=== PATIENT | male | born 1955 | race Caucasian/White ===

== ENCOUNTER 2018-01-19 13:14 | Emergency (ER) | payer SELFPAY ==
[~2018-01-19] VITALS: Ht 177.8 cm; Wt 92.0 kg
[2018-01-19 13:19] VITALS: BP 196/110; PULSE 96; RESP 16; TEMP 97.5; O2SAT 98
[2018-01-19] MEDS ORDERED: MORPHINE SULFATE 4 MG/ML INJ IV PUSH ONE (13:30)
[2018-01-19] MEDS ORDERED: ONDANSETRON HCL 4 MG/2 ML VIAL IV PUSH ONE (13:30)
[2018-01-19] MEDS ORDERED: SODIUM CHLORIDE 0.9% FLUSH 10 ML FLUSH IV FLUSH PRN (13:30)
--- NOTE | 2018-01-19 13:41 | PD ---
HPI Chief Complaint: Flank/Kidney Pain Time Seen by Provider: 13:21 Travel History International Travel<30 days: No Contact w/Intl Traveler<30days: No Traveled to known affect area: No History of Present Illness HPI Patient was seen and examined in the presence of a nurse at all times This is a 62-year-old male who presents for left flank pain. He states that around 10:30 AM, he had gradual onset of left flank pain radiating to the left lower abdomen. No associated fever, chills, nausea, vomiting, diarrhea. No urinary urgency, frequency, dysuria, hematuria. He states that it felt like he needed to have a bowel movement so he sat on the toilet and bear down and there is only a small amount of bright red blood on the toilet paper. No stool. He does have a history of hemorrhoids. He states that he has never had a colonoscopy. No history of kidney stones. The pain is not aggravated by bending or twisting. No focal weakness, numbness, tingling, saddle paresthesias , bowel or bladder dysfunction, IV drug abuse. He states that he has been otherwise well recently other than a mild cough for about a week and a half. He does continue to smoke cigarettes heavily. He took an Aleve this morning before the pain started but has not otherwise taken anything for the pain. Symptoms are mild in severity. Sore in nature. Onset gradual. PFSH Past Medical History Narrative Medical Hepatitis C status post treatment Diminished Hearing: No Hepatitis: Yes (C) Tetanus Vaccination: Unknown Influenza Vaccination: No Past Surgical History Surgical History: No Previous Surgery Social History Alcohol Use: No (FORMER) Tobacco Use: Yes Substance Use: No Allergies-Medications (Allergen,Severity, Reaction): Coded Allergies: No Known Allergies (Unverified , 01/19/18) Review of Systems Except as stated in HPI: all other systems reviewed are Neg Physical Exam Narrative GENERAL: Alert, well nourished, well appearing patient resting on the bed in no acute distress. Vital Signs reviewed SKIN: Focused skin assessment warm/dry. HEAD: Atraumatic. Normocephalic. EYES: Pupils equal and round. No scleral icterus. No injection or drainage. ENT: No nasal bleeding or discharge. Mucous membranes pink and moist. NECK: Trachea midline. No JVD. Spontaneous, painless full range of motion with no meningismus CARDIOVASCULAR: Regular rate and rhythm. No murmur appreciated. Extremities warm and well perfused with bounding peripheral pulses RESPIRATORY: No accessory muscle use. Clear to auscultation. Breath sounds equal bilaterally. Breathing easily and speaking in full sentences GASTROINTESTINAL: Abdomen soft, tender in left lower quadrant, left mid abdomen and left flank, nondistended. Normal bowel sounds. No rigid, rebound Rectal exam performed in presence of nurse Rylee: Normal tone. No obvious masses. Small amount of light pink blood in vault. No melena. No saddle paresthesias MUSCULOSKELETAL: No obvious deformities. No clubbing. No cyanosis. No edema. Compartments are soft NEUROLOGICAL: Awake and alert. No obvious cranial nerve deficits. Motor grossly within normal limits. Normal speech. Sensation intact. Normal gait Data Data Last Documented VS Vital Signs Date Time Temp Pulse Resp B/P (MAP) Pulse Ox O2 Delivery O2 Flow Rate FiO2 01/19/18 14:49 79 16 181/91 (121) 94 Room Air 01/19/18 13:19 97.5 Orders Orders Complete Blood Count With Diff (01/19/18 13:29) Comprehensive Metabolic Panel (01/19/18 13:29) Lipase (01/19/18 13:29) Prothrombin Time / Inr (Pt) (01/19/18 13:29) Act Partial Throm Time (Ptt) (01/19/18 13:29) Urinalysis - C+S If Indicated (01/19/18 13:29) Ct Abd/Pel W/O Iv Contrast (01/19/18 13:29) Iv Access Insert/Monitor (01/19/18 13:29) Ecg Monitoring (01/19/18 13:29) Oximetry (01/19/18 13:29) Sodium Chloride 0.9% Flush (Ns Flush) (01/19/18 13:30) Electrocardiogram (01/19/18 13:29) Chest, Single Ap (01/19/18 13:29) Morphine Inj (Morphine Inj) (01/19/18 13:30) Ondansetron Inj (Zofran Inj) (01/19/18 13:30) Ketorolac Inj (Toradol Inj) (01/19/18 14:45) Chest, Pa & Lat (01/19/18 ) Urine Culture (01/19/18 14:48) Labs Laboratory Tests Test 01/19/18 13:43 01/19/18 14:48 White Blood Count 8.7 TH/MM3 Red Blood Count 5.01 MIL/MM3 Hemoglobin 14.7 GM/DL Hematocrit 45.8 % Mean Corpuscular Volume 91.3 FL Mean Corpuscular Hemoglobin 29.4 PG Mean Corpuscular Hemoglobin Concent 32.2 % Red Cell Distribution Width 15.6 % Platelet Count 117 TH/MM3 Mean Platelet Volume 10.1 FL Neutrophils (%) (Auto) 87.0 % Lymphocytes (%) (Auto) 8.8 % Monocytes (%) (Auto) 3.0 % Eosinophils (%) (Auto) 0.2 % Basophils (%) (Auto) 1.0 % Neutrophils # (Auto) 7.5 TH/MM3 Lymphocytes # (Auto) 0.8 TH/MM3 Monocytes # (Auto) 0.3 TH/MM3 Eosinophils # (Auto) 0.0 TH/MM3 Basophils # (Auto) 0.1 TH/MM3 CBC Comment DIFF FINAL Differential Comment Prothrombin Time 12.1 SEC Prothromb Time International Ratio 1.2 RATIO Activated Partial Thromboplast Time 27.0 SEC Blood Urea Nitrogen 26 MG/DL Creatinine 1.60 MG/DL Random Glucose 132 MG/DL Total Protein 7.9 GM/DL Albumin 3.8 GM/DL Calcium Level 8.7 MG/DL Alkaline Phosphatase 76 U/L Aspartate Amino Transf (AST/SGOT) 30 U/L Alanine Aminotransferase (ALT/SGPT) 33 U/L Total Bilirubin 0.7 MG/DL Sodium Level 138 MEQ/L Potassium Level 4.5 MEQ/L Chloride Level 106 MEQ/L Carbon Dioxide Level 21.1 MEQ/L Anion Gap 11 MEQ/L Estimat Glomerular Filtration Rate 44 ML/MIN Lipase 148 U/L Urine Collection Type CLEAN CATCH Urine Color YELLOW Urine Turbidity CLEAR Urine pH 5.0 Urine Specific [place] GREATER THAN 1.030 Urine Protein 300 OR GREATER mg/dL Urine Glucose (UA) NEG mg/dL Urine Ketones 15 mg/dL Urine Occult Blood LARGE Urine Nitrite NEG Urine Bilirubin SMALL Urine Urobilinogen 1.0 MG/DL Urine Leukocyte Esterase NEG Urine RBC 20-24 /hpf Urine WBC 9-14 /hpf Urine Squamous Epithelial Cells 0-5 /hpf Microscopic Urinalysis Comment CULTURE INDICATED Urine Collection Time 14:483 MDM Medical Decision Making Medical Screen Exam Complete: Yes Emergency Medical Condition: Yes Medical Record Reviewed: Yes Interpretation(s) Laboratory Tests Test 01/19/18 13:43 01/19/18 14:48 White Blood Count 8.7 TH/MM3 Red Blood Count 5.01 MIL/MM3 Hemoglobin 14.7 GM/DL Hematocrit 45.8 % Mean Corpuscular Volume 91.3 FL Mean Corpuscular Hemoglobin 29.4 PG Mean Corpuscular Hemoglobin Concent 32.2 % Red Cell Distribution Width 15.6 % Platelet Count 117 TH/MM3 Mean Platelet Volume 10.1 FL Neutrophils (%) (Auto) 87.0 % Lymphocytes (%) (Auto) 8.8 % Monocytes (%) (Auto) 3.0 % Eosinophils (%) (Auto) 0.2 % Basophils (%) (Auto) 1.0 % Neutrophils # (Auto) 7.5 TH/MM3 Lymphocytes # (Auto) 0.8 TH/MM3 Monocytes # (Auto) 0.3 TH/MM3 Eosinophils # (Auto) 0.0 TH/MM3 Basophils # (Auto) 0.1 TH/MM3 CBC Comment DIFF FINAL Differential Comment Prothrombin Time 12.1 SEC Prothromb Time International Ratio 1.2 RATIO Activated Partial Thromboplast Time 27.0 SEC Blood Urea Nitrogen 26 MG/DL Creatinine 1.60 MG/DL Random Glucose 132 MG/DL Total Protein 7.9 GM/DL Albumin 3.8 GM/DL Calcium Level 8.7 MG/DL Alkaline Phosphatase 76 U/L Aspartate Amino Transf (AST/SGOT) 30 U/L Alanine Aminotransferase (ALT/SGPT) 33 U/L Total Bilirubin 0.7 MG/DL Sodium Level 138 MEQ/L Potassium Level 4.5 MEQ/L Chloride Level 106 MEQ/L Carbon Dioxide Level 21.1 MEQ/L Anion Gap 11 MEQ/L Estimat Glomerular Filtration Rate 44 ML/MIN Lipase 148 U/L Urine Collection Type CLEAN CATCH Urine Color YELLOW Urine Turbidity CLEAR Urine pH 5.0 Urine Specific [place] GREATER THAN 1.030 Urine Protein 300 OR GREATER mg/dL Urine Glucose (UA) NEG mg/dL Urine Ketones 15 mg/dL Urine Occult Blood LARGE Urine Nitrite NEG Urine Bilirubin SMALL Urine Urobilinogen 1.0 MG/DL Urine Leukocyte Esterase NEG Urine RBC 20-24 /hpf Urine WBC 9-14 /hpf Urine Squamous Epithelial Cells 0-5 /hpf Microscopic Urinalysis Comment CULTURE INDICATED Urine Collection Time 14:483 Last 24 hours Impressions Chest X-Ray 01/19/18 1329 Signed Impressions: Service Date/Time: Friday, January 19, 2018 13:44 - CONCLUSION: Hazy bibasilar parenchymal opacities. Yung Olivarez MD Abdomen/Pelvis CT 01/19/18 1329 Signed Impressions: Service Date/Time: Friday, January 19, 2018 14:00 - CONCLUSION: 2 mm left UVJ stone with mild obstruction Residual 1mm calculi in both kidneys. Wild Lopez MD FACR Chest X-Ray 01/19/18 0000 Signed Impressions: Service Date/Time: Friday, January 19, 2018 14:39 - CONCLUSION: 1. No acute cardiopulmonary disease. Elio Hunter MD Differential Diagnosis UTI, pyelonephritis, nephrolithiasis, diverticulitis, bronchitis, pneumonia Narrative Course IV access was established. Labs, imaging were performed. Two-view chest x-ray was performed after single view x-ray showed possible basilar opacities versus respiratory effort. Patient has a 2 mm left ureteral calculus at the UVJ. Patient's pain was controlled with a dose of morphine and Toradol. He was given IV fluids. Upon reassessment at 3:30 PM: He is resting comfortably on the bed in no acute distress. His pain is well controlled. No vomiting. He was counseled regarding results of his workup. Plan for discharge with supportive care, pain control, Keflex and close outpatient follow-up. Patient was also counseled regarding smoking cessation. Patient understands the importance of close outpatient follow-up. He understands he may require further testing and treatment as an outpatient. He understands strict return indications. He is comfortable with this plan and eager to go home. [facility] Point of Care Internal Pos. & Neg. Controls: Passed Fecal Specimen Occult Blood: Positive (Light pink blood, minimal stool sample present) Diagnosis Primary Impression: Left ureteral calculus Referrals: Walker Estrella DO Patient Instructions: General Instructions, Kidney Stones (DC) Additional Instructions: Use [place] as needed for severe pain. No alcohol or driving after this medication. Take Flomax as directed. Take albuterol as needed for wheezing. Take Levaquin as directed. Follow-up with urologist. Return with worsening symptoms. Follow-up with primary physician in 3 days for recheck including of blood pressure. Med/Other Pt SpecificInfo: Prescription(s) given Scripts Albuterol 8.5 GM Inh (Proair Hfa 8.5 GM Inh) 90 Mcg/Act Aer 2 PUFF INH Q4-6H Y for SHORTNESS OF BREATH, #1 INHALER 0 Refills 108 mcg/actuation Prov: Elke Solorzano MD 01/19/18 Levofloxacin (Levaquin) 750 Mg Tablet 750 MG PO DAILY for Infection for 5 Days, #5 TAB 0 Refills Prov: Elke Solorzano MD 01/19/18 Tamsulosin (Flomax) 0.4 Mg Cap 0.4 MG PO HS for 5 Days, #30 CAP 0 Refills Prov: Elke Solorzano MD 01/19/18 Hydrocodone-Acetaminophen ([place]) 5 Mg-325 Mg Tab 1 TAB PO Q6H Y for PAIN, #15 TAB 0 Refills Prov: Elke Solorzano MD 01/19/18 Disposition: 01 DISCHARGE HOME Condition: Stable Elke Solorzano MD Jan 19, 2018 13:41
[2018-01-19 13:53] LABS: AUTOMATED NEUTROPHIL # 7.5 TH/MM3 (1.8-7.7); BASOPHIL # 0.1 TH/MM3 (0-0.2); EOSINOPHIL % 0.2 % (0.0-4.0); HEMATOCRIT 45.8 % (39.0-51.0); HEMOGLOBIN 14.7 GM/DL (13.0-17.0); LYMPH % 8.8 % (9.0-44.0); LYMPHOCYTE # 0.8 TH/MM3 (1.0-4.8); MEAN CELL VOLUME 91.3 FL (80.0-100.0); MEAN CORPUSCULAR HEMOGLOBIN 29.4 PG (27.0-34.0); MEAN CORPUSCULAR HGB CONC 32.2 % (32.0-36.0); MEAN PLATELET VOLUME 10.1 FL (7.0-11.0); MONOCYTE # 0.3 TH/MM3 (0-0.9); PLATELET COUNT 117 TH/MM3 (150-450); RED BLOOD COUNT 5.01 MIL/MM3 (4.50-5.90); RED CELL DISTRIBUTION WIDTH 15.6 % (11.6-17.2); WHITE BLOOD COUNT 8.7 TH/MM3 (4.0-11.0)
[2018-01-19 13:54] VITALS: RESP 18; O2SAT 95
[2018-01-19 14:08] LABS: CHLORIDE 106 MEQ/L (98-107); SODIUM (NA) 138 MEQ/L (136-145)
[2018-01-19 14:12] VITALS: BP 177/102; PULSE 92; RESP 16; O2SAT 92
[2018-01-19 14:12] LABS: CALCIUM 8.7 MG/DL (8.5-10.1)
[2018-01-19 14:13] LABS: ALBUMIN 3.8 GM/DL (3.4-5.0); BICARBONATE 21.1 MEQ/L (21.0-32.0); BLOOD UREA NITROGEN 26 MG/DL (7-18); GLUCOSE,RANDOM 132 MG/DL (74-106)
[2018-01-19 14:16] LABS: ALT (GPT) 33 U/L (12-78); AST (GOT) 30 U/L (15-37); GLOMERULAR FILTRATION RATE 44 ML/MIN (>89); INTERNATIONAL NORMALIZED RATIO 1.2 RATIO; PROTHROMBIN TIME - PATIENT 12.1 SEC (9.8-11.6)
[2018-01-19 14:17] LABS: TOTAL BILIRUBIN ADULT 0.7 MG/DL (0.2-1.0); TOTAL PROTEIN 7.9 GM/DL (6.4-8.2)
[2018-01-19 14:18] LABS: ALKALINE PHOSPHATASE 76 U/L (45-117)
--- NOTE | 2018-01-19 14:18 | RADRPT ---
EXAM DATE/TIME: 01/19/2018 14:00 [facility] COMPARISON: No previous studies available for comparison. INDICATIONS : Left flank pain today. ORAL CONTRAST: No oral contrast ingested. RADIATION DOSE: 24.12 CTDIvol (mGy) MEDICAL HISTORY : Hepatitis C. SURGICAL HISTORY : None. ENCOUNTER: Initial ACUITY: 1 day PAIN SCALE: 10/10 LOCATION: Left flank TECHNIQUE: Volumetric scanning of the abdomen and pelvis was performed. Using automated exposure control and ad justment of the mA and/or kV according to patient size, radiation dose was kept as low as reasonably achievable to obtain optimal diagnostic quality images. DICOM format image data is available electro nically for review and comparison. FINDINGS: The lung base is clear. The liver is small shrunken and free of focal defects. Gallbladder unremarkable Pancreas and adrenal glands appear normal The spleen is unremarkable Right kidney: 2, 1 mm nonobstructing calculi Left kidney: Moderate perinephric stranding with 1 mm calculus in the lower pole. The ureter is prominent extendi ng into the pelvis with areas 2 mm left UVJ stone. Bladder prostate and seminal vesicles unremarkable Bone windows reveal only degenerative changes. CONCLUSION: 2 mm left UVJ stone with mild obstruction Residual 1mm calculi in both kidneys. Wild Lopez MD FACR on January 19, 2018 at 14:14 Board Certified Radiologist. This report was verified electronically.
--- NOTE | 2018-01-19 14:20 | RADRPT ---
EXAM DATE/TIME: 01/19/2018 13:44 [facility] COMPARISON: No previous studies available for comparison. INDICATIONS : Cough. MEDICAL HISTORY : Hepatitis C. SURGICAL HISTORY : None. ENCOUNTER: Initial ACUITY: 1 day PAIN SCORE: 11/29 LOCATION: chest FINDINGS: There is mild hazy parenchymal opacity over the lung bases. This may be mild edema or developing infi ltrate. Heart is borderline in size. No significant effusion is suspected. CONCLUSION: Hazy bibasilar parenchymal opacities. Yung Olivarez MD on January 19, 2018 at 14:15 Board Certified Radiologist. This report was verified electronically.
[2018-01-19] MEDS ORDERED: KETOROLAC TROMETHAMINE 30 MG/ML (IVP) VIAL IV PUSH ONE (14:45)
[2018-01-19 14:49] VITALS: BP 181/91; PULSE 79; RESP 16; O2SAT 94
[2018-01-19 14:55] LABS: BILIRUBIN, URINE SMALL (NEG); BLOOD, URINE LARGE (NEG); GLUCOSE,URINE NEG (NEG); KETONE, URINE 15 mg/dL (NEG); NITRITE,URINE NEG (NEG); URINE COLOR YELLOW (YELLW/STRAW); URINE LEUKOCYTE ESTERASE NEG (NEG)
[2018-01-19 15:01] LABS: SQUAMOUS EPITHELIAL CELL URINE 0-5 /hpf (0-5)
--- NOTE | 2018-01-19 15:29 | RADRPT ---
EXAM DATE/TIME: 01/19/2018 14:39 [facility] COMPARISON: No previous studies available for comparison. INDICATIONS : Cough MEDICAL HISTORY : Hepatitis C. SURGICAL HISTORY : None. ENCOUNTER: Subsequent ACUITY: 1 day PAIN SCORE: 10 LOCATION: Bilateral chest FINDINGS: PA and lateral views of the chest demonstrate the lungs to be symmetrically aerated without evidence of mass, infiltrate or effusion. The cardiomediastinal contours are unremarkable. Osseous structure s are intact. CONCLUSION: 1. No acute cardiopulmonary disease. Elio Hunter MD on January 19, 2018 at 15:28 Board Certified Radiologist. This report was verified electronically.
[2018-01-19] MEDS ORDERED: TAMS5CAP PO (16:03)
[2018-01-19] MEDS ORDERED: NORC5TAB PO (16:03)
[2018-01-19] MEDS ORDERED: LEVA750T9 PO (16:03)
[2018-01-19] MEDS ORDERED: ALBUAER3 INH (16:03)
[2018-01-19 16:10] VITALS: BP 160/86
--- NOTE | 2018-01-20 09:53 | EKG ---
Date Performed: 01/19/2018 Time Performed: 13:38:52 PTAGE: 62 years EKG: Sinus rhythm POSSIBLE LEFT ATRIAL ENLARGEMENT POSSIBLE LEFT VENTRICULAR HYPERTROPHY POSSIBLE INFERIOR MYOCARDIAL INFARCTION ABNORMAL ECG NO PREVIOUS TRACING DOCTOR: Wiliam Ch Interpretating Date/Time 01/20/2018 09:51:39
== END 2018-01-19 16:32 | disposition home or self-care (01) ==
LOC: PHED 13:14
DX: N20.1 Calculus of ureter (principal); R94.31 Abnormal electrocardiogram [ECG] [EKG]; R05 Cough; F17.210 Nicotine dependence, cigarettes, uncomplicated
CPT/HCPCS: 71045; 71046; 74176; 80053; 81001; 83690; 85025; 85610; 85730; 87086; 93005; 96374; 96375; 99285; J1885; J2270; J2405

== ENCOUNTER 2018-03-10 20:27 | Observation (INO) | payer SELFPAY ==
[~2018-03-10] VITALS: Ht 177.8 cm; Wt 96.2 kg
[~2018-03-10 20:27] MED LIST: ALBUAER3 INH; LEVA750T9 PO; NORC5TAB PO; TAMS5CAP PO
[2018-03-10 20:50] VITALS: BP 169/103; PULSE 102; RESP 32; TEMP 98.2; O2SAT 98
--- NOTE | 2018-03-10 21:12 | PD ---
HPI Chief Complaint: Respiratory Symptoms Time Seen by Provider: 21:10 Travel History International Travel<30 days: No Contact w/Intl Traveler<30days: No Traveled to known affect area: No History of Present Illness HPI 62-year-old male patient with history of previous kidney stones, presents to the ER today for several weeks history of worsening leg swelling, dyspnea on exertion, shortness of breath, coughing. He denies any fevers, chest pains, or any other symptoms. He states it gets worse when he lays down and he has to try to switch side sometimes because of the breathing issues. He denies previous issue with this. Modifying Factors: None Associated Signs & Symptoms: Worsening dyspnea on exertion, leg swelling Risk Factors: None PFSH Past Medical History Diminished Hearing: No Hepatitis: Yes (C) Social History Alcohol Use: No (FORMER) Tobacco Use: Yes Substance Use: No Allergies-Medications (Allergen,Severity, Reaction): Coded Allergies: No Known Allergies (Unverified , 03/10/18) Reported Meds & Prescriptions Reported Meds & Active Scripts Active Proair Hfa 8.5 GM Inh (Albuterol Sulfate) 90 Mcg/Act Aer 2 Puff INH Q4-6H PRN 108 mcg/actuation Review of Systems Except as stated in HPI: all other systems reviewed are Neg Physical Exam Narrative GENERAL: Well-developed elderly white male patient currently and mild respiratory distress. Awake and oriented 3. SKIN: Focused skin assessment warm/dry. HEAD: Atraumatic. Normocephalic. EYES: Pupils equal and round. No scleral icterus. No injection or drainage. ENT: No nasal bleeding or discharge. Mucous membranes pink and moist. NECK: Trachea midline. No JVD. Supple. CARDIOVASCULAR: Regular rate and rhythm. No murmur appreciated. RESPIRATORY: No accessory muscle use. Bibasilar wheezing. Breath sounds equal bilaterally. GASTROINTESTINAL: Abdomen soft, non-tender, nondistended. Hepatic and splenic margins not palpable. MUSCULOSKELETAL: No obvious deformities. No clubbing. No cyanosis. Pitting edema both legs. NEUROLOGICAL: Awake and alert. No obvious cranial nerve deficits. Motor grossly within normal limits. Normal speech. PSYCHIATRIC: Appropriate mood and affect; insight and judgment normal. Data Data Last Documented VS Vital Signs Date Time Temp Pulse Resp B/P (MAP) Pulse Ox O2 Delivery O2 Flow Rate FiO2 03/10/18 22:21 91 20 157/85 (109) 95 Room Air 03/10/18 20:50 98.2 Orders Orders Complete Blood Count With Diff (03/10/18 21:10) Comprehensive Metabolic Panel (03/10/18 21:10) B-Type Natriuretic Peptide (03/10/18 21:10) Iv Access Insert/Monitor (03/10/18 21:10) Ecg Monitoring (03/10/18 21:10) Oximetry (03/10/18 21:10) Oxygen Administration (03/10/18 21:10) Chest, Single Ap (03/10/18 21:10) Sodium Chloride 0.9% Flush (Ns Flush) (03/10/18 21:15) Albuterol-Ipratropium Neb (Duoneb Neb) (03/10/18 21:45) Furosemide Inj (Lasix Inj) (03/10/18 22:45) Us Leg Venous Doppler Bilat (03/10/18 22:42) Electrocardiogram (03/10/18 22:50) Admit Order (Ed Use Only) (03/10/18 22:58) Labs Laboratory Tests Test 03/10/18 21:20 White Blood Count 8.1 TH/MM3 Red Blood Count 5.34 MIL/MM3 Hemoglobin 15.7 GM/DL Hematocrit 47.7 % Mean Corpuscular Volume 89.3 FL Mean Corpuscular Hemoglobin 29.4 PG Mean Corpuscular Hemoglobin Concent 32.9 % Red Cell Distribution Width 16.4 % Platelet Count 97 TH/MM3 Mean Platelet Volume 10.3 FL Neutrophils (%) (Auto) 67.1 % Lymphocytes (%) (Auto) 23.7 % Monocytes (%) (Auto) 7.4 % Eosinophils (%) (Auto) 1.0 % Basophils (%) (Auto) 0.8 % Neutrophils # (Auto) 5.4 TH/MM3 Lymphocytes # (Auto) 1.9 TH/MM3 Monocytes # (Auto) 0.6 TH/MM3 Eosinophils # (Auto) 0.1 TH/MM3 Basophils # (Auto) 0.1 TH/MM3 CBC Comment AUTO DIFF Differential Comment AUTO DIFF CONFIRMED Platelet Estimate LOW Platelet Morphology Comment NORMAL Blood Urea Nitrogen 28 MG/DL Creatinine 1.40 MG/DL Random Glucose 89 MG/DL Total Protein 7.3 GM/DL Albumin 3.4 GM/DL Calcium Level 8.7 MG/DL Alkaline Phosphatase 90 U/L Aspartate Amino Transf (AST/SGOT) 36 U/L Alanine Aminotransferase (ALT/SGPT) 29 U/L Total Bilirubin 0.7 MG/DL Sodium Level 143 MEQ/L Potassium Level 4.2 MEQ/L Chloride Level 112 MEQ/L Carbon Dioxide Level 23.4 MEQ/L Anion Gap 8 MEQ/L Estimat Glomerular Filtration Rate 51 ML/MIN B-Type Natriuretic Peptide 3273 PG/ML MDM Medical Decision Making Medical Screen Exam Complete: Yes Emergency Medical Condition: Yes Medical Record Reviewed: Yes Interpretation(s) Laboratory Tests Test 03/10/18 21:20 Platelet Count 97 TH/MM3 (150-450) Platelet Estimate LOW (NORMAL) Blood Urea Nitrogen 28 MG/DL (7-18) Creatinine 1.40 MG/DL (0.60-1.30) Chloride Level 112 MEQ/L (98-107) Estimat Glomerular Filtration Rate 51 ML/MIN (>89) B-Type Natriuretic Peptide 3273 PG/ML (0-100) Last 24 hours Impressions Chest X-Ray 03/10/182109 Signed Impressions: Service Date/Time: Monday, March 10, 2018 21:10 - CONCLUSION: 1. No active disease. Mild basilar atelectasis. Ozzy Patel MD Differential Diagnosis Dependent edema versus COPD exacerbation versus pneumonia versus CHF Narrative Course BNP is fairly elevated. Symptoms and exam is concerning for underlying CHF. Patient has COPD history and was given albuterol nebulizers without significant improvement. Lasix was given IV in the ER. At this point, my plan would be to admit him for further evaluation and treatment for new onset CHF. Case has been discussed with Dr. Starks for admission. Diagnosis Primary Impression: CHF, acute Admitting Information Admitting Physician Requests: Admit Jered Hodges MD Mar 10, 2018 21:12
[2018-03-10] MEDS ORDERED: SODIUM CHLORIDE 0.9% FLUSH 10 ML FLUSH IVF PRN (21:15)
[2018-03-10 21:31] LABS: AUTOMATED NEUTROPHIL # 5.4 TH/MM3 (1.8-7.7); BASOPHIL # 0.1 TH/MM3 (0-0.2); BASOPHIL % 0.8 % (0.0-2.0); EOSINOPHIL # 0.1 TH/MM3 (0-0.4); HEMATOCRIT 47.7 % (39.0-51.0); HEMOGLOBIN 15.7 GM/DL (13.0-17.0); LYMPH % 23.7 % (9.0-44.0); LYMPHOCYTE # 1.9 TH/MM3 (1.0-4.8); MEAN CELL VOLUME 89.3 FL (80.0-100.0); MEAN CORPUSCULAR HEMOGLOBIN 29.4 PG (27.0-34.0); MEAN CORPUSCULAR HGB CONC 32.9 % (32.0-36.0); MEAN PLATELET VOLUME 10.3 FL (7.0-11.0); MONO % 7.4 % (0.0-8.0); MONOCYTE # 0.6 TH/MM3 (0-0.9); NEUT % 67.1 % (16.0-70.0); PLATELET COUNT 97 TH/MM3 (150-450); RED BLOOD COUNT 5.34 MIL/MM3 (4.50-5.90); RED CELL DISTRIBUTION WIDTH 16.4 % (11.6-17.2); WHITE BLOOD COUNT 8.1 TH/MM3 (4.0-11.0)
--- NOTE | 2018-03-10 21:31 | RADRPT ---
EXAM DATE/TIME: 03/10/2018 21:10 [facility] COMPARISON: CHEST PA & LAT, January 19, 2018, 14:39. INDICATIONS : Short of breath. MEDICAL HISTORY : Hepatitis C. SURGICAL HISTORY : None. ENCOUNTER: Initial ACUITY: 2 weeks PAIN SCORE: 2/10 LOCATION: Bilateral chest FINDINGS: A single view of the chest demonstrates the lungs to be symmetrically aerated without evidence of mas s, infiltrate or effusion. Mild basilar atelectasis. The cardiomediastinal contours are unremarkable . Osseous structures are intact. CONCLUSION: 1. No active disease. Mild basilar atelectasis. Ozzy Patel MD on March 10, 2018 at 21:28 Board Certified Radiologist. This report was verified electronically.
[2018-03-10] MEDS: RESP: ALBUTEROL 2.5 MG/IPRATROPIUM 0.5 MG NEB (SCH) INH ×2 (21:41→21:52)
[2018-03-10 21:58] LABS: CHLORIDE 112 MEQ/L (98-107); SODIUM (NA) 143 MEQ/L (136-145)
[2018-03-10 22:01] LABS: ALBUMIN 3.4 GM/DL (3.4-5.0); BICARBONATE 23.4 MEQ/L (21.0-32.0); CALCIUM 8.7 MG/DL (8.5-10.1); GLUCOSE,RANDOM 89 MG/DL (74-106)
[2018-03-10 22:02] LABS: BLOOD UREA NITROGEN 28 MG/DL (7-18)
[2018-03-10 22:04] LABS: ALT (GPT) 29 U/L (12-78); AST (GOT) 36 U/L (15-37)
[2018-03-10 22:05] LABS: GLOMERULAR FILTRATION RATE 51 ML/MIN (>89)
[2018-03-10 22:06] LABS: TOTAL BILIRUBIN ADULT 0.7 MG/DL (0.2-1.0); TOTAL PROTEIN 7.3 GM/DL (6.4-8.2)
[2018-03-10 22:07] LABS: ALKALINE PHOSPHATASE 90 U/L (45-117)
[2018-03-10 22:21] VITALS: BP 157/85; PULSE 91; RESP 20; O2SAT 95
[2018-03-10] MEDS ORDERED: FUROSEMIDE 20 MG/2 ML VIAL IV PUSH ONE (22:45)
[2018-03-10] MEDS ORDERED: ONDANSETRON HCL 4 MG/2 ML VIAL IVP PRN (23:00)
[2018-03-10] MEDS ORDERED: SODIUM CHLORIDE 0.9% FLUSH 10 ML FLUSH IV FLUSH PRN (23:00)
[2018-03-10] MEDS ORDERED: ACETAMINOPHEN/HYDROcodone 325 MG/5 MG TAB PO PRN (23:00)
[2018-03-10] MEDS ORDERED: LACTULOSE SYRUP 20 GM/30 ML CUP PO PRN (23:00)
[2018-03-10] MEDS ORDERED: ACETAMINOPHEN/HYDROcodone 325 MG/10 MG TAB PO PRN (23:00)
[2018-03-10] MEDS ORDERED: BISACODYL 10 MG SUPP RECTAL PRN (23:00)
[2018-03-10] MEDS ORDERED: SENNOSIDES 8.6 MG TAB PO PRN (23:00)
[2018-03-10] MEDS ORDERED: RESP: ALBUTEROL 2.5 MG/IPRATROPIUM 0.5 MG NEB (PRN) NEB (23:00)
[2018-03-10] MEDS ORDERED: ACETAMINOPHEN 325 MG TAB PO PRN (23:00)
[2018-03-10] MEDS ORDERED: MAGNESIUM HYDROXIDE SUSP 30 ML CUP PO PRN (23:00)
[2018-03-11] VITALS (8 sets, daily range): BP systolic 145–185; BP diastolic 77–117; PULSE 69–95; RESP 18–20; TEMP 96–97.9; O2SAT 91–97
--- NOTE | 2018-03-11 00:21 | RADRPT ---
EXAM DATE/TIME: 03/10/2018 23:42 [facility] COMPARISON: No previous studies available for comparison. INDICATIONS : Worsening leg swelling and shortness of breath. MEDICAL HISTORY : Hepatitis C. SURGICAL HISTORY : None. ENCOUNTER: Initial ACUITY: 1 month PAIN SCORE: 2/10 LOCATION: Bilateral legs. TECHNIQUE: Venous ultrasound of the left and right leg was performed from the inguinal ligament to the proximal calf. Real-time, color Doppler and spectral tracing, compression and augmentation techniques were us ed. FINDINGS: RIGHT LEG: There is normal compressibility of the deep venous system from the inguinal region to the proximal ca lf. No echogenic clot is seen in the lumen of the common femoral, femoral, popliteal, and posterior tibial veins. There is a normal response of the venous system to proximal and distal augmentation an d respiration. LEFT LEG: There is normal compressibility of the deep venous system from the inguinal region to the proximal ca lf. No echogenic clot is seen in the lumen of the common femoral, femoral, popliteal, and posterior tibial veins. There is a normal response of the venous system to proximal and distal augmentation an d respiration. CONCLUSION: Normal examination. Sameer Guerrero Jr., MD on March 11, 2018 at 0:18 Board Certified Radiologist. This report was verified electronically.
[2018-03-11] MEDS ORDERED: cloNIDine HCL 0.1 MG TAB PO ONE (00:45)
[2018-03-11] MEDS: PRAVASTATIN SOD 40 MG TAB PO SCH (08:41)
[2018-03-11] MEDS: ASPIRIN EC 81 MG TABEC PO SCH (08:41)
[2018-03-11] MEDS: FUROSEMIDE 40 MG/4 ML VIAL IV PUSH SCH ×2 (08:42→16:12)
[2018-03-11] MEDS: SODIUM CHLORIDE 0.9% FLUSH 10 ML FLUSH IV FLUSH SCH ×2 (08:43→21:02)
[2018-03-11] MEDS ORDERED: HEPARIN SODIUM - SQ 10,000 UNITS/ML VIAL SQ SCH (09:00)
[2018-03-11] MEDS ORDERED: DOCUSATE SODIUM 50 MG/SENNA 8.6 MG TAB PO SCH (09:00)
[2018-03-11 09:05] LABS: AUTOMATED NEUTROPHIL # 4.3 TH/MM3 (1.8-7.7); BASOPHIL # 0.1 TH/MM3 (0-0.2); BASOPHIL % 1.1 % (0.0-2.0); EOSINOPHIL # 0.1 TH/MM3 (0-0.4); EOSINOPHIL % 1.2 % (0.0-4.0); HEMATOCRIT 45.5 % (39.0-51.0); HEMOGLOBIN 14.4 GM/DL (13.0-17.0); LYMPH % 22.1 % (9.0-44.0); LYMPHOCYTE # 1.4 TH/MM3 (1.0-4.8); MEAN CELL VOLUME 90.3 FL (80.0-100.0); MEAN CORPUSCULAR HEMOGLOBIN 28.5 PG (27.0-34.0); MEAN CORPUSCULAR HGB CONC 31.6 % (32.0-36.0); MONO % 9.2 % (0.0-8.0); MONOCYTE # 0.6 TH/MM3 (0-0.9); NEUT % 66.4 % (16.0-70.0); PLATELET COUNT 95 TH/MM3 (150-450); RED BLOOD COUNT 5.04 MIL/MM3 (4.50-5.90); RED CELL DISTRIBUTION WIDTH 15.9 % (11.6-17.2); WHITE BLOOD COUNT 6.5 TH/MM3 (4.0-11.0)
[2018-03-11 09:10] LABS: CHLORIDE 110 MEQ/L (98-107); SODIUM (NA) 144 MEQ/L (136-145)
[2018-03-11 09:14] LABS: CALCIUM 8.7 MG/DL (8.5-10.1)
[2018-03-11 09:15] LABS: ALBUMIN 3.1 GM/DL (3.4-5.0); BICARBONATE 28.6 MEQ/L (21.0-32.0); BLOOD UREA NITROGEN 23 MG/DL (7-18); GLUCOSE,RANDOM 150 MG/DL (74-106)
[2018-03-11 09:18] LABS: ALT (GPT) 29 U/L (12-78); AST (GOT) 33 U/L (15-37); GLOMERULAR FILTRATION RATE 47 ML/MIN (>89)
[2018-03-11 09:19] LABS: TOTAL BILIRUBIN ADULT 0.9 MG/DL (0.2-1.0); TOTAL PROTEIN 6.7 GM/DL (6.4-8.2)
[2018-03-11 09:21] LABS: ALKALINE PHOSPHATASE 81 U/L (45-117)
[2018-03-11 09:23] LABS: TROPONIN I 0.06 NG/ML (0.02-0.05)
[2018-03-11] MEDS ORDERED: RESP: ALBUTEROL 2.5 MG/IPRATROPIUM 0.5 MG NEB (PRN) NEB ×2 (10:00)
--- NOTE | 2018-03-11 10:08 | HHI.HP ---
[facility] Primary [facility] Physician No Primary Care Physician Admission Diagnosis New onset CHF Diagnoses: Chief Complaint: Shortness of breath and edema Travel History International Travel<30 Days: No Contact w/Intl Traveler <30 Da: No Traveled to Known Affected Are: No History of Present Illness This patient is a 62-year-old gentleman with minimal past medical history came to the hospital with increasing shortness of breath over the last 2 months with increase in edema and increased work of breathing with shortness of breath over the last 2 weeks and even. He Came to the Emergency Room for Further Evaluation Treatment Was Found to Have Elevated BNP with Abnormal Chest X-Ray on My Review Is Vascular Congestion. Patient Been Admitted for Congestive Heart Failure Exacerbation. CHF is presumed due to the objective and clinical findings with the patient has no personal history of COPD or CHF. At this time the patient has great improvement after diuresis of 1475 mL due to IV Lasix. Patient's been admitted to the hospital with a heart rate of 30 and tachycardia. These are improved. Review of Systems Constitutional: DENIES: Diaphoretic episodes, Fatigue, Fever, Weight gain, Weight loss, Chills, Dizziness, Change in appetite, Night Sweats Endocrine: DENIES: Heat/cold intolerance, Polydipsia, Polyuria, Polyphagia Eyes: DENIES: Blurred vision, Diplopia, Eye inflammation, Eye pain, Vision loss , Photosensitivity, Double Vision Ears, nose, mouth, throat: DENIES: Tinnitus, Hearing loss, Vertigo, Nasal discharge, Oral lesions, Throat pain, Hoarseness, Ear Pain, Running Nose, Epistaxis, Sinus Pain, Toothache, Odynophagia Respiratory: COMPLAINS OF: Wheezing, Shortness of breath, DENIES: Apneas, Cough , Snoring, Hemoptysis, Sputum production Cardiovascular: COMPLAINS OF: Dyspnea on Exertion, Lower Extremity Edema, Orthopnea, DENIES: Chest pain, Palpitations, Syncope, PND, Claudication Gastrointestinal: DENIES: Abdominal pain, Black stools, Bloody stools, Constipation, Diarrhea, Nausea, Vomiting, Difficulty Swallowing, Anorexia Genitourinary: DENIES: Sexual dysfunction, Urinary frequency, Urinary incontinence, Urgency, Hematuria, Dysuria, Nocturia, Penile Discharge, Testicular Pain, Testicular Swelling Musculoskeletal: DENIES: Joint pain, Muscle aches, Stiffness, Joint Swelling, Back pain, Neck pain Integumentary: DENIES: Abnormal pigmentation, Nail changes, Pruritus, Rash Hematologic/lymphatic: DENIES: Bruising, Lymphadenopathy Immunologic/allergic: DENIES: Eczema, Urticaria Neurologic: DENIES: Abnormal gait, Headache, Localized weakness, Paresthesias, Seizures, Speech Problems, Tremor, Poor Balance Psychiatric: DENIES: Anxiety, Confusion, Mood changes, Depression, Hallucinations, Agitation, Suicidal Ideation, Homicidal Ideation, Delusions Except as stated in HPI: all other systems reviewed are Neg Past Family Social History Past Medical History Hepatitis C, treated Past Surgical History Denies Reported Medications Reviewed in the EMR, patient only takes albuterol for the last several months Allergies: Coded Allergies: No Known Allergies (Unverified , 03/10/18) Active Ordered Medications Reviewed in the EMR Family History Patient does not know his family history Social History Patient has an 80 year pack history Currently smokes half a pack a day No alcohol, lives with his family Physical Exam Vital Signs Vital Signs Date Time Temp Pulse Resp B/P (MAP) Pulse Ox O2 Delivery O2 Flow Rate FiO2 03/11/18 08:00 97.6 88 20 159/92 (114) 95 03/11/18 04:00 97.9 85 20 159/77 (104) 95 03/11/18 03:34 69 03/11/18 00:00 97.8 95 18 185/117 (139) 93 03/10/18 23:25 03/10/18 22:21 91 20 157/85 (109) 95 Room Air 03/10/18 21:15 102 30 98 Room Air 03/10/18 20:50 98.2 102 32 169/103 (125) 98 Physical Exam GENERAL: This is a well-nourished, well-developed patient, in no apparent distress. SKIN: No rashes, ecchymoses or lesions. Cool and dry. HEAD: Atraumatic. Normocephalic. No temporal or scalp tenderness. EYES: Pupils equal round and reactive. Extraocular motions intact. No scleral icterus. No injection or drainage. ENT: Nose without bleeding, purulent drainage or septal hematoma. Throat without erythema, tonsillar hypertrophy or exudate. Uvula midline. Airway patent. NECK: Trachea midline. No JVD or lymphadenopathy. Supple, nontender, no meningeal signs. CARDIOVASCULAR: Regular rate and rhythm without murmurs, gallops, or rubs. RESPIRATORY: Bilateral wheezes and rhonchi, good effort GASTROINTESTINAL: Abdomen soft, non-tender, nondistended. No hepato-splenomegaly , or palpable masses. No guarding. MUSCULOSKELETAL: Extremities without clubbing, cyanosis, there is +2 edema. No joint tenderness, effusion, or edema noted. No calf tenderness. Negative Homans sign bilaterally. NEUROLOGICAL: Awake and alert. Cranial nerves II through XII intact. Motor and sensory grossly within normal limits. Five out of 5 muscle strength in all muscle groups. Normal speech. Laboratory Laboratory Tests Test 03/10/18 21:20 03/11/18 01:20 03/11/18 08:44 White Blood Count 8.1 6.5 Red Blood Count 5.34 5.04 Hemoglobin 15.7 14.4 Hematocrit 47.7 45.5 Mean Corpuscular Volume 89.3 90.3 Mean Corpuscular Hemoglobin 29.4 28.5 Mean Corpuscular Hemoglobin Concent 32.9 31.6 Red Cell Distribution Width 16.4 15.9 Platelet Count 97 95 Mean Platelet Volume 10.3 11.0 Neutrophils (%) (Auto) 67.1 66.4 Lymphocytes (%) (Auto) 23.7 22.1 Monocytes (%) (Auto) 7.4 9.2 Eosinophils (%) (Auto) 1.0 1.2 Basophils (%) (Auto) 0.8 1.1 Neutrophils # (Auto) 5.4 4.3 Lymphocytes # (Auto) 1.9 1.4 Monocytes # (Auto) 0.6 0.6 Eosinophils # (Auto) 0.1 0.1 Basophils # (Auto) 0.1 0.1 CBC Comment AUTO DIFF AUTO DIFF Differential Comment AUTO DIFF CONFIRMED Platelet Estimate LOW Platelet Morphology Comment NORMAL Blood Urea Nitrogen 28 23 Creatinine 1.40 1.50 Random Glucose 89 150 Total Protein 7.3 6.7 Albumin 3.4 3.1 Calcium Level 8.7 8.7 Alkaline Phosphatase 90 81 Aspartate Amino Transf (AST/SGOT) 36 33 Alanine Aminotransferase (ALT/SGPT) 29 29 Total Bilirubin 0.7 0.9 Sodium Level 143 144 Potassium Level 4.2 4.4 Chloride Level 112 110 Carbon Dioxide Level 23.4 28.6 Anion Gap 8 5 Estimat Glomerular Filtration Rate 51 47 B-Type Natriuretic Peptide 3273 Troponin I 0.05 0.06 Result Diagram: 03/11/1884303/11/18843 [facility] Risk Assessment [facility] VTE Risk Assessment: Mod/High Risk (score >= 2) [facility] Risk Assessment Model Point Value = 1 Point Value = 2 Point Value = 3 Point Value = 5 Age 41-60 Minor surgery BMI > 25 kg/m2 Swollen legs Varicose veins or History of unexplained or recurrent spontaneous Oral contraceptives or hormone replacement Sepsis (< 1 month) Serious lung disease, including pneumonia (< 1 month) Abnormal pulmonary function Acute myocardial infarction Congestive heart failure (< 1 month) History of inflammatory bowel disease Medical patient at bed rest Age 61-74 Arthroscopic surgery Major open surgery (> 45 min) Laparoscopic surgery (> 45 min) Malignancy Confined to bed (> 72 hours) Immobilizing plaster cast Central venous access Age >= 75 History of VTE Family history of VTE Factor V Leiden Prothrombin [id number] Lupus anticoagulant Anticardiolipin antibodies Elevated serum homocysteine Heparin-induced thrombocytopenia Other congenital or acquired thrombophilia Stroke (< 1 month) Elective arthroplasty Hip, pelvis, or leg fracture Acute spinal cord injury (< 1 month) Prophylaxis Regimen Total Risk Factor Score Risk Level Prophylaxis Regimen 0-1 Low Early ambulation 2 Moderate Order ONE of the following: *Sequential Compression Device (SCD) *Heparin 5000 units SQ BID 3-4 Higher Order ONE of the following medications: *Heparin 5000 units SQ TID *Enoxaparin/Lovenox 40 mg SQ daily (WT < 150 kg, CrCl > 30 mL/min) *Enoxaparin/Lovenox 30 mg SQ daily (WT < 150 kg, CrCl > 10-29 mL/min) *Enoxaparin/Lovenox 30 mg SQ BID (WT < 150 kg, CrCl > 30 mL/min) AND/OR *Sequential Compression Device (SCD) 5 or more Highest Order ONE of the following medications: *Heparin 5000 units SQ TID (Preferred with Epidurals) *Enoxaparin/Lovenox 40 mg SQ daily (WT < 150 kg, CrCl > 30 mL/min) *Enoxaparin/Lovenox 30 mg SQ daily (WT < 150 kg, CrCl > 10-29 mL/min) *Enoxaparin/Lovenox 30 mg SQ BID (WT < 150 kg, CrCl > 30 mL/min) AND *Sequential Compression Device (SCD) Assessment and Plan Problem List: (1) SOB (shortness of breath) ICD Code: R06.02 - Shortness of breath Plan: Likely multifactorial due to CHF exacerbation Patient likely has underlying COPD with a [id number]-[id number] history Continue with bronchodilators and nebulizers and a short course of steroids (2) HTN (hypertension) ICD Code: I10 - Essential (primary) hypertension (3) CHF, acute ICD Code: I50.9 - Heart failure, unspecified Status: Acute Plan: New onset Workup in progress Possibly due to elevated blood pressures versus cor pulmonale We will continue with medical management for now (4) ARNOLDO (acute kidney injury) ICD Code: N17.9 - Acute kidney failure, unspecified Plan: We will add a low-dose MARGARITA inhibitor Follow-up renal ultrasound Likely chronic from uncontrolled blood pressure Physician Certification 2 Midnight Certification Type: Admission for Inpatient Services Order for Inpatient Services The services are ordered in accordance with Medicare regulations or non- Medicare payer requirements, as applicable. In the case of services not specified as inpatient-only, they are appropriately provided as inpatient services in accordance with the 2-midnight benchmark. Estimated LOS (days): 3 3 days is the estimated time the patient will need to remain in the hospital, assuming treatment plan goals are met and no additional complications. Post-Hospital Plan: Nimco Hernandez MD Mar 11, 2018 10:08
[2018-03-11] MEDS ORDERED: NICOTINE 21 MG/24 HR PATCH T-DERMAL PRN (11:00)
[2018-03-11] MEDS: predniSONE 20 MG TAB PO SCH ×2 (11:00→21:02)
[2018-03-11] MEDS: LISINOPRIL 10 MG TAB PO SCH (11:00)
[2018-03-11 11:35] LABS: BILIRUBIN, URINE NEG (NEG); BLOOD, URINE TRACE (NEG); GLUCOSE,URINE NEG (NEG); KETONE, URINE NEG (NEG); NITRITE,URINE NEG (NEG); PH, URINE 6.5 (5.0-8.5); URINE COLOR OTHER (YELLW/STRAW); URINE LEUKOCYTE ESTERASE NEG (NEG)
[2018-03-11 11:45] LABS: AMORPHOUS SEDIMENT, URINE FEW; RBC, URINE 0-3 /hpf (0-3); SQUAMOUS EPITHELIAL CELL URINE 0-5 /hpf (0-5)
--- NOTE | 2018-03-11 12:47 | RADRPT ---
EXAM DATE/TIME: 03/11/2018 12:02 [place] COMPARISON: No previous studies available for comparison. INDICATIONS : Increased BUN/Creatnine. MEDICAL HISTORY : Hypertension. Chronic obstructive pulmonary disease. Hepatitis C. Dyspnea. Wheezing. Kidney stones. A rthritis. SURGICAL HISTORY : None. ENCOUNTER: Initial ACUITY: 1 day PAIN SCORE: 0/10 LOCATION: Bilateral flank MEASUREMENTS: RIGHT KIDNEY: 13.3 x 5.8 x 5.5 cm LEFT KIDNEY: 11.8 x 5.8 x 6.3 cm COMPLETE APPROPRIATE ITEMS PRE PROCEDURE: ID x 2: Complete NameDate of BirthPatient Name Band Education: Nurse/Technologist explained proce dure to patient/family. Patient/family demonstrates understanding of procedure. FINDINGS: RIGHT KIDNEY: Renal cortex is normal in thickness and echotexture. No hydronephrosis, stone, or mass. LEFT KIDNEY: Renal cortex is normal in thickness and echotexture. No hydronephrosis, stone, or mass. BLADDER: Within normal limits given the degree of distension. MISCELLANEOUS: Also noted is a small amount of ascites in the right upper abdominal quadrant. Small right pleural ef fusion. CONCLUSION: 1. Kidneys and bladder are sonographically normal. 2. Minimal amount of ascites along the hepatic convexity. Small right pleural effusion. Humphrey Bettencourt MD on March 11, 2018 at 12:44 Board Certified Radiologist. This report was verified electronically.
[2018-03-11 14:01] LABS: TROPONIN I 0.05 NG/ML (0.02-0.05)
[2018-03-11] MEDS: HEPARIN SODIUM - SQ 10,000 UNITS/ML VIAL SQ SCH (16:13)
--- NOTE | 2018-03-11 17:50 | ECHRPT ---
Indication: HEART FAILURE CONCLUSIONS Severely dilated left ventricle. Wall thickness is normal. The left ventricular systolic function is severely reduced with an estimated ejection fraction in th e range of 15-20%. Mitral annular calcification is present. Trace mitral valve regurgitation. There is trace tricuspid valve regurgitation. There is estimated mild pulmonary hypertension present (40 mmHg). Trivial pulmonary valve regurgitation. BP: / HR: Rhythm: MEASUREMENTS (Male / Female) Normal Values Technical Quality: 2D ECHO LV Diastolic Diameter PLAX 6.6 cm 4.2 - 5.9 / 3.9 - 5.3 cm LV Systolic Diameter PLAX 6.2 cm IVS Diastolic Thickness 1.0 cm 0.6 - 1.0 / 0.6 - 0.9 cm LVPW Diastolic Thickness 0.9 cm 0.6 - 1.0 / 0.6 - 0.9 cm LV Relative Wall Thickness 0.3 LA Systolic Diameter LX 4.1 cm 3.0 - 4.0 / 2.7 - 3.8 cm M-MODE Aortic Root Diameter MM 3.3 cm AV Cusp Separation MM 1.8 cm DOPPLER Mitral E Point Velocity 103.0 cm/s Mitral A Point Velocity 32.6 cm/s Mitral E to A Ratio 3.2 TR Peak Velocity 270.0 cm/s TR Peak Gradient 29.2 mmHg Right Atrial Pressure 10.0 mmHg Pulmonary Artery Systolic Pressu 39.2 mmHg Right Ventricular Systolic Press 39.2 mmHg FINDINGS LEFT VENTRICLE Severely dilated left ventricle. Wall thickness is normal. The left ventricular systolic function is severely reduced with an estimated ejection fraction in th e range of 15-20%. RIGHT VENTRICLE Normal right ventricular size and systolic function. LEFT ATRIUM The left atrial size is normal. RIGHT ATRIUM The right atrial size is normal. ATRIAL SEPTUM Normal atrial septal thickness without atrial level shunting by limited color doppler interrogation. AORTA The aortic root and proximal ascending aorta are normal in size on limited imaging. MITRAL VALVE Mitral annular calcification is present. Trace mitral valve regurgitation. AORTIC VALVE Trileaflet aortic valve. No aortic valve stenosis or regurgitation. TRICUSPID VALVE There is trace tricuspid valve regurgitation. There is estimated mild pulmonary hypertension present (40 mmHg). PULMONARY VALVE Trivial pulmonary valve regurgitation. VESSELS The inferior vena cava is normal in size. PERICARDIUM No pericardial effusion. Ankita Alvares MD (Electronically Signed) Final Date:11 March 2018 17:49
[2018-03-12] VITALS: BP 174/84; PULSE 93; RESP 21; TEMP 96.9; O2SAT 90
--- NOTE | 2018-03-12 00:21 | EKG ---
Date Performed: 03/10/2018 Time Performed: 23:05:41 PTAGE: 62 years EKG: Sinus rhythm WITH OCCASIONAL VENTRICULAR PREMATURE COMPLEXES ANTERIOR MYOCARDIAL INFARCTION PROBABLE INFERIOR JAN CARDIAL INFARCTION ABNORMAL ECG PREVIOUS TRACING : 01/19/2018 13.38 Since the previous tracing, no significant change noted DOCTOR: Jeferson Butler Interpretating Date/Time 03/12/2018 00:20:15
[2018-03-12] MEDS: HEPARIN SODIUM - SQ 10,000 UNITS/ML VIAL SQ SCH ×2 (02:21→08:50)
[2018-03-12 04:00] VITALS: BP 158/80; PULSE 90; RESP 20; TEMP 98.3; O2SAT 94
[2018-03-12 07:30] VITALS: BP 165/92; PULSE 91; RESP 20; TEMP 96.3; O2SAT 91
[2018-03-12 08:00] VITALS: PULSE 90
[2018-03-12] MEDS: FUROSEMIDE 40 MG/4 ML VIAL IV PUSH SCH (08:48)
[2018-03-12] MEDS: SODIUM CHLORIDE 0.9% FLUSH 10 ML FLUSH IV FLUSH SCH (08:49)
[2018-03-12] MEDS: LISINOPRIL 10 MG TAB PO SCH (08:50)
[2018-03-12] MEDS: ASPIRIN EC 81 MG TABEC PO SCH (08:51)
[2018-03-12] MEDS: predniSONE 20 MG TAB PO SCH (08:51)
[2018-03-12] MEDS: PRAVASTATIN SOD 40 MG TAB PO SCH (08:51)
[2018-03-12 11:30] VITALS: BP 169/99; PULSE 98; RESP 18; TEMP 96.7; O2SAT 96
[2018-03-12] MEDS ORDERED: ATOR40TA16 PO (11:55)
[2018-03-12] MEDS ORDERED: FURO1TAB62 PO (11:55)
[2018-03-12] MEDS ORDERED: ECASA81 PO (11:55)
[2018-03-12] MEDS ORDERED: LISI40TA PO (11:57)
--- NOTE | 2018-03-12 11:59 | HHI.PR ---
Subjective Remarks Patient seen and evaluated today in follow-up for congestive heart failure new onset with acute exacerbation of systolic and diastolic heart failure Status post diuresis of 3-1/2 L. Doing better clinically but very frustrated on new diagnosis and possibility of further medical treatment and expressing a desire to likely leave AGAINST MEDICAL ADVICE I did advise this patient that this is a serious problem and one that can be life-threatening. He expressed understanding and will consider his options Objective Vitals Vital Signs Date Time Temp Pulse Resp B/P (MAP) Pulse Ox O2 Delivery O2 Flow Rate FiO2 03/12/18 08:00 90 03/12/18 07:30 96.3 91 20 165/92 (116) 91 03/12/18 04:00 98.3 90 20 158/80 (106) 94 03/12/18 00:00 96.9 93 21 174/84 (114) 90 03/11/18 21:00 73 03/11/18 20:00 96.0 92 20 159/81 (107) 91 03/11/18 16:00 97.3 91 20 166/89 (114) 97 03/11/18 12:00 96.8 75 20 145/87 (106) 96 I/O 03/11/18 03/11/18 03/11/18 03/12/18 03/12/18 03/12/18 07:00 15:00 23:00 07:00 15:00 23:00 Intake Total 240 ml 720 ml 240 ml Output Total 1475 ml 2050 ml Balance -1235 ml -1330 ml 240 ml Intake Oral 240 ml 720 ml 240 ml Output Urine Total 1475 ml 2050 ml # Voids 3 # Bowel Movements 2 1 Result Diagram: 03/11/18 0844 03/11/18 0844 Objective Remarks GENERAL: This is a well-nourished, well-developed patient, in no apparent distress. CARDIOVASCULAR: Regular rate and rhythm without murmurs, gallops, or rubs. RESPIRATORY: Clear to auscultation. Breath sounds equal bilaterally. No wheezes , rales, or rhonchi. GASTROINTESTINAL: Abdomen soft, non-tender, nondistended. Normal active bowel sounds MUSCULOSKELETAL: Extremities without clubbing, cyanosis, or edema. NEURO: Alert & Oriented x4 to person, place, time, situation. Moves all ext x4 A/P Problem List: (1) SOB (shortness of breath) ICD Code: R06.02 - Shortness of breath Plan: Likely multifactorial due to CHF exacerbation Patient likely has underlying COPD with a 41-rayd-[id number] history Continue with bronchodilators and nebulizers and a short course of steroids (2) HTN (hypertension) ICD Code: I10 - Essential (primary) hypertension Plan: Continue lisinopril (3) CHF, acute ICD Code: I50.9 - Heart failure, unspecified Status: Acute Plan: Echocardiogram does show severely reduced ejection fraction of 15-20%. Patient will need further follow-up with cardiology. No evidence of cor pulmonale Patient has expressed a possibility of leaving AGAINST MEDICAL ADVICE The meantime continue lisinopril, Lasix, aspirin (4) ARNOLDO (acute kidney injury) ICD Code: N17.9 - Acute kidney failure, unspecified Plan: Improved Continue MARGARITA inhibitor Renal ultrasound on remarkable Nimco Villalba MD Mar 12, 2018 11:59
--- NOTE | 2018-03-12 12:34 | MB ---
cc: Lynette Black MD DATE: 03/12/2018 REASON FOR CONSULTATION: Chronic heart failure and cardiomyopathy. HISTORY OF PRESENT ILLNESS: Mr. Hernandez is a 62-year-old man who presented with progressive shortness of breath. He indicates that he was seen recently for renal calculi and was on medications until they ran out 30 days later. It was after this, that he began to have progressive symptoms of shortness of breath that precipitated his emergency room visit. He specifically denies any chest pain or palpitations. He denies any prior cardiac history. PAST MEDICAL HISTORY: Significant for hepatitis, renal calculi and hypertension. OUTPATIENT MEDICATIONS: None. CURRENT MEDICATIONS: Per the record. SOCIAL HISTORY: The patient does have an [id number]-xnwl smoking history. FAMILY HISTORY: Unknown. ALLERGIES: NO KNOWN DRUG ALLERGIES. REVIEW OF SYSTEMS: Except as mentioned in the HPI, all 12 systems are negative. PHYSICAL EXAMINATION: VITAL SIGNS: 96.3, 91, 20, 165/92. GENERAL: He is a well-appearing man who is in no apparent distress. NECK: Free from JVD. LUNGS: Decreased, but clear to auscultation. CARDIOVASCULAR: He has a normal S1 and S2. No murmurs or rubs were appreciated. ABDOMEN: Soft. EXTREMITIES: The extremities do have a trace amount of edema. ECHOCARDIOGRAM: An echocardiogram from 03/11/2018 does show an EF of 15-20%. LAB VALUES: Lab values significant for a creatinine of 1.5 and serial troponins of 0.05/0.06/0.05 and a BNP of 3273, and TSH is 2.9. IMPRESSIONS: 1. Cardiomyopathy - At this point, it seems most likely secondary to a hypertensive cardiomyopathy. Obviously, we would like to pursue further evaluation with cardiac catheterization or at least stress testing. The patient declined any further workup. The patient will be medically optimized. We did discuss fluid and sodium restrictions, in addition to his medical management. The patient is aware that he is at a high risk for sudden because of this. 2. Elevated troponin - This is likely secondary to his heart failure. 3. Hypertension - I would add Coreg and titrate the lisinopril as appropriate. MD YOANDY Barrios/KEYA , 12:17 PM , 12:33 PM
[2018-03-12] MEDS ORDERED: CARV12.5 PO (12:42)
[2018-03-12] MEDS ORDERED: CARVEDILOL 6.25 MG TAB PO SCH (13:00)
== END 2018-03-12 15:00 | disposition home or self-care (01) ==
LOC: PHED 20:27 → PHEDA 22:59 → PH3A 23:33
PROVIDERS: ADMIT Hospitalist; ATTEND Hospitalist
DX: R06.02 Shortness of breath (principal); I11.0 Hypertensive heart disease with heart failure; I50.43 Acute on chronic combined systolic (congestive) and diastolic (congestive) heart failure; I42.9 Cardiomyopathy, unspecified; I49.3 Ventricular premature depolarization; R94.31 Abnormal electrocardiogram [ECG] [EKG]; J90 Pleural effusion, not elsewhere classified; N17.9 Acute kidney failure, unspecified; F17.200 Nicotine dependence, unspecified, uncomplicated
CPT/HCPCS: 71045; 76775; 80053; 81001; 82607; 83880; 84443; 84484; 85025; 93005; 93306; 93970; 94640; 94664; 96372; 96374; 96376; 99285; G0378; J1644; J1940; J7512

== ENCOUNTER 2018-10-16 05:48 | Inpatient (IN) ==
[2018-10-16] MEDS ORDERED: Heparin 10,000 UNITS/10 ML Vial (for IV use) IV.PUSH STA (06:06)
[2018-10-16] MEDS ORDERED: Morphine Inj 4 MG/ML Vial IV.PUSH ONE (06:08)
[2018-10-16] MEDS ORDERED: Sod Chloride 0.9% Inj 1,000 ML IV.SIG SCH (06:15)
[2018-10-16 06:22] LABS: Baso # (Auto) 0.1 th/mm3 (0.0-0.2); Baso % (Auto) 0.7 % (0.0-2.0); Eos # (Auto) 0.1 th/mm3 (0.0-0.4); Eos % (Auto) 1.2 % (0.0-4.0); Hematocrit 49.1 % (39.0-51.0); Hemoglobin 16.3 gm/dL (13.0-17.0); Lymph # (Auto) 3.4 th/mm3 (1.0-4.8); Lymph % (Auto) 32.8 % (9.0-44.0); Mean Corpuscular HGB Conc 33.3 % (32.0-36.0); Mean Corpuscular Hemoglobin 31.3 pg (27.0-34.0); Mean Corpuscular Volume 93.9 fL (80.0-100.0); Mean Platelet Volume 9.7 fL (7.0-11.0); Mono # (Auto) 1.1 th/mm3 (0.0-0.9); Mono % (Auto) 10.8 % (0.0-8.0); Neut # (Auto) 5.7 th/mm3 (1.8-7.7); Neut % (Auto) 54.5 % (16.0-70.0); Platelet Count 147 th/mm3 (150-450); Red Blood Count 5.22 mil/mm3 (4.50-5.90); Red Cell Distribution Width 12.6 % (11.6-17.2); White Blood Count 10.4 th/mm3 (4.0-11.0)
--- NOTE | 2018-10-16 06:22 | ED ---
HPI General Stated Complaint: pain runs up both arms to chest Time Seen by Provider: 10/16/18 05:59 Source: patient Mode of arrival: ambulatory Limitations: no limitations History of Present Illness HPI narrative: 63 yo M c/o chest pain, severe, retrosternal since approx 530AM today. Intermittent CP over past few days reported, severe at times, 2-5 minute intervals of pain, a few 40 minute episodes reported. + Radiation to hands bilaterally. + Exertional component. + HLD/HTN and tobaccoism. Pt denies family hx. Dr Black recommended cath in February 2018 however patient refused. Plan for optimization of medical management ensued. Echo showed EF of 20% then. Pt reports nasal congestion lately. Related Data Home Medications Medication Instructions Recorded Confirmed atorvastatin 40 mg PO DAILY 10/16/18 10/16/18 carvedilol 12.5 mg PO BID 10/16/18 10/16/18 furosemide 20 mg PO DAILY 10/16/18 10/16/18 lisinopril 40 mg PO DAILY 10/16/18 10/16/18 Allergies Allergy/AdvReac Type Severity Reaction Status Date / Time No Known Allergies Allergy Unverified 03/10/18 20:52 Review of Systems ROS Unobtainable ROS Unobtainable: unobtainable due to mental status ROS: all other systems reviewed are negative Constitutional Denies fever(s) and Denies increased appetite PMFSH Social History Social History Recent Travel [facility] within the Last 8 Weeks: No Recent Out of Country Travel within the Last 8 Weeks: No Exam Narrative Exam Narrative: GENERAL: 63 yo m, WNWD, moderate distress 2/2 pain SKIN: Minimal diaphoresis. Warm. HEAD: Atraumatic. Normocephalic. EYES: Pupils equal and round. No scleral icterus. No injection or drainage. ENT: No nasal bleeding or discharge. Mucous membranes pink and moist. NECK: Trachea midline. No JVD. CARDIOVASCULAR: Regular rate and rhythm. No murmur appreciated. RESPIRATORY: No accessory muscle use. Clear to auscultation. Breath sounds equal bilaterally. GASTROINTESTINAL: Abdomen soft, non-tender, nondistended. Hepatic and splenic margins not palpable. MUSCULOSKELETAL: No obvious deformities. No clubbing. No cyanosis. No edema. NEUROLOGICAL: Awake and alert. No obvious cranial nerve deficits. Motor grossly within normal limits. Normal speech. PSYCHIATRIC: Appropriate mood and affect; insight and judgment normal. Course Initial Documented Vital Signs Pulse Oximetry 100 10/16/18 06:08 Last Documented Vital Signs Pulse Oximetry 100 10/16/18 06:08 Critical Care Time Critical Care Time: Yes Total Critical Care Time: 31 Attestation: Aggregate critical care time was 31 minutes. Time to perform other separately billable procedures was not included in the critical care time. My time did not include minutes spent treating any other patients simultaneously or on activities that did not directly contribute to the patient's treatment. The services I provided to this patient were to treat and/or prevent clinically significant deterioration that could result in: cardiac arrest, heart failure, permanent disability I provided critical care services requiring my management, as noted below: Chart data review, documentation time, medication orders and management, vital sign assessments/reviewing monitor data, ordering and reviewing lab tests, ordering and interpreting/reviewing x-rays and diagnostic studies, care of the patient and discussion of the patient with the admitting physicians. Quality Measure Queries AMI Clinical Trial Participant: No Medical Decision Making MDM Narrative Medical decision making narrative: Pt arrives with chest pain and EKG showing ST elevations in V1-V3. d/w Dr Waylon Butler for cardiology. Heparin started. Pt verbalized agreement to undergo coronary catheterization today. Previously patient refused to undergo catheterization however states today he will consent. Heparin started PO aspirin given 4mg IV morphine given with reported improvement d/w Dr Butler for cardiology - stat transfer to [facility] clinical laboratory technologist pt update with plan and verbalized agreement to move forward at 622AM. Medical Screen Exam Complete: Yes Emergency Medical Condition: Yes Differential Diagnosis Differential Diagnosis: NSTEMI, unstable angina, coronary vasospasm, PE, PTX, aortic dissection, pericarditis, myocarditis, endocarditis, PNA, esophageal disease, aneurysm, musculoskeletal etiologies, anxiety, cocaine/sympathomimetic abuse ECG Data EKG Prior to Arrival: No Attestation: I personally reviewed and interpreted this ECG as follows: (Sinus, ST elevations in V2-V3) Discharge Plan Discharge Disposition Patient Disposition: 30 Still Patient Physicians Team ED Provider: Wero Butler Primary Care Provider: Primary Care Lenora Hansen Attending Provider: Jeferson Butler Status ED Status: Admitted Patient
[2018-10-16] MEDS ORDERED: Heparin/NS PF Inj 1,500 ML ONE (06:24)
[2018-10-16] MEDS ORDERED: Heparin 10,000 UNITS/10 ML Vial (for IV use) ONE (06:25)
[2018-10-16 06:27] LABS: RBC Morphology Normal (Normal)
--- NOTE | 2018-10-16 06:27 | XR ---
EXAM DATE: 10/16/2018 6:17 AM EST AGE/SEX: 63 years / Male INDICATIONS: Stemi alert. CLINICAL DATA: This is the patient's initial encounter. Patient reports that signs and symptoms have been present for 1 day and indicates a pain score of 8/10. MEDICAL/SURGICAL HISTORY: Hepatitis C. None. COMPARISON: No prior exams available for comparison. FINDINGS: A single AP view of the chest demonstrates the lungs to be symmetrically aerated without evidence of mass, infiltrate or effusion. The cardiomediastinal contours are unremarkable. Osseous structures a re intact. CONCLUSION: No active disease. Electronically signed by: Ozzy Patel MD 10/16/2018 6:26 AM EST
[2018-10-16 06:28] LABS: Platelet Estimate Normal (Normal); Platelet Morphology Normal (Normal)
[2018-10-16 06:31] LABS: Calcium 9.2 mg/dL (8.5-10.1)
[2018-10-16 06:32] LABS: Magnesium 2.3 mg/dL (1.5-2.5)
[2018-10-16 06:33] LABS: Activated Partial Thrombo Time 30.7 sec (23.4-31.7)
[2018-10-16 06:39] LABS: Creatine Kinase 164 U/L (39-308)
[2018-10-16 06:40] LABS: Troponin I 0.03 ng/mL (0.02-0.05)
[2018-10-16] MEDS ORDERED: Lidocaine PF 1% Inj 30 ML Vial ONE (06:44)
[2018-10-16 06:51] LABS: Creatine Kinase MB 2.3 ng/mL (0.5-3.6)
[2018-10-16] MEDS ORDERED: fentaNYL Citrate Inj 100 MCG/2 ML Ampul ONE (07:03)
[2018-10-16 07:37] LABS: Calcium 8.8 mg/dL (8.5-10.1); Carbon Dioxide 21.8 meq/L (21.0-32.0); Potassium 4.4 meq/L (3.5-5.1)
--- NOTE | 2018-10-16 08:00 | CATHPROC ---
[employer] HIS Report Study Information Study Number Admission Scheduled Start Study Start [id number] Oct 16 2018 6:10AM 10/16/2018 Oct 16 2018 6:43AM [facility] Cardiac Catheterization Admit Source Facility Department Emergency department [facility] - Intern Product Marketing Manager Physician and Clinical Staff Initial Jeferson Cheng Teaseler Alisia Moffett RN Recorder Marcela Santana,RT(R) Scrub Josee Montes ,RT(R) Procedures Performed Procedure Location (Site) Vessel Name Coronary Angiograms LCA Left Coronary Coronary Angiograms RCA Right Coronary L Heart Cath Wire insertion Fem Art (right) Femoral Art Equipment Time Feather Sawyer Description Size Mfg Part Number Used/Scraped TRANSDUCER, TRUWAVE [id number] 06:45 DE LA ROSA CLARK * Used [id number] *[id number] INTRODUCER SET, 07:16 [employer] FR 5 [id number] *[id number] Used MICROPUNCTURE STIFF [id number] *[id number] 06:45 Precog BLANKET,WARM AIR CCL * Used *[id number] 06:45 Precog PACK, CCL CUSTOM * Used *[id number] 07:06 [employer] JL 4.0 DXTERITY CATHETER FR 6 [id number] Used 07:06 [employer] JL 4.0 DXTERITY CATHETER FR 6 [id number] Used [id number] 06:45 [employer] MEDICAL SHEATH, FR6.5 PRELUDE 11CM FR 6.5 [id number] Used *[id number] 06:45 [employer] MEDICAL WIRE, 3MMJ .035 180CM 180CM Used *[id number] 06:45 NAMIC MANIFOLD, 4 PORT * Used *[id number] 06:45 NYCOMED OMNIPAQUE, 350 MG, 150ML 150ML [id number] Used Equipment Model, Serial, Lot Number and Expiration Data Description Model Number Serial Number Lot Number Expiration Da te JL 4.0 DXTERITY CATHETER [id number] 05-24-2021 JL 4.0 DXTERITY CATHETER [id number] 05-24-2021 History: Current Medications Medication Dosage/Unit Route Frequency Last Date/Time Taken LISINOPRIL CARVEDILOL Statins (any) History: Allergies Allergy Reaction No Known Allergies History: Risk Factors Family History of Hypertension Dyslipidemia Previous ND Previous Heart Failure Premature CAD No No No No Yes Prior Valve Prior PCI Prior CABG Surgery No No No Cerebrovascular Peripheral Artery Chronic Lung On Dialysis Diabetes Disease Disease Disease No No No No No History: Symptoms/Diagnosis Selection Items Chest pain History: Stress Tests Stress or Imaging Studies Performed No History: Other Current Smoker Method Packs a Day Years Used Pack Years Yes Cigarettes 1 50 50 Labs Hgb (g/dl) Hct (%) RBC (MIL/MM3) WBC (l/cumm) Platelets (thousands) 11.60-17.00 35.00-51.00 4.00-5.90 4.00-11.00 150.00-450.00 16.3 49.1 5.2 10.4 147 Glucose (mg/dl) BUN (mg/dl) Creatinine (mg/dl) BUN:Creatinine (1:x) 74.00-106.00 7.00-18.00 0.50-1.30 10.00-20.00 136 18 1.3 13.8 Na (meq/l) K (meq/l) Cl (meq/l) CO2 (mmol/L) 136.00-145.00 3.50-5.10 98.00-107.00 21.00-32.00 140 4.4 111 21.8 INR (PTT:PT) 0.90-1.10 1 Troponin I (ng/ml) CPK-MB (ng/ML) 0.02-0.05 0.50-3.60 0.03 Not Drawn Medication Medication Total Dose (Bolus/Oral) Medication Total Dosage/Unit 1% XYLOCAINE 20 mL FENTANYL 37.5 mcg OXYGEN 2 l/min VERSED 1 mg Medications (Bolus/Oral) Medication Time Given Dosage/Unit Administered By Reason VERSED 10/16/2018 7:04:46 AM 0.5 mg Alisia Moffett 0.5 mg VERSED given in lab by Alisia Moffett, RN via Peripheral IV. 1% XYLOCAINE 10/16/2018 7:05:04 AM 20 mL Jeferson Butler 20 mL 1% XYLOCAINE given in lab by Jeferson Butler in Right Groin via Subcutaneous. FENTANYL 10/16/2018 7:05:51 AM 12.5 mcg Alisia Moffett 12.5 mcg FENTANYL given in lab by Alisia Moffett, RN via Peripheral IV. VERSED 10/16/2018 7:18:26 AM 0.5 mg Alisia Moffett 0.5 mg VERSED given in lab by Alisia Moffett RN via Peripheral IV. Ordered by Jeferson Butler FENTANYL 10/16/2018 7:19:45 AM 25 mcg Alisia Moffett 25 mcg FENTANYL given in lab by Alisia Moffett RN via Peripheral IV. Ordered by Jeferson Butler OXYGEN 10/16/2018 7:26:17 AM 2 l/min Alisia Moffett 2 l/min OXYGEN given in lab by Alisia Moffett RN via Nasal. Ordered by Jeferson Butler Medication (Drip) Medication Time Given Dosage/Unit Concentration/Unit Diluent (ml) Solution IV Solutions 10/16/2018 6:55:23 AM 0 mL (IV) 500 NaCl .9 IV Solutions given in lab by Alisia Moffett RN in Left Antecubital via Peripheral IV. Pump/Drip Fl ow = 20 ml/hr using NaCl .9. Initial Case Assessment Cardiovascular HR Rhythm NIBP Chest Pain 92 reg 155/78 0 Edema Present Skin color Skin None Normal Warm Circulatory - Right Pulses Dorsalis Pedis Femoral 1 2 Scale (0,1,2,3,4,d) Circulatory - Left Pulses Dorsalis Pedis Femoral 1 2 Scale (0,1,2,3,4,d) Circulatory - Lower Extremities Color Lower Right Color Lower Left Normal Normal Neurological State Oriented to time-place- Alert Moves all extremities person Respiration - General Respiration Rate SpO2 (%) O2 (lpm) (B/min) 21 97 2 Final Case Assessment Cardiovascular HR Rhythm NIBP Chest Pain 75 reg 128/66 0 Edema Present Skin color Skin None Normal Warm Circulatory - Right Pulses Dorsalis Pedis Femoral 1 2 Scale (0,1,2,3,4,d) Circulatory - Left Pulses Dorsalis Pedis Femoral 1 2 Scale (0,1,2,3,4,d) Circulatory - Lower Extremities Color Lower Right Color Lower Left Normal Normal Neurological State Oriented to time-place- Alert Moves all extremities person Respiration - General Respiration Rate SpO2 (%) O2 (lpm) (B/min) 7 97 2 Chronological Log Time Study Chronological Log 6:17:55 Emergency Room notified that Intern Product Marketing Manager is ready. 6:47:52 Patient arrived via Bed. 6:47:55 Patient Name, D.O.B, / Armband Verified By R.N. 6:47:56 Consent signed by the physician and the patient and verified by the Intern Product Marketing Manager staff. 6:47:56 Pre-op and post- op instructions given; patient acknowledges understanding of instructions. 6:47:57 Verbal Stimulation=2 Physical Stimulation=2 Airway=2 Respiration=2 TOTAL=8. (0=absent, 1=li mited, 2=present) 6:48:02 Patient has been NPO for More than 6Hrs. 6:48:03 Skin Breakdown- 6:48:09 A # 20 IV was noted in the Antecubital (left). Grade = 0 6:50:37 A # 20 IV was noted in the Forearm (left). Grade = 0 Vitals capture started with the following parameters, Patient=Adult, Interval=5 min, Initial Pr icrpjn=729 mmHg, 6:53:40 Deflation Rate=5 mmHg, Cuff placed on Left Arm 6:53:44 Reference ECG taken 6:54:25 HR=89 bpm, NJGV=587/78 mmhg, SpO2=97.0 %, Pain=5, Yoko=10, Jaquez=2 IV Solutions given in lab by Alisia Moffett RN in Left Antecubital via Peripheral IV. Pump/Dr ip Flow = 20 ml/hr 6:55:23 using NaCl .9. 6:55:42 History and physical on the chart or being dictated. Assessment: Initial Case, HR=92 BPM, Rhythm=reg, WPKB=783/78 mmhg, Chest Pain=0, Edema=None, Col or=Normal, Skin = Warm Right Pulses: Chaitanya Ped=1, Femoral=2 Left Pulses: Chaitanya Ped=1, Femoral=2 6:55:43 Lower Right Extremities: Color=Normal Lower Left Extremities: Color=Normal Neurological: State=Alert, Ox3, URIOSTEGUI Respiration: Resp=21 B/min, SpO2=97 %, O2=2 lpm 6:56:46 Bilateral groins prepped with 2% chlorhexidine, and draped after a 3 minute waiting time. 6:58:10 Pressure channel 1 zeroed. 6:59:17 MD arrived. 6:59:22 HR=82 bpm, CMNW=167/78 mmhg, SpO2=97.0 %, Resp=24 B/min, Pain=0, Yoko=8, Jaquez=2 7:04:19 HR=84 bpm, WKJA=618/80 mmhg, SpO2=96.0 %, Resp=10 B/min, Pain=0, Yoko=8, Jaquez=2 Time Out. Correct patient, correct procedure, correct physician, labs, allergies, and equipment verified with laborer shaft sinking 7:04:26 team present. Fire risk assesment completed (see hard stop sheet for coding). Time Out Concu rred by MD and individual staff in procedure. 7:04:46 0.5 mg VERSED given in lab by Alisia Moffett, RN via Peripheral IV. 7:04:55 Case Start 7:04:57 Verbal Stimulation=2 Physical Stimulation=2 Airway=2 Respiration=2 TOTAL=8. (0=absent, 1=andrade ited, 2=present) 7:05:04 20 mL 1% XYLOCAINE given in lab by Jeferson Butler in Right Groin via Subcutaneous. 7:05:51 12.5 mcg FENTANYL given in lab by Alisia Moffett, RN via Peripheral IV. 7:10:01 HR=88 bpm, NIPR=951/77 mmhg, SpO2=96.0 %, Resp=20 B/min, Pain=0, Yoko=10, Jaquez=2 7:14:16 Access site was Right Femoral Artery. with MP kit 7:14:19 HR=81 bpm, TRGN=131/68 mmhg, SpO2=96.0 %, Resp=17 B/min, Pain=0, Yoko=8, Jaquez=2 7:14:28 A wire was inserted via Fem Art (right). 7:14:31 A SHEATH, FR6.5 PRELUDE 11CM FR 6.5 was advanced into the Fem Art (right) using the Percutan eous technique. 7:15:07 labs drawn for BMP 7:16:30 An injection in the Fem Art (right) was made through the SHEATH, FR6.5 PRELUDE 11CM FR 6.5. A JR 4.0 INFINITI CATHETER FR 5 was advanced over a wire. OMNIPAQUE, 350 MG, 150ML 150ML was use d for 7:16:49 injections. Recorded Pressure: LV, HR=79, Condition=Condition 1 7:17:57 (Left Ventricle) LV 136/3/10 Recorded Pressure: LV, Ao, HR=75, Condition=Condition 1 7:18:11 (Left Ventricle) LV 134/1/10, (Aorta) Ao 130/61/87 7:18:26 0.5 mg VERSED given in lab by Alisia Moffett RN via Peripheral IV. Ordered by Waylon Butler Recorded Pressure: Ao, HR=78, Condition=Condition 1 7:18:27 (Aorta) Ao 124/60/84 7:18:46 The RCA was injected and visualized at various angles. OMNIPAQUE, 350 MG, 150ML 150ML used. After removing the current catheter a JL 4.0 DXTERITY CATHETER FR 6 was advanced over a WIRE, 3M MJ .035 180CM 7:19:10 180CM. 7:19:45 25 mcg FENTANYL given in lab by Alisia Moffett RN via Peripheral IV. Ordered by Jeferson Butler 7:19:51 HR=84 bpm, VWHP=959/71 mmhg, SpO2=96.0 %, Resp=15 B/min, Pain=0, Yoko=10, Jaquez=2 7:22:22 The LCA was injected and visualized at various angles. OMNIPAQUE, 350 MG, 150ML 150ML used. 7:24:23 HR=76 bpm, VXFL=131/69 mmhg, SpO2=90.0 %, Resp=12 B/min, Pain=0, Yoko=10, Jaquez=2 7:26:17 2 l/min OXYGEN given in lab by Alisia Moffett RN via Nasal. Ordered by Jeferson Butler 7:29:22 HR=75 bpm, NYGQ=726/66 mmhg, SpO2=94.0 %, Resp=14 B/min, Pain=0, Yoko=10, Jaquez=2 7:33:17 Case End (Physician broke scrub) Assessment: Final Case, HR=75 BPM, Rhythm=reg, YKQW=051/66 mmhg, Chest Pain=0, Edema=None, Col or=Normal, Skin = Warm Right Pulses: Chaitanya Ped=1, Femoral=2 Left Pulses: Chaitanya Ped=1, Femoral=2 7:33:23 Lower Right Extremities: Color=Normal Lower Left Extremities: Color=Normal Neurological: State=Alert, Ox3, URIOSTEGUI Respiration: Resp=7 B/min, SpO2=97 %, O2=2 lpm 7:33:56 Catheter(s) removed without difficulty 7:34:17 Activated Clotting Time Drawn 7:34:21 HR=77 bpm, MSPO=502/70 mmhg, SpO2=96.0 %, Resp=8 B/min, Pain=0, Yoko=10, Jaquez=2 7:35:14 ACT (Normal Range 90-180) = 174 7:35:26 Sheath removed; pressure applied to access site. german 7:35:45 Sterile dressing applied to site 7:35:46 No case complications noted. 7:35:47 Cine recording checked. 7:35:48 Bedside Report will be given. 7:35:52 A Left Heart Cath was performed. 7:35:55 Clinical correlaton risk stratification. 7:39:20 HR=77 bpm, KHLO=100/67 mmhg, SpO2=97.0 %, Resp=22 B/min, Pain=0, Yoko=10, Jaquez=2 7:44:22 HR=72 bpm, HIVY=350/65 mmhg, SpO2=97.0 %, Resp=14 B/min, Pain=0, Yoko=10, Jaquez=2 7:49:25 HR=73 bpm, YODI=468/68 mmhg, SpO2=97.0 %, Resp=13 B/min, Pain=0, Yoko=10, Jaquez=2 7:54:24 HR=72 bpm, JKTM=303/68 mmhg, SpO2=95.0 %, Resp=15 B/min, Pain=0, Yoko=10, Jaquez=2 7:55:00 hemastasis acheived End Study - Contrast Media Used In Study Contrast Total Opened (mL) Total Used (mL) Total Wasted (mL) Omnipaque 350 80 80 0 End Study - Maximum Contrast Load Max Contrast Load (mL) 356.1 End Study - Radiation Exposure Fluoro Time (minutes) 2.6 End Study - Sheaths Sheaths Pulled By Sheath Hold Time (min) Josee Montes End Study - Patient Disposition Complications Transferred To Interventional Outcome No Regular Bed No attempt made
--- NOTE | 2018-10-16 08:39 | MA ---
cc: Jeferson Butler DO DATE: 10/16/2018 PROCEDURES: Left heart catheterization, coronary angiogram, ultrasound-guided access, moderate sedation 30 minutes. PREPROCEDURE DIAGNOSES: EKG changes concerning for possible ST elevation myocardial infarction, chest pain concerning for coronary insufficiency. POSTPROCEDURE DIAGNOSES: Infarction of the anterior and inferior wall with a chronic total occlusions, ischemic cardiomyopathy. CONTRAST USED: 80 mL. FLUOROSCOPY: 2.6 minutes. MODERATE SEDATION: 30 minutes. FRAILTY SCORE: 4. ESTIMATED BLOOD LOSS: 10 mL. PROCEDURAL SUMMARY: Capo Hernandez is a 63-year-old male who presented to [facility] Emergency Room this morning due to chest pain. He states that he has had chest pain on and off for the past week or so. He was found to have previously had an ejection fraction of 20% and recommended an ischemic evaluation in February, but refused at that time. On arrival, an EKG was done and there was concern for some minimal ST elevation, although not much different from his previous EKG in February. He was sent to the electroplating laborer due to concern for ST elevations. Upon leaving the Emergency Room in [place], his chest pain was now gone. On arrival here, he continued to not have chest pain. I discussed with him the need for cardiac catheterization due to his previous cardiomyopathy including risks, benefits, and alternatives; and he agreed to proceed with the case. He was brought to the lab and prepped in the usual sterile fashion. The right femoral artery was accessed using a modified Seldinger technique with ultrasound guidance and placement of a 6-Italian sheath. This was easily aspirated and flushed. A JR4 was advanced over a J-wire to the ascending aorta and across the aortic valve for measurement of left ventricular pressure. This was pulled back across the aortic valve showing no significant gradient of aortic stenosis. JR4 was used for selective angiography of the right coronary artery system. This was exchanged out for a JL4, which was used for selective angiography of the left coronary artery system. JL4 was removed over a J wire. ACT was checked and was 174 and so sheath was pulled and pressure held for hemostasis. The patient left the electroplating laborer cardiovascularly stable. FINDINGS: LEFT MAIN: Moderate-sized vessel, which distally tapers to 70%-80%. It trifurcates into an LAD, ramus, and circumflex. LAD: There is 80% disease at the ostial portion with 100% in the mid portion. There are fjlx-fz-gkoe collaterals which supply the mid and distal LAD as well as the diagonal. RAMUS: Moderate-sized vessel, which has a 60% lesion of the proximal portion and diffusely 30% disease throughout. LEFT CIRCUMFLEX: Moderate-sized vessel with 30% disease throughout. It supplies 2 obtuse marginals with no significant disease. RCA: It was 100% occluded in the mid portion with sfvlz-xv-remfg and ktvr-iv-vjhks collaterals. LVEDP: 10. IMPRESSION: 1. Possible ST elevation myocardial infarction, more likely EKG changes consistent with previous anterior septal myocardial infarction. 2. Multivessel coronary artery disease with 100% occlusion of the right coronary artery as well as the left anterior descending and significant left main disease. 3. Ischemic cardiomyopathy with a previous ejection fraction of 20%. RECOMMENDATIONS: 1. Capo Hernandez presented as a STEMI alert, but ultimately his EKG looks similar to previous, more likely that this is an old anterior septal myocardial infarction 2. During his cardiac catheterization, he was found to have multivessel disease with occlusions of the RCA and LAD, which appeared to be chronic in nature. Upon arrival to the electroplating laborer, he was no longer having chest pain, which would not be consistent with an acute STEMI presentation. 3. This is probably what led to his ischemic cardiomyopathy. 4. He will be admitted and seen by CT surgery for further consideration of coronary artery bypass grafting. 5. We will plan on placing him on a heparin drip 6 hours after sheath was pulled. 6. We will recheck an echo to further evaluate his overall ejection fraction. Thank you for allowing me to see Capo Hernandez. If there are any questions, please do not hesitate to call. DO YAQUELIN Carroll/marcio , 08:05 AM , 08:15 AM
[2018-10-16] MEDS ORDERED: Iohexol 350 MG/ML 100 ML Vial (for Cath Lab) IVCONTRAST ONE (09:20)
[2018-10-16] MEDS: Furosemide 20 MG Tablet PO SCH (09:25)
[2018-10-16] MEDS: Carvedilol 12.5 MG Tablet PO SCH ×2 (09:25→21:18)
--- NOTE | 2018-10-16 10:14 | MB ---
cc: LukeJeferson Boo KELSEY DATE: 10/16/2018 REASON FOR CONSULTATION: Possible STEMI alert. HISTORY OF PRESENT ILLNESS: The patient is a 63-year-old male who presented to [facility] in [place] due to chest pain. He states that around 5:30 this morning, he started having retrosternal chest pain and decided that he should come in as it was not going away. He has had intermittent chest pain over the past few days to a week that lasted 2-5 minutes. He did have a few episodes which were longer than this in the minute range. When he gets the pain it radiates to both his hands bilaterally. He seems to get it also with exertion. He previously was here in February 2018 and was found to have a lowered ejection fraction and because of this, he was recommended an ischemic evaluation, but at that time he said he was worried about what they would find and so he refused and he was treated medically. On arrival, an EKG was done and there was concern for ST elevations and so I was called emergently. Because of his symptoms and questionable EKG changes, he was transferred to the laboratory asst emergently. He states that upon leaving the emergency room, his chest pain was 0. On arrival, he continued to have no chest pain. PAST MEDICAL HISTORY: 1. Cardiomyopathy, presumed to be ischemic with an ejection fraction of 20%. 2. Hypertension. 3. Hyperlipidemia. 4. History of hepatitis. 5. Tobacco abuse. PAST SURGICAL HISTORY: Denies. ALLERGIES: NO KNOWN DRUG ALLERGIES. MEDICATIONS: 1. Coreg 12.5 mg b.i.d. 2. Lisinopril 40 mg daily. 3. Lasix 20 mg daily. 4. Lipitor 40 mg daily. SOCIAL HISTORY: The patient has an 80 year pack history. He currently smokes half a pack of cigarettes a day. He denies alcohol or drug abuse. FAMILY HISTORY: Denies sudden cardiac within the family. REVIEW OF SYSTEMS: Fourteen systems were reviewed including osteopathic. Pertinent positives and negatives above, otherwise negative. PHYSICAL EXAMINATION: VITAL SIGNS: Temperature 98.0, heart rate 65, blood pressure 169/78, respirations 18, pulse oximetry 100% on 4 liters nasal cannula. GENERAL: The patient appears older than stated age. Alert, awake and oriented x3, in no acute distress. HEENT: Extraocular muscles intact. Mucous membranes moist. NECK: Supple. No JVD at 45 degrees. No carotid bruits heard bilaterally. Carotid upstroke is brisk in nature. HEART: Regular rate and rhythm. Positive first and second heart sounds with no noted murmurs, gallops or rubs. LUNGS: Have decreased breath sounds bilaterally, but no overt wheezes, rales or rhonchi. ABDOMEN: Soft, nontender, nondistended. No organomegaly noted. EXTREMITIES: Show no clubbing, cyanosis or edema. femoral pulses are 1/4. NEUROLOGIC: No focal deficits. SKIN: Warm, dry and intact. OSTEOPATHIC: No kyphoscoliosis, lordosis or paraspinal tender points. LABORATORY DATA: Hemoglobin 16.3, hematocrit 49.1, platelets 147. Potassium 4.4, BUN 18, creatinine 1.31. Troponin 0.03. Electrocardiogram (10/16/2018 at 0600) sinus rhythm, anterior septal myocardial infarction with minimal ST elevation, ST-T wave changes laterally, possible ischemia, probable old inferior infarct. IMPRESSION: 1. ST-T wave changes concerning for ischemia. Possible STEMI alert. 2. Cardiomyopathy with an ejection fraction of 20%, presumed to be ischemic. 3. Hypertension. 4. Hyperlipidemia. 5. Tobacco abuse. RECOMMENDATIONS: 1. The patient presented with chest pain on and off over the past week or so. 2. His EKG was considered a STEMI alert, although review of old EKG shows that he has had Q-waves anteriorly with not much change from his previous in February. He also has Q-waves inferiorly, concerning for old myocardial infarctions of the anteroseptal and inferior wall. 3. Upon arrival here, he is no longer having chest pain. 4. I discussed with him and ultimately I believe that he needs to undergo a cardiac catheterization to rule out significant disease due to his previous cardiomyopathy, but also his episode this morning. Risks, benefits and alternatives were discussed with him and he agrees to proceed with the cardiac catheterization. 5. Further recommendations. 6. I spoke to him for greater than 3 minutes about tobacco cessation. 7. Further recommendations will be made based on coronary visualization. Thank you for allowing me to see the patient. If there are any questions, please do not hesitate to call. Jeferson Butler, DO OSULLIVANP/ar/ll , 07:58 AM , 08:10 AM
[2018-10-16] MEDS ORDERED: Insulin Regular (For Infusion) 100 UNIT in Sodium Chlor 0.9% Inj 99 ML IV.CONT PRN (10:31)
[2018-10-16] MEDS ORDERED: Dextrose 50% in Water 50 ML Vial IV.PUSH PRN (10:31)
[2018-10-16] MEDS ORDERED: Sodium Chloride 0.9% Irr Bot 500 ML, ceFAZolin Inj 500 MG IRRIGATION SCH ×2 (10:45)
[2018-10-16] MEDS ORDERED: Chlorhexidine 4% Topical 120 APPLIC/120 ML Bottle TOPICAL SCH (10:45)
[2018-10-16] MEDS ORDERED: Sodium Chlor 0.9% Inj 77.5 ML, Papaverine Inj 60 MG, Nitroglycerin Inj 100 MCG, dilTIAZ... IRRIGATION SCH ×3 (10:45)
[2018-10-16] MEDS ORDERED: ceFAZolin Inj 2,000 MG in Sodium Chlor 0.9% Inj 80 ML IV.SIG SCH (11:00)
[2018-10-16 12:34] LABS: Albumin 3.6 g/dL (3.4-5.0)
[2018-10-16 12:36] LABS: Total Protein 7.5 g/dL (6.4-8.2)
--- NOTE | 2018-10-16 13:52 | P.PNCV ---
- Note Subjective/Hospital Course: pt seen and evaluated, full consult to follow sts data discussed with pt RISK SCORES Procedure: Isolated CAB CALCULATE Risk of Mortality: 3.552% Renal Failure: 2.572% Permanent Stroke: 1.295% Prolonged Ventilation: 14.742% DSW Infection: 0.274% Reoperation: 2.856% Morbidity or Mortality: 19.336% Short Length of Stay: 29.669% Long Length of Stay: 11.579% Objective: Vital Signs - 24 hr 10/16/18 06:08 10/16/18 06:11 10/16/18 06:23 Temperature 98.0 F Pulse Rate Respiratory Rate Blood Pressure 192/92 H Pulse Oximetry 100 100 10/16/18 06:27 10/16/18 08:30 10/16/18 09:00 Temperature Pulse Rate 65 67 66 Respiratory Rate 18 Blood Pressure 169/78 H Pulse Oximetry 10/16/18 10:00 10/16/18 11:00 Temperature Pulse Rate 64 65 Respiratory Rate Blood Pressure Pulse Oximetry Labs: Laboratory Results - last 12 hr 10/16/18 10/16/18 10/16/18 06:09 06:09 06:09 CBC w Diff Auto diff final WBC 10.4 RBC 5.22 Hgb 16.3 Hct 49.1 MCV 93.9 MCH 31.3 MCHC 33.3 RDW 12.6 Plt Count 147 L MPV 9.7 Neut % (Auto) 54.5 Lymph % (Auto) 32.8 Glascock % (Auto) 10.8 H Eos % (Auto) 1.2 Baso % (Auto) 0.7 Neut # (Auto) 5.7 Lymph # (Auto) 3.4 Glascock # (Auto) 1.1 H Eos # (Auto) 0.1 Baso # (Auto) 0.1 WBC Differential . Diff Scan Auto diff confirmed Differential Comment . Platelet Estimate Normal Platelet Morphology Normal RBC Morphology Normal PT 10.0 INR 1.0 APTT 30.7 Sodium Potassium Chloride Carbon Dioxide Anion Gap BUN Creatinine Estimated GFR Random Glucose Calcium 9.2 Magnesium 2.3 Total Bilirubin Direct Bilirubin Indirect Bilirubin AST ALT Alkaline Phosphatase Total Creatine Kinase 164 CK-MB (CK-2) 2.3 Troponin I 0.03 B-Natriuretic Peptide Total Protein Albumin 10/16/18 10/16/18 10/16/18 06:09 07:20 07:20 CBC w Diff WBC RBC Hgb Hct MCV MCH MCHC RDW Plt Count MPV Neut % (Auto) Lymph % (Auto) Glascock % (Auto) Eos % (Auto) Baso % (Auto) Neut # (Auto) Lymph # (Auto) Glascock # (Auto) Eos # (Auto) Baso # (Auto) WBC Differential Diff Scan Differential Comment Platelet Estimate Platelet Morphology RBC Morphology PT INR APTT Sodium 140 Potassium 4.4 Chloride 111 H Carbon Dioxide 21.8 Anion Gap 7 BUN 18 Creatinine 1.31 H Estimated GFR 55 L Random Glucose 136 H Calcium 8.8 Magnesium Total Bilirubin 0.6 Direct Bilirubin 0.2 Indirect Bilirubin 0.4 AST 30 ALT 41 Alkaline Phosphatase 73 Total Creatine Kinase CK-MB (CK-2) Troponin I B-Natriuretic Peptide 181 H Total Protein 7.5 Albumin 3.6 Result Diagrams: 10/16/18 06:09 10/16/18 07:20
[2018-10-16] MEDS: Heparin Drip 25,000 UNIT/250 ML BAG IV.CONT PRN (15:07)
--- NOTE | 2018-10-16 15:23 | MB ---
cc: Brenda Williamson MD DATE: 10/16/2018 HISTORY OF PRESENT ILLNESS: A 63-year-old male transferred from [facility] secondary to chest pain. Chest pain apparently starts in his hands, moves of his arms and then comes to retrosternal chest pain. He has had this chest pain off and on for the past few days to a week, which last 2-5 minutes. More noticeable with exertion, relieved with rest. He was previously seen in 02/2018 and was found to have a very low ejection fraction of 20%. He was recommended an ischemic workup, but then he was concerned about insurance, which he is now under Medicaid plan. There was initially concern for ST elevation; however, STEMI was ruled out. He had negative troponins. He underwent cardiac catheterization by Dr. Butler today, which showed ejection fraction of 20% by his prior echo 03/2018, left main disease of 80%, the proximal LAD 70%, the mid distal LAD 100%, the diagonal 100%, the RCA 100%, the ramus 60%. We were consulted to evaluate for coronary artery bypass graft. Repeat echo is also pending. PAST MEDICAL HISTORY: Includes ischemic cardiomyopathy, hypertension, hyperlipidemia, history of hepatitis, which was apparently treated with medication, tobacco abuse. The patient has been smoking since the age of 16. Now, he is down to half a pack. He was up to a pack per day. The patient has chronic kidney disease with GFR 55. SOCIAL HISTORY: No alcohol. No illicit drugs. He is with 3 children, unemployed. FAMILY HISTORY: Denies any sudden cardiac within the family. ALLERGIES: NO KNOWN ALLERGIES. HOME MEDICATIONS: 1. Coreg 12.5 b.i.d. 2. Lisinopril 40 p.o. daily. 3. Lasix 20 mg daily. 4. Lipitor 40 daily. REVIEW OF SYSTEMS: GENERAL: No night sweats, fever, heat and cold intolerance. SKIN: No psoriasis, itching or hives. HEENT: No blurred vision, hearing loss. RESPIRATORY: Positive for shortness of breath, shortness of breath for the past few weeks. CARDIOVASCULAR: As above in the HPI. GASTROINTESTINAL: No diarrhea or vomiting. GENITOURINARY: No burning, frequency, urgency. CENTRAL NERVOUS SYSTEM: No history of TIA, CVA or seizure disorder. ENDOCRINOLOGY: No history of diabetes or hypothyroidism. PHYSICAL EXAMINATION: VITAL SIGNS: Blood pressure 160/78, heart rate of 65. GENERAL: Awake, alert, in no acute distress. HEENT: Head is normocephalic, atraumatic. Pupils equal and reactive. Oral mucosa pink, moist. He has no teeth. His dentures fit him improperly. HEART: Heart sounds S1, S2. Regular rate and rhythm. No audible rubs, murmurs, or gallops. LUNGS: Clear to auscultation. No wheezes, rales or rhonchi. ABDOMEN: Soft, nontender. No masses or organomegaly. EXTREMITIES: No cyanosis, clubbing, or edema. LABORATORY DATA: Shows hemoglobin 16, hematocrit 49, white cell count of 10.4, platelet count of 147. Sodium 140, potassium 4.4, BUN of 18 with a creatinine of 1.31. HbA1c is pending. BNP on admission was 181. AST 30, ALT 41, total bilirubin 0.6. INR 1.0. Radiological exams and PFTs are still pending. His initial chest x-ray showed no active disease. His EKG showed sinus rhythm with some moderate T-wave abnormalities, some lateral ischemia, ST depression. IMPRESSION: This is a gentleman with an unstable angina with a history of some prior ischemic cardiomyopathy with ejection fraction of 20%. Underwent cardiac catheterization and has multivessel disease including 80% left main disease. He has a repeat 2-D echo, but he did have an STS risk score calculated at 3.5. He has further testing that is planned including carotid ultrasound, vein mapping, pulmonary function tests. The procedures, alternatives, and risks have been discussed with the patient. The patient is agreeable to proceed. The films have been reviewed by Dr. Brenda Williamson. Planning will be for surgery on Monday, coronary artery bypass graft x 4-5. Dictated by Marii Sanchez APRN I personally interviewed and examined this patient with the FINANCIAL SECRETARY on 10/16/18. I spent ~30 minutes discussing CABG and risks /benefits. He agrees to proceed. MD MARIAELENA Bailey/aby , 02:00 PM , 02:12 PM DEBI
--- NOTE | 2018-10-16 15:47 | US ---
EXAM DATE: 10/16/2018 3:44 PM EST AGE/SEX: 63 years / Male INDICATIONS: Pre-op cardiac surgery. CLINICAL DATA: This is the patient's initial encounter. Patient reports that signs and symptoms have been present for 1 day and indicates a pain score of 0/10. MEDICAL/SURGICAL HISTORY: . HTN. HDL. CHF None. COMPARISON: [facility], US LEG BILATERAL VENOUS DOPPLER, 03/10/2018. . TECHNIQUE: Venous ultrasound of both lower extremities was performed from the inguinal ligament to t he proximal calf. Real-time, color Doppler and spectral tracing, compression and augmentation techni ques were used. FINDINGS: Right Leg: Normal compression of the deep venous system from the inguinal region to the proximal jes f. No echogenic clot is seen. Normal response of the venous system to augmentation and respiration. Left Leg: Normal compression of the deep venous system from the inguinal region to the proximal calf . No echogenic clot is seen. Normal response of the venous system to augmentation and respiration. Other: None. CONCLUSION: 1. No DVT identified. Electronically signed by: Wero Lopez MD 10/16/2018 3:46 PM EST
--- NOTE | 2018-10-16 15:51 | US ---
EXAM DATE: 10/16/2018 3:48 PM EST AGE/SEX: 63 years / Male INDICATIONS: Pre op cardiac surgery. CLINICAL DATA: This is the patient's initial encounter. Patient reports that signs and symptoms have been present for 1 day and indicates a pain score of 0/10. MEDICAL/SURGICAL HISTORY: . HTN. HDL. CHF None. COMPARISON: [facility] [place], US VENOUS DOPPLER LEG BI, 10/16/2018. . MEASUREMENTS: RIGHT THIGH: Proximal:__5 mm Mid:__ 2 mm Distal:__2 mm LEFT THIGH: Proximal:__4 mm Mid:__3 mm Distal:__2 mm RIGHT CALF: Proximal:__2 mm Mid:__1 mm Distal:__1 mm LEFT CALF: Proximal:__2 mm Mid:__1 mm Distal:__1 mm FINDINGS: The venous system of the lower extremities are patent by color Doppler imaging. Measurements of the leg veins (in mm) are listed above. CONCLUSION: 1. Venous mapping as above. Electronically signed by: Wero Lopez MD 10/16/2018 3:50 PM EST
--- NOTE | 2018-10-16 15:57 | US ---
EXAM DATE: 10/16/2018 3:52 PM EST AGE/SEX: 63 years / Male INDICATIONS: Preop cardiac surgery. CLINICAL DATA: This is the patient's initial encounter. Patient reports that signs and symptoms have been present for 1 day and indicates a pain score of 0/10. MEDICAL/SURGICAL HISTORY: Congestive heart failure. . Cardiac cath. COMPARISON: No prior exams available for comparison. VELOCITY PARAMETERS: ICA/CCA Ratio: Right 1.3 , Left 1.3 ICA: Right 99 cm/sec, Left 116 cm/sec CCA: Right 74 cm/sec, Left 87 cm/sec ECA: Right 299 cm/sec, Left 504 cm/sec Vertebral: Right 49 cm/sec antegrade, Left 94 cm/sec antegrade FINDINGS: Right Carotid: There is moderate atherosclerotic plaquing at the bifurcation.The waveforms are withi n normal limits. Left Carotid: There is moderate atherosclerotic plaquing at the bifurcation. The waveforms are within normal limits. Other: None. CONCLUSION: 1. Right Internal Carotid Artery: Moderate atherosclerotic plaquing at the bifurcation. No hemodynam ically significant stenosis identified in the internal carotid circulation. 2. Left Internal Carotid Artery: Moderate atherosclerotic plaquing at the bifurcation. No hemodynami andrea significant stenosis identified in the internal carotid circulation. 3. The exam does demonstrate elevated velocities within the origin of the external carotid circulati on bilaterally. 4. There is antegrade flow within both vertebral arteries. Electronically signed by: Wero Lopez MD 10/16/2018 3:55 PM EST
--- NOTE | 2018-10-16 16:09 | ECG ---
Date Performed: 10/16/2018 Time Performed: 06:00:47 PTAGE: 63 years EKG: Sinus rhythm ST DEVIATION AND MODERATE T-WAVE ABNORMALITY, CONSIDER LATERAL ISCHEMIA ABNORMAL ECG PREVIOUS TRACING :10/16/2018 @06.00 Compared to previous tracing,there is now evidence of anter oseptal infarction with ST elevation in V2 and V3 and Q-waves in V2 and V3 which are mpre prominent. Clinical correlation is recommended DOCTOR: Oscar Inman Interpretating Date/Time 10/16/2018 16:05:39
[2018-10-16 16:36] LABS: Bilirubin,Urine Negative (Negative); Clarity,Urine Clear (Clear); Color,Urine Yellow (Yellw/Straw); Glucose,Urine (UA) Negative (Negative); Leukocyte Esterase,Urine Negative (Negative); Mucus,Urine Few /lpf (Occasional); Nitrite,Urine Negative (Negative); Squamous Epithelial Cell,Urine <1 /hpf (0-5)
[2018-10-16 19:22] LABS: Hemoglobin A1c 5.9 % (4.3-6.0)
--- NOTE | 2018-10-16 19:54 | P.HPIM ---
History of Present Illness Primary Care Physician: No Primary Care Physician Chief Complaint: Chest pain History of Present Illness: This patient is a 63 y/o Male with htn, dyslipidemia, history of tobacco abuse and Systolic chf with an ef of 20%. Patient presented to our ED with complaints of left sided chest pain that occured early this morning. The chest pain was constant and was not improving so he came into the ED for evaluation. He denies any fevers or chills. No abd pain. He did have some sob with exertion and worsening of the chest pain on exertion. He has had similar episodes to this over the past few weeks. pmh HTN, dyslipidemia, systolic chf ef 20% surg hx none family history HTN social hx extensive tobacco smoking hx Inpatient Certification: I certify that the inpatient services were ordered in accordance with Medicare regulations governing the order. This includes certification that hospital inpatient services are reasonable and necessary and in the case of services not specified as inpatient-only under 42 CFR 419.22(n), that they are appropriately provided as inpatient services in accordance to with the 2-midnight benchmark under 43 CFR 412.3(e) Estimated Total Length of Stay (Days): 7 Plans for Post Hospital Care: Not yet determined Review of Systems All other systems reviewed negative except as stated in HPI [facility] - History History Provided By: Patient - Medical History Medical History: Medical History (Last Updated 10/16/18 @ 06:20 by Elizabeth Ross RN) CHF (congestive heart failure) - Surgical History Surgical History: Surgical History (Last Updated 10/16/18 @ 06:24 by Elizabeth Ross RN) No history of previous surgery - Tobacco History Second Hand Smoke Exposure: Yes Tobacco Use In Past 30 Days: Yes Smoking Status: Current every day smoker Tobacco Type: Cigarettes - Alcohol History How Often Do You Have a Drink Containing Alcohol: Never - Travel History Recent Travel in the [place] Within the Last 8 Weeks: No Recent Travel Out of the Country Within the Last 8 Weeks: No - Immunization History Tetanus Immunization: Unsure Medications and Allergies Active Medications: Active Medications Aspirin (Aspirin Chew) 81 mg PO DAILY [facility] Last Admin: 10/16/18 09:25 Dose: 81 mg Atorvastatin Calcium (Lipitor) 40 mg PO DAILY [facility] Last Admin: 10/16/18 09:24 Dose: 40 mg Carvedilol (Coreg) 12.5 mg PO BID [facility] Last Admin: 10/16/18 09:25 Dose: Not Given Chlorhexidine Gluconate (Hibiclens 4% Topical) 1 applicatio TOPICAL RETAIL STOCK CLERK [facility] Stop: 10/22/18 10:31 Sodium Chloride 77.5 ml/Papaverine HCl 60 mg/Nitroglycerin 100 mcg/Diltiazem HCl 100 mg 0 ml IRRIGATION RETAIL STOCK CLERK [facility] Stop: 10/22/18 10:31 Sodium Chloride 500 ml/ (Cefazolin Sodium 500 mg) 0 ml [employer]ATION RETAIL STOCK CLERK [facility] Stop: 10/22/18 10:32 Dextrose (D50w Vial) 50 ml IV.PUSH UNSCH PRN PRN Reason: PER HYPOGLYCEMIA PROTOCOL Furosemide (Lasix) 20 mg PO DAILY [facility] Last Admin: 10/16/18 09:25 Dose: Not Given Sodium Chloride (Ns Inj) 1,000 mls @ 30 mls/hr IV.SIG .Q24H [facility] Stop: 10/17/18 06:14 Last Admin: 10/16/18 06:14 Dose: 30 mls/hr Heparin Sodium/Dextrose (Heparin/D5w 25,000 U/250 Ml) 25,000 unit in 250 mls @ 0 mls/hr IV.CONT TITRATE PRN; Protocol PRN Reason: Per Protocol Last Admin: 10/16/18 15:07 Dose: 1,000 units/hr, 10 mls/hr Cefazolin Sodium 2,000 mg/ (Sodium Chloride) 100 mls @ 200 mls/hr IV.SIG RETAIL STOCK CLERK [facility] Stop: 10/22/18 10:32 Insulin Human Regular 100 unit (/ Sodium Chloride) 100 mls @ 3 mls/hr IV.CONT TITRATE PRN; Protocol PRN Reason: See Protocol Sodium Chloride (Ns Flush) 2 ml IV.FLUSH PRN PRN PRN Reason: FLUSH AFTER USING IV ACCESS Sodium Chloride (Ns Flush) 2 ml IV.FLUSH BID [facility] Last Admin: 10/16/18 09:25 Dose: 2 ml Sodium Chloride (Ns Flush) 2 ml IV.FLUSH PRN PRN PRN Reason: FLUSH AFTER USING IV ACCESS Sodium Chloride (Ns Flush) 2 ml IV.FLUSH BID [facility] Sodium Chloride (Ns Flush) 2 ml IV.FLUSH PRN PRN PRN Reason: FLUSH AFTER USING IV ACCESS Allergies Allergy/AdvReac Type Severity Reaction Status Date / Time No Known Allergies Allergy Verified 10/16/18 06:46 Home Medications Medication Instructions Recorded Confirmed Type atorvastatin 40 mg PO DAILY 10/16/18 10/16/18 History carvedilol 12.5 mg PO BID 10/16/18 10/16/18 History furosemide 20 mg PO DAILY 10/16/18 10/16/18 History lisinopril 40 mg PO DAILY 10/16/18 10/16/18 History Exam Vital signs: Vital Signs 10/16/18 06:08 10/16/18 06:11 10/16/18 06:23 Temperature 98.0 F Pulse Rate Respiratory Rate Blood Pressure 192/92 H Pulse Oximetry 100 100 10/16/18 06:27 10/16/18 08:30 10/16/18 09:00 Temperature Pulse Rate 65 67 66 Respiratory Rate 18 Blood Pressure 169/78 H Pulse Oximetry 10/16/18 10:00 10/16/18 11:00 10/16/18 12:00 Temperature Pulse Rate 64 64 66 Respiratory Rate 16 Blood Pressure 151/71 H Pulse Oximetry 10/16/18 13:00 10/16/18 14:00 10/16/18 15:00 Temperature Pulse Rate 74 74 70 Respiratory Rate 16 Blood Pressure 133/69 Pulse Oximetry 10/16/18 16:00 10/16/18 17:00 10/16/18 18:00 Temperature Pulse Rate 76 90 88 Respiratory Rate Blood Pressure Pulse Oximetry Intake & Output 10/16/18 10/16/18 10/17/18 06:59 18:59 06:59 Intake Total 480 / 480 Output Total 1100 / 1100 Balance -620 / -620 Weight 92.6 kg Intake: Oral 480 / 480 Output: Urine 1100 / 1100 Narrative: Patient with no active chest pain S1 S2 CTA b/l soft, nontender, normal bowel sounds no edema of the exts no neuro deficits. Results - Labs CBC & Chem 7: 10/16/18 06:09 10/16/18 07:20 Labs: Short CBC 10/16/18 Range/Units 06:09 WBC 10.4 (4.0-11.0) th/mm3 Hgb 16.3 (13.0-17.0) gm/dL Hct 49.1 (39.0-51.0) % Plt Count 147 L (150-450) th/mm3 BMP 10/16/18 10/16/18 06:09 07:20 Sodium 140 Potassium 4.4 Chloride 111 H Carbon Dioxide 21.8 BUN 18 Creatinine 1.31 H Calcium 9.2 8.8 Cardiac Enzymes 10/16/18 Range/Units 06:09 Total Creatine Kinase 164 (39-308) U/L CK-MB (CK-2) 2.3 (0.5-3.6) ng/mL Troponin I 0.03 (0.02-0.05) ng/mL Liver Function 10/16/18 Range/Units 07:20 Total Bilirubin 0.6 (0.2-1.0) mg/dL Direct Bilirubin 0.2 (0.0-0.2) mg/dL AST 30 (15-37) U/L ALT 41 (12-78) U/L Alkaline Phosphatase 73 (45-117) U/L Albumin 3.6 (3.4-5.0) g/dL Urine 10/16/18 Range/Units 16:14 Urine Color Yellow (Yellw/Straw) Urine Clarity Clear (Clear) Urine pH 5.0 (5.0-8.5) Ur Specific [place] 1.030 (1.002-1.035) Urine Protein Negative (Neg-Trace) mg/dL Urine Glucose (UA) Negative (Negative) mg/dL - Imaging Impressions Chest X-Ray 10/16/18 06:06 CONCLUSION: No active disease. Carotid Doppler Study 10/16/18 10:31 CONCLUSION: 1. Right Internal Carotid Artery: Moderate atherosclerotic plaquing at the bifurcation. No hemodynamically significant stenosis identified in the internal carotid circulation. 2. Left Internal Carotid Artery: Moderate atherosclerotic plaquing at the bifurcation. No hemodynamically significant stenosis identified in the internal carotid circulation. 3. The exam does demonstrate elevated velocities within the origin of the external carotid circulation bilaterally. 4. There is antegrade flow within both vertebral arteries. Lower Extremity Ultrasound 10/16/18 10:31 CONCLUSION: 1. Venous mapping as above. Venous Doppler Study 10/16/18 10:31 CONCLUSION: 1. No DVT identified. Caprini VTE Risk Assessment Caprini VTE Risk Assessment: Moderate/High Risk (score >= 2) Caprini Risk Assessment Model: Point Value = 1 Point Value = 2 Point Value = 3 Point Value = 5 Age 41-60 Minor surgery BMI > 25 kg/m2 Swollen legs Varicose veins or History of unexplained or recurrent spontaneous Oral contraceptives or hormone replacement Sepsis (< 1 month) Serious lung disease, including pneumonia (< 1 month) Abnormal pulmonary function Acute myocardial infarction Congestive heart failure (< 1 month) History of inflammatory bowel disease Medical patient at bed rest Age 61-74 Arthroscopic surgery Major open surgery (> 45 min) Laparoscopic surgery (> 45 min) Malignancy Confined to bed (> 72 hours) Immobilizing plaster cast Central venous access Age >= 75 History of VTE Family history of VTE Factor V Leiden Prothrombin [id number] Lupus anticoagulant Anticardiolipin antibodies Elevated serum homocysteine Heparin-induced thrombocytopenia Other congenital or acquired thrombophilia Stroke (< 1 month) Elective arthroplasty Hip, pelvis, or leg fracture Acute spinal cord injury (< 1 month) Prophylaxis Regimen: Total Risk Factor Score Risk Level Prophylaxis Regimen 0-1 Low Early ambulation 2 Moderate Order ONE of the following: *Sequential Compression Device (SCD) *Heparin 5000 units SQ BID 3-4 Higher Order ONE of the following medications: *Heparin 5000 units SQ TID *Enoxaparin/Lovenox 40 mg SQ daily (WT < 150 kg, CrCl > 30 mL/min) *Enoxaparin/Lovenox 30 mg SQ daily (WT < 150 kg, CrCl > 10-29 mL/min) *Enoxaparin/Lovenox 30 mg SQ BID (WT < 150 kg, CrCl > 30 mL/min) AND/OR *Sequential Compression Device (SCD) 5 or more Highest Order ONE of the following medications: *Heparin 5000 units SQ TID (Preferred with Epidurals) *Enoxaparin/Lovenox 40 mg SQ daily (WT < 150 kg, CrCl > 30 mL/min) *Enoxaparin/Lovenox 30 mg SQ daily (WT < 150 kg, CrCl > 10-29 mL/min) *Enoxaparin/Lovenox 30 mg SQ BID (WT < 150 kg, CrCl > 30 mL/min) AND *Sequential Compression Device (SCD) Assessment and Plan - Plan This patient is a 63 y/o Male with htn, dyslipidemia, history of tobacco abuse and Systolic chf with an ef of 20%. Patient presented to our ED with complaints of left sided chest pain that occured early this morning. The chest pain was constant and was not improving so he came into the ED for evaluation. He denies any fevers or chills. No abd pain. He did have some sob with exertion and worsening of the chest pain on exertion. He has had similar episodes to this over the past few weeks. 1. Chest pain concern for ACS 2. Coronary artery disease 3. Dyslipidemia 4 HTN Patient presented with chest pain EKG initially showed NSR with st elevations in III and Avf. Cardiology was immediately consulted Recommendations were for the pt to undergo cardiac cath Patient started on asa, statin, bb, heparin gtt Cardiac cath showed significant multivessel disease Plan is for the patient to undergo CABG this Monday. Continue to monitor on telemetry. Continue current medications. DVT prophylaxis, pt currently on Heparin gtt.
[2018-10-17 07:01] LABS: Baso % (Auto) 0.5 % (0.0-2.0); Eos # (Auto) 0.1 th/mm3 (0.0-0.4); Eos % (Auto) 1.1 % (0.0-4.0); Hematocrit 44.6 % (39.0-51.0); Hemoglobin 15.1 gm/dL (13.0-17.0); Lymph # (Auto) 2.9 th/mm3 (1.0-4.8); Lymph % (Auto) 34.6 % (9.0-44.0); Mean Corpuscular HGB Conc 33.9 % (32.0-36.0); Mean Corpuscular Hemoglobin 32.9 pg (27.0-34.0); Mono # (Auto) 0.9 th/mm3 (0.0-0.9); Mono % (Auto) 10.8 % (0.0-8.0); Neut # (Auto) 4.4 th/mm3 (1.8-7.7); Platelet Count 134 th/mm3 (150-450); Red Cell Distribution Width 13.5 % (11.6-17.2); White Blood Count 8.4 th/mm3 (4.0-11.0)
[2018-10-17 07:31] LABS: Calcium 9.2 mg/dL (8.5-10.1); Carbon Dioxide 23.2 meq/L (21.0-32.0); Magnesium 2.2 mg/dL (1.5-2.5); Potassium 4.1 meq/L (3.5-5.1)
[2018-10-17] MEDS: Furosemide 20 MG Tablet PO SCH (09:08)
[2018-10-17] MEDS: Carvedilol 12.5 MG Tablet PO SCH ×2 (09:08→20:35)
--- NOTE | 2018-10-17 12:34 | P.PNIM ---
Subjective Interval history: Chief Complaint: Chest pain History of Present Illness: This patient is a 63 y/o Male with htn, dyslipidemia, history of tobacco abuse and Systolic chf with an ef of 20%. Patient presented to our ED with complaints of left sided chest pain that occured early this morning. The chest pain was constant and was not improving so he came into the ED for evaluation. He denies any fevers or chills. No abd pain. He did have some sob with exertion and worsening of the chest pain on exertion. He has had similar episodes to this over the past few weeks. pmh HTN, dyslipidemia, systolic chf ef 20% surg hx none family history HTN social hx extensive tobacco smoking hx 10-17 PATIENT IS SCHEDULED TO GO FOR CABG TOMORROW PER [facility] CATH PER DR PATEL NO CHEST PAIN, NO NAUSEA, NO VOMITING REMAINS ON HEPARIN DRIP AT THIS TIME A.m. labs Discussed with patient and RN Physical Exam Vital signs: Vital Signs 10/16/18 13:00 10/16/18 14:00 10/16/18 15:00 Temperature Pulse Rate 74 74 70 Respiratory Rate 16 Blood Pressure 133/69 Pulse Oximetry 10/16/18 16:00 10/16/18 17:00 10/16/18 18:00 Temperature Pulse Rate 76 90 88 Respiratory Rate Blood Pressure Pulse Oximetry 10/16/18 19:00 10/16/18 20:00 10/16/18 21:00 Temperature 99.5 F Pulse Rate 83 82 82 Respiratory Rate 16 Blood Pressure 152/72 H Pulse Oximetry 95 98 10/16/18 22:00 10/16/18 23:00 10/17/18 00:00 Temperature 98.5 F Pulse Rate 86 78 88 Respiratory Rate 18 Blood Pressure 136/74 Pulse Oximetry 98 10/17/18 01:00 10/17/18 02:00 10/17/18 03:00 Temperature 98.8 F Pulse Rate 70 70 77 Respiratory Rate 14 Blood Pressure 121/51 L Pulse Oximetry 96 10/17/18 04:00 10/17/18 05:00 10/17/18 06:00 Temperature Pulse Rate 77 79 79 Respiratory Rate Blood Pressure Pulse Oximetry 10/17/18 07:00 10/17/18 08:00 10/17/18 09:00 Temperature 97.7 F Pulse Rate 73 82 78 Respiratory Rate 16 Blood Pressure 145/74 H Pulse Oximetry 95 95 10/17/18 10:00 10/17/18 11:00 10/17/18 12:16 Temperature 97.7 F Pulse Rate 70 76 Respiratory Rate 16 Blood Pressure 153/72 H Pulse Oximetry 95 97 Intake & Output 10/16/18 10/17/18 10/17/18 18:59 06:59 18:59 Intake Total 480 / 480 240 / 240 Output Total 1100 / 1100 550 / 550 Balance -620 / -620 -310 / -310 Weight 89.1 kg Intake: Oral 480 / 480 240 / 240 Output: Urine 1100 / 1100 550 / 550 Narrative: GENERAL: Awake alert and oriented x3 talkative and cooperative no acute distress at this time SKIN: Warm and dry. HEAD: Atraumatic. Normocephalic. EYES: Pupils equal and round. No scleral icterus. No injection or drainage. ENT: No nasal bleeding or discharge. Mucous membranes pink and moist. EOMI wears glasses NECK: Trachea midline. No JVD. Supple CARDIOVASCULAR: Regular rate and rhythm. S1-S2 no S3 or S4 RESPIRATORY: No accessory muscle use. Clear to auscultation. Breath sounds equal bilaterally. GASTROINTESTINAL: Abdomen soft, non-tender, nondistended. Hepatic and splenic margins not palpable. MUSCULOSKELETAL: Extremities without clubbing, cyanosis, or edema. No obvious deformities. NEUROLOGICAL: Awake and alert. No obvious cranial nerve deficits. Motor grossly within normal limits. Five out of 5 muscle strength in the arms and legs. Normal speech. PSYCHIATRIC: Appropriate mood and affect; insight and judgment normal. Results - Labs CBC & Chem 7: 10/17/18 04:19 10/17/18 04:19 Laboratory Results - last 24 hr 10/16/18 10/16/18 10/16/18 06:09 07:20 16:14 WBC RBC Hgb Hct MCV MCH MCHC RDW Plt Count MPV Neut % (Auto) Lymph % (Auto) [place] % (Auto) Eos % (Auto) Baso % (Auto) Neut # (Auto) Lymph # (Auto) [place] # (Auto) Eos # (Auto) Baso # (Auto) WBC Differential Differential Comment APTT Sodium Potassium Chloride Carbon Dioxide Anion Gap BUN Creatinine Estimated GFR Random Glucose Hemoglobin A1c 5.9 Calcium Magnesium Total Bilirubin 0.6 Direct Bilirubin 0.2 Indirect Bilirubin 0.4 AST 30 ALT 41 Alkaline Phosphatase 73 Total Protein 7.5 Albumin 3.6 Urine Color Yellow Urine Clarity Clear Urine pH 5.0 Ur Specific Alvin 1.030 Urine Protein Negative Urine Glucose (UA) Negative Urine Ketones Negative Urine Occult Blood Negative Urine Nitrate Negative Urine Bilirubin Negative Urine Urobilinogen Less than 2 Ur Leukocyte Esterase Negative Urine RBC Less than 1 Urine WBC Less than 1 Ur Squamous Epith Cells <1 Urine Mucus Few H Micro UA Comment Culture not ind Ur Microscopic Review Not Reportable Urine Culture Comments Culture not ind Nasal Screen MRSA (PCR) 10/16/18 10/16/18 10/17/18 16:17 21:09 02:57 WBC RBC Hgb Hct MCV MCH MCHC RDW Plt Count MPV Neut % (Auto) Lymph % (Auto) [place] % (Auto) Eos % (Auto) Baso % (Auto) Neut # (Auto) Lymph # (Auto) [place] # (Auto) Eos # (Auto) Baso # (Auto) WBC Differential Differential Comment APTT 48.4 H D 57.3 H Sodium Potassium Chloride Carbon Dioxide Anion Gap BUN Creatinine Estimated GFR Random Glucose Hemoglobin A1c Calcium Magnesium Total Bilirubin Direct Bilirubin Indirect Bilirubin AST ALT Alkaline Phosphatase Total Protein Albumin Urine Color Urine Clarity Urine pH Ur Specific Alvin Urine Protein Urine Glucose (UA) Urine Ketones Urine Occult Blood Urine Nitrate Urine Bilirubin Urine Urobilinogen Ur Leukocyte Esterase Urine RBC Urine WBC Ur Squamous Epith Cells Urine Mucus Micro UA Comment Ur Microscopic Review Urine Culture Comments Nasal Screen MRSA (PCR) Not detected 10/17/18 10/17/18 04:19 04:19 WBC 8.4 RBC 4.60 Hgb 15.1 Hct 44.6 MCV 97.0 MCH 32.9 MCHC 33.9 RDW 13.5 Plt Count 134 L MPV 10.0 Neut % (Auto) 53.0 Lymph % (Auto) 34.6 [place] % (Auto) 10.8 H Eos % (Auto) 1.1 Baso % (Auto) 0.5 Neut # (Auto) 4.4 Lymph # (Auto) 2.9 [place] # (Auto) 0.9 Eos # (Auto) 0.1 Baso # (Auto) 0.0 WBC Differential . Differential Comment Auto diff final APTT Sodium 137 Potassium 4.1 Chloride 106 Carbon Dioxide 23.2 Anion Gap 8 BUN 23 H Creatinine 1.48 H Estimated GFR 48 L Random Glucose 87 Hemoglobin A1c Calcium 9.2 Magnesium 2.2 Total Bilirubin Direct Bilirubin Indirect Bilirubin AST ALT Alkaline Phosphatase Total Protein Albumin Urine Color Urine Clarity Urine pH Ur Specific Alvin Urine Protein Urine Glucose (UA) Urine Ketones Urine Occult Blood Urine Nitrate Urine Bilirubin Urine Urobilinogen Ur Leukocyte Esterase Urine RBC Urine WBC Ur Squamous Epith Cells Urine Mucus Micro UA Comment Ur Microscopic Review Urine Culture Comments Nasal Screen MRSA (PCR) - Imaging Impressions Carotid Doppler Study 10/16/18 10:31 CONCLUSION: 1. Right Internal Carotid Artery: Moderate atherosclerotic plaquing at the bifurcation. No hemodynamically significant stenosis identified in the internal carotid circulation. 2. Left Internal Carotid Artery: Moderate atherosclerotic plaquing at the bifurcation. No hemodynamically significant stenosis identified in the internal carotid circulation. 3. The exam does demonstrate elevated velocities within the origin of the external carotid circulation bilaterally. 4. There is antegrade flow within both vertebral arteries. Lower Extremity Ultrasound 10/16/18 10:31 CONCLUSION: 1. Venous mapping as above. Venous Doppler Study 10/16/18 10:31 CONCLUSION: 1. No DVT identified. - Procedures 10/16/2018 PROCEDURES: Left heart catheterization, coronary angiogram, ultrasound-guided access, moderate sedation 30 minutes. PREPROCEDURE DIAGNOSES: EKG changes concerning for possible ST elevation myocardial infarction, chest pain concerning for coronary insufficiency. POSTPROCEDURE DIAGNOSES: Infarction of the anterior and inferior wall with a chronic total occlusions, ischemic cardiomyopathy. CONTRAST USED: 80 mL. FLUOROSCOPY: 2.6 minutes. MODERATE SEDATION: 30 minutes. FRAILTY SCORE: 4. ESTIMATED BLOOD LOSS: 10 mL. PROCEDURAL SUMMARY: Capo Hernandez is a 63-year-old male who presented to [facility] Emergency Room this morning due to chest pain. He states that he has had chest pain on and off for the past week or so. He was found to have previously had an ejection fraction of 20% and recommended an ischemic evaluation in February, but refused at that time. On arrival, an EKG was done and there was concern for some minimal ST elevation, although not much different from his previous EKG in February. He was sent to the photographic laboratory supervisor due to concern for ST elevations. Upon leaving the Emergency Room in [place], his chest pain was now gone. On arrival here, he continued to not have chest pain. I discussed with him the need for cardiac catheterization due to his previous cardiomyopathy including risks, benefits, and alternatives; and he agreed to proceed with the case. He was brought to the lab and prepped in the usual sterile fashion. The right femoral artery was accessed using a modified Seldinger technique with ultrasound guidance and placement of a 6-[place]oz[place] sheath. This was easily aspirated and flushed. A JR4 was advanced over a J-wire to the ascending aorta and across the aortic valve for measurement of left ventricular pressure. This was pulled back across the aortic valve showing no significant gradient of aortic stenosis. JR4 was used for selective angiography of the right coronary artery system. This was exchanged out for a JL4, which was used for selective angiography of the left coronary artery system. JL4 was removed over a J wire. ACT was checked and was 174 and so sheath was pulled and pressure held for hemostasis. The patient left the photographic laboratory supervisor cardiovascularly stable. FINDINGS: LEFT MAIN: Moderate-sized vessel, which distally tapers to 70%-80%. It trifurcates into an LAD, ramus, and circumflex. LAD: There is 80% disease at the ostial portion with 100% in the mid portion. There are cagu-rd-onnq collaterals which supply the mid and distal LAD as well as the diagonal. RAMUS: Moderate-sized vessel, which has a 60% lesion of the proximal portion and diffusely 30% disease throughout. LEFT CIRCUMFLEX: Moderate-sized vessel with 30% disease throughout. It supplies 2 obtuse marginals with no significant disease. RCA: It was 100% occluded in the mid portion with leqkx-ww-nnqor and mbmt-fu-nodgs collaterals. LVEDP: 10. IMPRESSION: 1. Possible ST elevation myocardial infarction, more likely EKG changes consistent with previous anterior septal myocardial infarction. 2. Multivessel coronary artery disease with 100% occlusion of the right coronary artery as well as the left anterior descending and significant left main disease. 3. Ischemic cardiomyopathy with a previous ejection fraction of 20%. RECOMMENDATIONS: 1. Capo Hernandez presented as a STEMI alert, but ultimately his EKG looks similar to previous, more likely that this is an old anterior septal myocardial infarction 2. During his cardiac catheterization, he was found to have multivessel disease with occlusions of the RCA and LAD, which appeared to be chronic in nature. Upon arrival to the photographic laboratory supervisor, he was no longer having chest pain, which would not be consistent with an acute STEMI presentation. 3. This is probably what led to his ischemic cardiomyopathy. 4. He will be admitted and seen by CT surgery for further consideration of coronary artery bypass grafting. 5. We will plan on placing him on a heparin drip 6 hours after sheath was pulled. 6. We will recheck an echo to further evaluate his overall ejection fraction. Thank you for allowing me to see Capo Hernandez. If there are any questions, please do not hesitate to call. Jeferson Patel, DO VGP/rs , 08:05 AM , 08:15 AM Assessment and Plan - Plan This patient is a 63 y/o Male with htn, dyslipidemia, history of tobacco abuse and Systolic chf with an ef of 20%. Patient presented to our ED with complaints of left sided chest pain that occured early this morning. The chest pain was constant and was not improving so he came into the ED for evaluation. He denies any fevers or chills. No abd pain. He did have some sob with exertion and worsening of the chest pain on exertion. He has had similar episodes to this over the past few weeks. 1. Chest pain concern for ACS 2. Coronary artery disease 3. Dyslipidemia 4 HTN Patient presented with chest pain EKG initially showed NSR with st elevations in III and Avf. Cardiology was immediately consulted Recommendations were for the pt to undergo cardiac cath Patient started on asa, statin, bb, heparin gtt Cardiac cath showed significant multivessel disease Plan is for the patient to undergo CABG this . Continue to monitor on telemetry. Continue current medications. DVT prophylaxis, pt currently on Heparin gtt. A.m. labs Code Status: Full code Discussed Condition With: RN and patient Discharge Planning: Once cleared by cardiovascular surgery after he has had surgery and is doing well Progress Note: Quality - AMI Clinical Trial Participant: No
--- NOTE | 2018-10-17 12:48 | ECHRPT ---
Indication: CORONARY ATHEROSCLEROSIS CONCLUSIONS Normal left ventricular size. Mild concentric left ventricular hypertrophy. There is diffuse global hypokinesis with distinct regional wall motion abnormalities. The left ventricular systolic function is smqztycu-vj-eytwhba reduced with an estimated ejection fra ction in the range of 35-40%. The pulmonary valve is not well visualized. BP: / HR: Rhythm: Sinus MEASUREMENTS (Male / Female) Normal Values Technical Quality:Fair 2D ECHO LV Diastolic Diameter PLAX 4.9 cm 4.2 - 5.9 / 3.9 - 5.3 cm LV Systolic Diameter PLAX 4.3 cm IVS Diastolic Thickness 1.2 cm 0.6 - 1.0 / 0.6 - 0.9 cm LVPW Diastolic Thickness 1.2 cm 0.6 - 1.0 / 0.6 - 0.9 cm LV Relative Wall Thickness 0.5 LVOT Diameter 2.0 cm LA Systolic Diameter LX 3.3 cm 3.0 - 4.0 / 2.7 - 3.8 cm LV Ejection Fraction MOD 4C 31.6 % LV Ejection Fraction 4C AL 33.9 % M-MODE Aortic Root Diameter MM 2.9 cm LA Systolic Diameter MM 3.5 cm LA Ao Ratio MM 1.2 AV Cusp Separation MM 1.9 cm DOPPLER AV Peak Velocity 76.0 cm/s AV Peak Gradient 2.3 mmHg LVOT Peak Velocity 78.5 cm/s LVOT Peak Gradient 2.5 mmHg AV Area Cont Eq pk 3.2 cm MV Area PHT 3.8 cm Mitral E Point Velocity 54.3 cm/s Mitral A Point Velocity 99.7 cm/s Mitral E to A Ratio 0.5 PV Peak Velocity 102.0 cm/s PV Peak Gradient 4.2 mmHg FINDINGS LEFT VENTRICLE Normal left ventricular size. Mild concentric left ventricular hypertrophy. There is diffuse global hypokinesis with distinct regional wall motion abnormalities. The left ventricular systolic function is gjuabzhv-wd-hkbuzzu reduced with an estimated ejection fra ction in the range of 35-40%. RIGHT VENTRICLE Normal right ventricular size and systolic function. LEFT ATRIUM The left atrial size is normal. RIGHT ATRIUM The right atrial size is normal. ATRIAL SEPTUM Normal atrial septal thickness without atrial level shunting by limited color doppler interrogation. AORTA The aortic root and proximal ascending aorta are normal in size on limited imaging. MITRAL VALVE Structurally normal mitral valve. No mitral valve stenosis or regurgitation. AORTIC VALVE Trileaflet aortic valve. No aortic valve stenosis or regurgitation. TRICUSPID VALVE Structurally normal tricuspid valve. No tricuspid valve stenosis or regurgitation. PULMONARY VALVE The pulmonary valve is not well visualized. VESSELS The inferior vena cava is normal in size. PERICARDIUM No pericardial effusion. Wiliam Ch MD, FACC (Electronically Signed) Final Date:17 October 2018 12:48
--- NOTE | 2018-10-17 13:28 | P.PNCV ---
- Note Subjective/Hospital Course: A 63-year-old male transferred from [facility] secondary to chest pain. Chest pain apparently starts in his hands, moves of his arms and then comes to retrosternal chest pain. He has had this chest pain off and on for the past few days to a week, which last 2-5 minutes. More noticeable with exertion, relieved with rest. He was previously seen in 02/2018 and was found to have a very low ejection fraction of 20%. He was recommended an ischemic workup, but then he was concerned about insurance, which he is now under Medicaid plan. There was initially concern for ST elevation; however, STEMI was ruled out. He had negative troponins. He underwent cardiac catheterization by Dr. Butler today , which showed ejection fraction of 20% by his prior echo 03/2018, left main disease of 80%, the proximal LAD 70%, the mid distal LAD 100%, the diagonal 100% , the RCA 100%, the ramus 60%. We were consulted to evaluate for coronary artery bypass graft. Repeat echo EF 35-40% PAST MEDICAL HISTORY: Includes ischemic cardiomyopathy, hypertension, hyperlipidemia, history of hepatitis, which was apparently treated with medication, tobacco abuse. The patient has been smoking since the age of 16. Now, he is down to half a pack. He was up to a pack per day. The patient has chronic kidney disease with GFR 55. 10/17 pt pain free, scheduled for surgery second case in am Objective: Vital Signs - 24 hr 10/16/18 14:00 10/16/18 15:00 10/16/18 16:00 Temperature Pulse Rate 74 70 76 Respiratory Rate 16 Blood Pressure 133/69 Pulse Oximetry 10/16/18 17:00 10/16/18 18:00 10/16/18 19:00 Temperature 99.5 F Pulse Rate 90 88 83 Respiratory Rate 16 Blood Pressure 152/72 H Pulse Oximetry 95 10/16/18 20:00 10/16/18 21:00 10/16/18 22:00 Temperature Pulse Rate 82 82 86 Respiratory Rate Blood Pressure Pulse Oximetry 98 10/16/18 23:00 10/17/18 00:00 10/17/18 01:00 Temperature 98.5 F Pulse Rate 78 88 70 Respiratory Rate 18 Blood Pressure 136/74 Pulse Oximetry 98 10/17/18 02:00 10/17/18 03:00 10/17/18 04:00 Temperature 98.8 F Pulse Rate 70 77 77 Respiratory Rate 14 Blood Pressure 121/51 L Pulse Oximetry 96 10/17/18 05:00 10/17/18 06:00 10/17/18 07:00 Temperature 97.7 F Pulse Rate 79 79 73 Respiratory Rate 16 Blood Pressure 145/74 H Pulse Oximetry 95 10/17/18 08:00 10/17/18 09:00 10/17/18 10:00 Temperature Pulse Rate 82 78 70 Respiratory Rate Blood Pressure Pulse Oximetry 95 10/17/18 11:00 10/17/18 12:16 Temperature 97.7 F Pulse Rate 76 Respiratory Rate 16 Blood Pressure 153/72 H Pulse Oximetry 95 97 GENERAL: SKIN: Warm and dry. HEAD: Normocephalic. EYES: No scleral icterus. No injection or drainage. NECK: Supple, trachea midline. No JVD or lymphadenopathy. CARDIOVASCULAR: Regular rate and rhythm without murmurs, gallops, or rubs. RESPIRATORY: Breath sounds equal bilaterally. No accessory muscle use. GASTROINTESTINAL: Abdomen soft, non-tender, nondistended. MUSCULOSKELETAL: No cyanosis, or edema. BACK: Nontender without obvious deformity. No CVA tenderness. Labs: Laboratory Results - last 12 hr 10/17/18 10/17/18 10/17/18 02:57 04:19 04:19 WBC 8.4 RBC 4.60 Hgb 15.1 Hct 44.6 MCV 97.0 MCH 32.9 MCHC 33.9 RDW 13.5 Plt Count 134 L MPV 10.0 Neut % (Auto) 53.0 Lymph % (Auto) 34.6 [place] % (Auto) 10.8 H Eos % (Auto) 1.1 Baso % (Auto) 0.5 Neut # (Auto) 4.4 Lymph # (Auto) 2.9 [place] # (Auto) 0.9 Eos # (Auto) 0.1 Baso # (Auto) 0.0 WBC Differential . Differential Comment Auto diff final APTT 57.3 H Sodium 137 Potassium 4.1 Chloride 106 Carbon Dioxide 23.2 Anion Gap 8 BUN 23 H Creatinine 1.48 H Estimated GFR 48 L Random Glucose 87 Calcium 9.2 Magnesium 2.2 Result Diagrams: 10/17/18 04:19 10/17/18 04:19
[2018-10-17] MEDS: Heparin Drip 25,000 UNIT/250 ML BAG IV.CONT PRN (14:33)
--- NOTE | 2018-10-17 16:32 | P.PNCA ---
Subjective Interval history: No events overnight Feels well, up and walking Medications and Allergies Active Medications: Active Medications Aspirin (Aspirin Chew) 81 mg PO DAILY [facility] Last Admin: 10/17/18 09:07 Dose: 81 mg Atorvastatin Calcium (Lipitor) 40 mg PO DAILY [facility] Last Admin: 10/17/18 09:08 Dose: 40 mg Carvedilol (Coreg) 12.5 mg PO BID [facility] Last Admin: 10/17/18 09:08 Dose: 12.5 mg Chlorhexidine Gluconate (Hibiclens 4% Topical) 1 applicatio TOPICAL OPHTHALMIC NURSE [facility] Stop: 10/22/18 10:31 Sodium Chloride 77.5 ml/Papaverine HCl 60 mg/Nitroglycerin 100 mcg/Diltiazem HCl 100 mg 0 ml IRRIGATION OPHTHALMIC NURSE [facility] Stop: 10/22/18 10:31 Sodium Chloride 500 ml/ (Cefazolin Sodium 500 mg) 0 ml IRRIGATION OPHTHALMIC NURSE [facility] Stop: 10/22/18 10:32 Dextrose (D50w Vial) 50 ml IV.PUSH UNSCH PRN PRN Reason: PER HYPOGLYCEMIA PROTOCOL Furosemide (Lasix) 20 mg PO DAILY [facility] Last Admin: 10/17/18 09:08 Dose: 20 mg Heparin Sodium/Dextrose (Heparin/D5w 25,000 U/250 Ml) 25,000 unit in 250 mls @ 0 mls/hr IV.CONT TITRATE PRN; Protocol PRN Reason: Per Protocol Last Admin: 10/17/18 14:33 Dose: 1,000 units/hr, 10 mls/hr Cefazolin Sodium 2,000 mg/ (Sodium Chloride) 100 mls @ 200 mls/hr IV.SIG OPHTHALMIC NURSE [facility] Stop: 10/22/18 10:32 Insulin Human Regular 100 unit (/ Sodium Chloride) 100 mls @ 3 mls/hr IV.CONT TITRATE PRN; Protocol PRN Reason: See Protocol Sodium Chloride (Ns Flush) 2 ml IV.FLUSH PRN PRN PRN Reason: FLUSH AFTER USING IV ACCESS Sodium Chloride (Ns Flush) 2 ml IV.FLUSH BID [facility] Last Admin: 10/17/18 09:08 Dose: Not Given Sodium Chloride (Ns Flush) 2 ml IV.FLUSH PRN PRN PRN Reason: FLUSH AFTER USING IV ACCESS Sodium Chloride (Ns Flush) 2 ml IV.FLUSH BID [facility] Last Admin: 10/17/18 09:08 Dose: Not Given Sodium Chloride (Ns Flush) 2 ml IV.FLUSH PRN PRN PRN Reason: FLUSH AFTER USING IV ACCESS Allergies Allergy/AdvReac Type Severity Reaction Status Date / Time No Known Allergies Allergy Verified 10/16/18 06:46 Home Medications Medication Instructions Recorded Confirmed Type atorvastatin 40 mg PO DAILY 10/16/18 10/16/18 History carvedilol 12.5 mg PO BID 10/16/18 10/16/18 History furosemide 20 mg PO DAILY 10/16/18 10/16/18 History lisinopril 40 mg PO DAILY 10/16/18 10/16/18 History Physical Exam Vital signs: Vital Signs 10/16/18 17:00 10/16/18 18:00 10/16/18 19:00 Temperature 99.5 F Pulse Rate 90 88 83 Respiratory Rate 16 Blood Pressure 152/72 H Pulse Oximetry 95 10/16/18 20:00 10/16/18 21:00 10/16/18 22:00 Temperature Pulse Rate 82 82 86 Respiratory Rate Blood Pressure Pulse Oximetry 98 10/16/18 23:00 10/17/18 00:00 10/17/18 01:00 Temperature 98.5 F Pulse Rate 78 88 70 Respiratory Rate 18 Blood Pressure 136/74 Pulse Oximetry 98 10/17/18 02:00 10/17/18 03:00 10/17/18 04:00 Temperature 98.8 F Pulse Rate 70 77 77 Respiratory Rate 14 Blood Pressure 121/51 L Pulse Oximetry 96 10/17/18 05:00 10/17/18 06:00 10/17/18 07:00 Temperature 97.7 F Pulse Rate 79 79 73 Respiratory Rate 16 Blood Pressure 145/74 H Pulse Oximetry 95 10/17/18 08:00 10/17/18 09:00 10/17/18 10:00 Temperature Pulse Rate 82 78 70 Respiratory Rate Blood Pressure Pulse Oximetry 95 10/17/18 11:00 10/17/18 12:16 10/17/18 15:00 Temperature 97.7 F 97.8 F Pulse Rate 76 74 Respiratory Rate 16 16 Blood Pressure 153/72 H 134/63 Pulse Oximetry 95 97 95 Intake & Output 10/16/18 10/17/18 10/17/18 18:59 06:59 18:59 Intake Total 480 / 480 240 / 240 250 / 250 Output Total 1100 / 1100 550 / 550 Balance -620 / -620 -310 / -310 250 / 250 Weight 89.1 kg Intake: IV 250 / 250 Heparin/D5W 25,000 U/250 mL 25, 250 / 250 000 unit In 250 ml @ Per Protocol IV.CONT TITRATE PRN Rx #:[id number] Oral 480 / 480 240 / 240 Output: Urine 1100 / 1100 550 / 550 Narrative: GENERAL: Awake alert and oriented x3 talkative and cooperative no acute distress at this time SKIN: Warm and dry. HEAD: Atraumatic. Normocephalic. EYES: Pupils equal and round. No scleral icterus. No injection or drainage. ENT: No nasal bleeding or discharge. Mucous membranes pink and moist. EOMI wears glasses NECK: Trachea midline. No JVD. Supple CARDIOVASCULAR: Regular rate and rhythm. S1-S2 no S3 or S4 RESPIRATORY: No accessory muscle use. Clear to auscultation. Breath sounds equal bilaterally. GASTROINTESTINAL: Abdomen soft, non-tender, nondistended. Hepatic and splenic margins not palpable. MUSCULOSKELETAL: Extremities without clubbing, cyanosis, or edema. No obvious deformities. NEUROLOGICAL: Awake and alert. No obvious cranial nerve deficits. Motor grossly within normal limits. Five out of 5 muscle strength in the arms and legs. Normal speech. PSYCHIATRIC: Appropriate mood and affect; insight and judgment normal. Results 10/17/18 04:19 10/17/18 04:19 Cardiac Enzymes 10/16/18 10/16/18 10/16/18 Range/Units 06:09 06:09 07:20 AST 30 (15-37) U/L CK-MB (CK-2) 2.3 (0.5-3.6) ng/mL Troponin I 0.03 (0.02-0.05) ng/mL B-Natriuretic Peptide 181 H (0-100) pg/mL Coagulation 10/16/18 10/16/18 10/16/18 Range/Units 06:09 06:09 21:09 PT 10.0 (9.8-11.6) sec APTT 30.7 48.4 H D (23.4-31.7) sec B-Natriuretic Peptide 181 H (0-100) pg/mL 10/17/18 Range/Units 02:57 PT (9.8-11.6) sec APTT 57.3 H (23.4-31.7) sec B-Natriuretic Peptide (0-100) pg/mL CBC 10/16/18 10/17/18 Range/Units 06:09 04:19 WBC 10.4 8.4 (4.0-11.0) th/mm3 RBC 5.22 4.60 (4.50-5.90) mil/mm3 Hgb 16.3 15.1 (13.0-17.0) gm/dL Hct 49.1 44.6 (39.0-51.0) % Plt Count 147 L 134 L (150-450) th/mm3 Neut # (Auto) 5.7 4.4 (1.8-7.7) th/mm3 Lymph # (Auto) 3.4 2.9 (1.0-4.8) th/mm3 [place] # (Auto) 1.1 H 0.9 (0.0-0.9) th/mm3 Eos # (Auto) 0.1 0.1 (0.0-0.4) th/mm3 Baso # (Auto) 0.1 0.0 (0.0-0.2) th/mm3 Comprehensive Metabolic Panel 10/16/18 10/16/18 10/16/18 Range/Units 06:09 07:20 07:20 Sodium 140 (136-145) meq/L Potassium 4.4 (3.5-5.1) meq/L Chloride 111 H (98-107) meq/L Carbon Dioxide 21.8 (21.0-32.0) meq/L BUN 18 (7-18) mg/dL Creatinine 1.31 H (0.60-1.30) mg/dL Calcium 9.2 8.8 (8.5-10.1) mg/dL Direct Bilirubin 0.2 (0.0-0.2) mg/dL Indirect Bilirubin 0.4 (0.0-0.8) mg/dL AST 30 (15-37) U/L ALT 41 (12-78) U/L Alkaline Phosphatase 73 (45-117) U/L Total Protein 7.5 (6.4-8.2) g/dL Albumin 3.6 (3.4-5.0) g/dL 10/17/18 Range/Units 04:19 Sodium 137 (136-145) meq/L Potassium 4.1 (3.5-5.1) meq/L Chloride 106 (98-107) meq/L Carbon Dioxide 23.2 (21.0-32.0) meq/L BUN 23 H (7-18) mg/dL Creatinine 1.48 H (0.60-1.30) mg/dL Calcium 9.2 (8.5-10.1) mg/dL Direct Bilirubin (0.0-0.2) mg/dL Indirect Bilirubin (0.0-0.8) mg/dL AST (15-37) U/L ALT (12-78) U/L Alkaline Phosphatase (45-117) U/L Total Protein (6.4-8.2) g/dL Albumin (3.4-5.0) g/dL Intake and Output 10/17/18 10/17/18 10/17/18 06:59 14:59 22:59 Intake Total 240 / 240 250 / 250 Output Total 550 / 550 Balance -310 / -310 250 / 250 Intake: IV 250 / 250 Heparin/D5W 25,000 U/250 mL 25, 250 / 250 000 unit In 250 ml @ Per Protocol IV.CONT TITRATE PRN Rx #:[id number] Oral 240 / 240 Output: Urine 550 / 550 Other: Weight 89.1 kg - Imaging and Cardiology Imaging: Impressions Chest X-Ray 10/16/18 06:06 CONCLUSION: No active disease. Carotid Doppler Study 10/16/18 10:31 CONCLUSION: 1. Right Internal Carotid Artery: Moderate atherosclerotic plaquing at the bifurcation. No hemodynamically significant stenosis identified in the internal carotid circulation. 2. Left Internal Carotid Artery: Moderate atherosclerotic plaquing at the bifurcation. No hemodynamically significant stenosis identified in the internal carotid circulation. 3. The exam does demonstrate elevated velocities within the origin of the external carotid circulation bilaterally. 4. There is antegrade flow within both vertebral arteries. Lower Extremity Ultrasound 10/16/18 10:31 CONCLUSION: 1. Venous mapping as above. Venous Doppler Study 10/16/18 10:31 CONCLUSION: 1. No DVT identified. Assessment and Plan - Assessment (1) Unstable angina Code(s): I20.0 - Unstable angina Status: Acute (2) CAD (coronary artery disease), [place] coronary artery Code(s): I25.10 - Atherosclerotic heart disease of [place] coronary artery without angina pectoris Status: Acute (3) Ischemic cardiomyopathy Code(s): I25.5 - Ischemic cardiomyopathy Status: Acute - Plan 1) CAD/[place] Multi-vessel CAD For CABG, planned for tomorrow 2) ICM EF 35-40% Better than previous cardiomyopathy 3) Con't heparin drip Off before surgery Progress Note: Quality - AMI Clinical Trial Participant: No
[2018-10-18 08:06] LABS: Baso % (Auto) 0.4 % (0.0-2.0); Eos # (Auto) 0.1 th/mm3 (0.0-0.4); Hematocrit 42.1 % (39.0-51.0); Hemoglobin 14.2 gm/dL (13.0-17.0); Lymph # (Auto) 2.1 th/mm3 (1.0-4.8); Lymph % (Auto) 28.6 % (9.0-44.0); Mean Corpuscular HGB Conc 33.7 % (32.0-36.0); Mean Corpuscular Hemoglobin 32.8 pg (27.0-34.0); Mean Corpuscular Volume 97.6 fL (80.0-100.0); Mean Platelet Volume 9.7 fL (7.0-11.0); Mono # (Auto) 0.9 th/mm3 (0.0-0.9); Mono % (Auto) 12.2 % (0.0-8.0); Neut # (Auto) 4.1 th/mm3 (1.8-7.7); Neut % (Auto) 56.8 % (16.0-70.0); Platelet Count 123 th/mm3 (150-450); Red Blood Count 4.31 mil/mm3 (4.50-5.90); Red Cell Distribution Width 13.3 % (11.6-17.2); White Blood Count 7.3 th/mm3 (4.0-11.0)
[2018-10-18 08:12] LABS: Activated Partial Thrombo Time 58.3 sec (23.4-31.7); INR 1.1 Ratio
[2018-10-18 08:23] LABS: Albumin 3.5 g/dL (3.4-5.0); Anion Gap 6 meq/L (5-15); Aspartate Aminotransferase 38 U/L (15-37); Blood Urea Nitrogen 24 mg/dL (7-18); Calcium 8.9 mg/dL (8.5-10.1); Carbon Dioxide 25.4 meq/L (21.0-32.0); Chloride 106 meq/L (98-107); Glomerular Filtration Rate 50 mL/min (>89); Glucose,Random 99 mg/dL (74-106); Magnesium 2.3 mg/dL (1.5-2.5); Potassium 4.4 meq/L (3.5-5.1); Sodium 137 meq/L (136-145)
[2018-10-18 08:32] LABS: Alanine Aminotransferase 41 U/L (12-78); Alkaline Phosphatase 65 U/L (45-117); Free T4 (Free Thyroxine) 1.22 ng/dL (0.76-1.46); Phosphorus 3.6 mg/dL (2.5-4.9); Total Protein 7.6 g/dL (6.4-8.2)
[2018-10-18] MEDS: Furosemide 20 MG Tablet PO SCH (09:00)
[2018-10-18] MEDS: Carvedilol 12.5 MG Tablet PO SCH (09:00)
[2018-10-18] MEDS ORDERED: Chlorhexidine Gluconate 2% 1 Pack (2 Cloths) TOPICAL ONE (09:15)
[2018-10-18] MEDS ORDERED: Sodium Chlor 0.9% Inj 500 ML IV.CONT ONE (09:15)
[2018-10-18] MEDS ORDERED: Metoprolol Tartrate 25 MG Tablet PO ONE (09:15)
--- NOTE | 2018-10-18 11:03 | P.PNIM ---
Subjective Interval history: This patient is a 63 y/o Male with htn, dyslipidemia, history of tobacco abuse and Systolic chf with an ef of 20%. Patient presented to our ED with complaints of left sided chest pain that occured early this morning. The chest pain was constant and was not improving so he came into the ED for evaluation. He denies any fevers or chills. No abd pain. He did have some sob with exertion and worsening of the chest pain on exertion. He has had similar episodes to this over the past few weeks. pmh HTN, dyslipidemia, systolic chf ef 20% surg hx none family history HTN social hx extensive tobacco smoking hx 10-17 PATIENT IS SCHEDULED TO GO FOR CABG TOMORROW PER [facility] POSITIVE C[facility]IAC CATH PER DR PATEL NO CHEST PAIN, NO NAUSEA, NO VOMITING REMAINS ON HEPARIN DRIP AT THIS TIME A.m. labs Discussed with patient and RN 10-18 PATIENT IS SCHEDULED TO GO FOR CABG LATER TODAY DW RN AND PT AM LABS NO NEW COMPLAINTS NO CP NO SOB Physical Exam Vital signs: Vital Signs 10/17/18 12:00 10/17/18 12:16 10/17/18 13:00 Temperature Pulse Rate 72 78 Respiratory Rate Blood Pressure Pulse Oximetry 97 10/17/18 14:00 10/17/18 15:00 10/17/18 16:00 Temperature 97.8 F Pulse Rate 70 90 78 Respiratory Rate 16 Blood Pressure 134/63 Pulse Oximetry 95 10/17/18 17:00 10/17/18 18:00 10/17/18 19:00 Temperature 98.8 F Pulse Rate 74 90 80 Respiratory Rate 16 Blood Pressure 140/64 Pulse Oximetry 99 10/17/18 20:00 10/17/18 21:00 10/17/18 22:00 Temperature Pulse Rate 70 74 76 Respiratory Rate Blood Pressure Pulse Oximetry 98 10/17/18 23:00 10/18/18 00:00 10/18/18 01:00 Temperature 98.3 F Pulse Rate 73 64 82 Respiratory Rate 18 Blood Pressure 121/55 L Pulse Oximetry 98 10/18/18 02:00 10/18/18 03:00 10/18/18 04:00 Temperature 98.6 F Pulse Rate 66 78 64 Respiratory Rate 18 Blood Pressure 132/63 Pulse Oximetry 97 10/18/18 05:00 10/18/18 06:00 10/18/18 07:00 Temperature 98.0 F Pulse Rate 66 81 71 Respiratory Rate 16 Blood Pressure 134/65 Pulse Oximetry 96 10/18/18 08:00 10/18/18 09:00 10/18/18 10:00 Temperature Pulse Rate 62 92 H 80 Respiratory Rate Blood Pressure Pulse Oximetry 96 Intake & Output 10/17/18 10/18/18 10/18/18 18:59 06:59 18:59 Intake Total 610 / 610 240 / 240 150 / 150 Output Total 450 / 450 Balance 610 / 610 -210 / -210 150 / 150 Weight 88.5 kg Intake: IV 250 / 250 150 / 150 Heparin/D5W 25,000 U/250 mL 25, 250 / 250 150 / 150 000 unit In 250 ml @ Per Protocol IV.CONT TITRATE PRN Rx #:[id number] Oral 360 / 360 240 / 240 Output: Urine 450 / 450 Other: # Voids 6 Narrative: GENERAL: Awake alert and oriented x3 talkative and cooperative no acute distress at this time SKIN: Warm and dry. HEAD: Atraumatic. Normocephalic. EYES: Pupils equal and round. No scleral icterus. No injection or drainage. ENT: No nasal bleeding or discharge. Mucous membranes pink and moist. EOMI wears glasses NECK: Trachea midline. No JVD. Supple CARDIOVASCULAR: Regular rate and rhythm. S1-S2 no S3 or S4 RESPIRATORY: No accessory muscle use. Clear to auscultation. Breath sounds equal bilaterally. GASTROINTESTINAL: Abdomen soft, non-tender, nondistended. Hepatic and splenic margins not palpable. MUSCULOSKELETAL: Extremities without clubbing, cyanosis, or edema. No obvious deformities. NEUROLOGICAL: Awake and alert. No obvious cranial nerve deficits. Motor grossly within normal limits. Five out of 5 muscle strength in the arms and legs. Normal speech. PSYCHIATRIC: Appropriate mood and affect; insight and judgment normal. Results - Labs CBC & Chem 7: 10/18/18 07:45 10/18/18 07:45 Laboratory Results - last 24 hr 10/18/18 10/18/18 10/18/18 07:45 07:45 07:45 WBC 7.3 RBC 4.31 L Hgb 14.2 Hct 42.1 MCV 97.6 MCH 32.8 MCHC 33.7 RDW 13.3 Plt Count 123 L MPV 9.7 Neut % (Auto) 56.8 Lymph % (Auto) 28.6 [place] % (Auto) 12.2 H Eos % (Auto) 2.0 Baso % (Auto) 0.4 Neut # (Auto) 4.1 Lymph # (Auto) 2.1 [place] # (Auto) 0.9 Eos # (Auto) 0.1 Baso # (Auto) 0.0 WBC Differential . Differential Comment Auto diff final PT INR APTT Sodium 137 Potassium 4.4 Chloride 106 Carbon Dioxide 25.4 Anion Gap 6 BUN 24 H Creatinine 1.42 H Estimated GFR 50 L Random Glucose 99 Calcium 8.9 Phosphorus 3.6 Magnesium 2.3 Total Bilirubin 0.7 AST 38 H ALT 41 Alkaline Phosphatase 65 Total Protein 7.6 Albumin 3.5 TSH 3.180 Free T4 1.22 Blood Type O Negative Antibody Screen Negative MTS Gel Crossmatch See Detail 10/18/18 07:45 WBC RBC Hgb Hct MCV MCH MCHC RDW Plt Count MPV Neut % (Auto) Lymph % (Auto) [place] % (Auto) Eos % (Auto) Baso % (Auto) Neut # (Auto) Lymph # (Auto) [place] # (Auto) Eos # (Auto) Baso # (Auto) WBC Differential Differential Comment PT 11.0 INR 1.1 APTT 58.3 H Sodium Potassium Chloride Carbon Dioxide Anion Gap BUN Creatinine Estimated GFR Random Glucose Calcium Phosphorus Magnesium Total Bilirubin AST ALT Alkaline Phosphatase Total Protein Albumin TSH Free T4 Blood Type Antibody Screen MTS Gel Crossmatch - Imaging ITS Impressions Chest X-Ray 10/16/18 06:06 CONCLUSION: No active disease. Carotid Doppler Study 10/16/18 10:31 CONCLUSION: 1. Right Internal Carotid Artery: Moderate atherosclerotic plaquing at the bifurcation. No hemodynamically significant stenosis identified in the internal carotid circulation. 2. Left Internal Carotid Artery: Moderate atherosclerotic plaquing at the bifurcation. No hemodynamically significant stenosis identified in the internal carotid circulation. 3. The exam does demonstrate elevated velocities within the origin of the external carotid circulation bilaterally. 4. There is antegrade flow within both vertebral arteries. Lower Extremity Ultrasound 10/16/18 10:31 CONCLUSION: 1. Venous mapping as above. Venous Doppler Study 10/16/18 10:31 CONCLUSION: 1. No DVT identified. - Procedures 10/16/2018 PROCEDURES: Left heart catheterization, coronary angiogram, ultrasound-guided access, moderate sedation 30 minutes. PREPROCEDURE DIAGNOSES: EKG changes concerning for possible ST elevation myocardial infarction, chest pain concerning for coronary insufficiency. POSTPROCEDURE DIAGNOSES: Infarction of the anterior and inferior wall with a chronic total occlusions, ischemic cardiomyopathy. CONTRAST USED: 80 mL. FLUOROSCOPY: 2.6 minutes. MODERATE SEDATION: 30 minutes. FRAILTY SCORE: 4. ESTIMATED BLOOD LOSS: 10 mL. PROCEDURAL SUMMARY: Capo Hernandez is a 63-year-old male who presented to [facility] Emergency Room this morning due to chest pain. He states that he has had chest pain on and off for the past week or so. He was found to have previously had an ejection fraction of 20% and recommended an ischemic evaluation in February, but refused at that time. On arrival, an EKG was done and there was concern for some minimal ST elevation, although not much different from his previous EKG in February. He was sent to the equipment operator/laborer/supervisor due to concern for ST elevations. Upon leaving the Emergency Room in [place], his chest pain was now gone. On arrival here, he continued to not have chest pain. I discussed with him the need for cardiac catheterization due to his previous cardiomyopathy including risks, benefits, and alternatives; and he agreed to proceed with the case. He was brought to the lab and prepped in the usual sterile fashion. The right femoral artery was accessed using a modified Seldinger technique with ultrasound guidance and placement of a 6-Romansh sheath. This was easily aspirated and flushed. A JR4 was advanced over a J-wire to the ascending aorta and across the aortic valve for measurement of left ventricular pressure. This was pulled back across the aortic valve showing no significant gradient of aortic stenosis. JR4 was used for selective angiography of the right coronary artery system. This was exchanged out for a JL4, which was used for selective angiography of the left coronary artery system. JL4 was removed over a J wire. ACT was checked and was 174 and so sheath was pulled and pressure held for hemostasis. The patient left the equipment operator/laborer/supervisor cardiovascularly stable. FINDINGS: LEFT MAIN: Moderate-sized vessel, which distally tapers to 70%-80%. It trifurcates into an LAD, ramus, and circumflex. LAD: There is 80% disease at the ostial portion with 100% in the mid portion. There are [id number]-wy-rytc collaterals which supply the mid and distal LAD as well as the diagonal. RAMUS: Moderate-sized vessel, which has a 60% lesion of the proximal portion and diffusely 30% disease throughout. LEFT CIRCUMFLEX: Moderate-sized vessel with 30% disease throughout. It supplies 2 obtuse marginals with no significant disease. RCA: It was 100% occluded in the mid portion with aubyd-os-wzeag and oilg-pl-rjssk collaterals. LVEDP: 10. IMPRESSION: 1. Possible ST elevation myocardial infarction, more likely EKG changes consistent with previous anterior septal myocardial infarction. 2. Multivessel coronary artery disease with 100% occlusion of the right coronary artery as well as the left anterior descending and significant left main disease. 3. Ischemic cardiomyopathy with a previous ejection fraction of 20%. RECOMMENDATIONS: 1. Capo Hernandez presented as a STEMI alert, but ultimately his EKG looks similar to previous, more likely that this is an old anterior septal myocardial infarction 2. During his cardiac catheterization, he was found to have multivessel disease with occlusions of the RCA and LAD, which appeared to be chronic in nature. Upon arrival to the equipment operator/laborer/supervisor, he was no longer having chest pain, which would not be consistent with an acute STEMI presentation. 3. This is probably what led to his ischemic cardiomyopathy. 4. He will be admitted and seen by CT surgery for further consideration of coronary artery bypass grafting. 5. We will plan on placing him on a heparin drip 6 hours after sheath was pulled. 6. We will recheck an echo to further evaluate his overall ejection fraction. Thank you for allowing me to see Capo Hernandez. If there are any questions, please do not hesitate to call. DO YAQUELIN Carroll/marcio , 08:05 AM , 08:15 AM Assessment and Plan - Plan This patient is a 63 y/o Male with htn, dyslipidemia, history of tobacco abuse and Systolic chf with an ef of 20%. Patient presented to our ED with complaints of left sided chest pain that occured early this morning. The chest pain was constant and was not improving so he came into the ED for evaluation. He denies any fevers or chills. No abd pain. He did have some sob with exertion and worsening of the chest pain on exertion. He has had similar episodes to this over the past few weeks. 1. Chest pain concern for ACS 2. Coronary artery disease 3. Dyslipidemia 4 HTN Patient presented with chest pain EKG initially showed NSR with st elevations in III and Avf. Cardiology was immediately consulted Recommendations were for the pt to undergo cardiac cath Patient started on asa, statin, bb, heparin gtt Cardiac cath showed significant multivessel disease Plan is for the patient to undergo CABG this . Continue to monitor on telemetry. Continue current medications. DVT prophylaxis, pt currently on Heparin gtt. A.m. labs TO GO FOR CABG TODAY 10-18 Code Status: FULL CODE Discussed Condition With: RN AND PATIENT Discharge Planning: Once cleared by cardiovascular surgery after he has had surgery and is doing well Progress Note: Quality - AMI Clinical Trial Participant: No
--- NOTE | 2018-10-18 12:56 | P.PNCV ---
- Note Subjective/Hospital Course: A 63-year-old male transferred from [facility] secondary to chest pain. Chest pain apparently starts in his hands, moves of his arms and then comes to retrosternal chest pain. He has had this chest pain off and on for the past few days to a week, which last 2-5 minutes. More noticeable with exertion, relieved with rest. He was previously seen in 02/2018 and was found to have a very low ejection fraction of 20%. He was recommended an ischemic workup, but then he was concerned about insurance, which he is now under Medicaid plan. There was initially concern for ST elevation; however, STEMI was ruled out. He had negative troponins. He underwent cardiac catheterization by Dr. Butler today , which showed ejection fraction of 20% by his prior echo 03/2018, left main disease of 80%, the proximal LAD 70%, the mid distal LAD 100%, the diagonal 100% , the RCA 100%, the ramus 60%. We were consulted to evaluate for coronary artery bypass graft. Repeat echo EF 35-40% PAST MEDICAL HISTORY: Includes ischemic cardiomyopathy, hypertension, hyperlipidemia, history of hepatitis, which was apparently treated with medication, tobacco abuse. The patient has been smoking since the age of 16. Now, he is down to half a pack. He was up to a pack per day. The patient has chronic kidney disease with GFR 55. 10/17 pt pain free, scheduled for surgery second case in am Objective: Vital Signs - 24 hr 10/17/18 13:00 10/17/18 14:00 10/17/18 15:00 Temperature 97.8 F Pulse Rate 78 70 90 Respiratory Rate 16 Blood Pressure 134/63 Pulse Oximetry 95 10/17/18 16:00 10/17/18 17:00 10/17/18 18:00 Temperature Pulse Rate 78 74 90 Respiratory Rate Blood Pressure Pulse Oximetry 10/17/18 19:00 10/17/18 20:00 10/17/18 21:00 Temperature 98.8 F Pulse Rate 80 70 74 Respiratory Rate 16 Blood Pressure 140/64 Pulse Oximetry 99 98 10/17/18 22:00 10/17/18 23:00 10/18/18 00:00 Temperature 98.3 F Pulse Rate 76 73 64 Respiratory Rate 18 Blood Pressure 121/55 L Pulse Oximetry 98 10/18/18 01:00 10/18/18 02:00 10/18/18 03:00 Temperature 98.6 F Pulse Rate 82 66 78 Respiratory Rate 18 Blood Pressure 132/63 Pulse Oximetry 97 10/18/18 04:00 10/18/18 05:00 10/18/18 06:00 Temperature Pulse Rate 64 66 81 Respiratory Rate Blood Pressure Pulse Oximetry 10/18/18 07:00 10/18/18 08:00 10/18/18 09:00 Temperature 98.0 F Pulse Rate 71 62 92 H Respiratory Rate 16 Blood Pressure 134/65 Pulse Oximetry 96 96 10/18/18 10:00 10/18/18 11:00 Temperature 98.3 F Pulse Rate 80 74 Respiratory Rate 16 Blood Pressure 156/80 H Pulse Oximetry 99 Labs: Laboratory Results - last 12 hr 10/18/18 10/18/18 10/18/18 07:45 07:45 07:45 WBC 7.3 RBC 4.31 L Hgb 14.2 Hct 42.1 MCV 97.6 MCH 32.8 MCHC 33.7 RDW 13.3 Plt Count 123 L MPV 9.7 Neut % (Auto) 56.8 Lymph % (Auto) 28.6 [place] % (Auto) 12.2 H Eos % (Auto) 2.0 Baso % (Auto) 0.4 Neut # (Auto) 4.1 Lymph # (Auto) 2.1 [place] # (Auto) 0.9 Eos # (Auto) 0.1 Baso # (Auto) 0.0 WBC Differential . Differential Comment Auto diff final PT INR APTT Sodium 137 Potassium 4.4 Chloride 106 Carbon Dioxide 25.4 Anion Gap 6 BUN 24 H Creatinine 1.42 H Estimated GFR 50 L Random Glucose 99 Calcium 8.9 Phosphorus 3.6 Magnesium 2.3 Total Bilirubin 0.7 AST 38 H ALT 41 Alkaline Phosphatase 65 Total Protein 7.6 Albumin 3.5 TSH 3.180 Free T4 1.22 Blood Type O Negative Antibody Screen Negative MTS Gel Crossmatch See Detail 10/18/18 07:45 WBC RBC Hgb Hct MCV MCH MCHC RDW Plt Count MPV Neut % (Auto) Lymph % (Auto) [place] % (Auto) Eos % (Auto) Baso % (Auto) Neut # (Auto) Lymph # (Auto) [place] # (Auto) Eos # (Auto) Baso # (Auto) WBC Differential Differential Comment PT 11.0 INR 1.1 APTT 58.3 H Sodium Potassium Chloride Carbon Dioxide Anion Gap BUN Creatinine Estimated GFR Random Glucose Calcium Phosphorus Magnesium Total Bilirubin AST ALT Alkaline Phosphatase Total Protein Albumin TSH Free T4 Blood Type Antibody Screen MTS Gel Crossmatch Result Diagrams: 10/18/18 07:45 10/18/18 07:45
[2018-10-18] MEDS ORDERED: MethylPREDNISolone Sod Succinate Inj 125 MG/2 ML Vial ONE (13:09)
[2018-10-18] MEDS ORDERED: Heparin - SQ 10,000 UNITS/ML Vial ONE ×3 (13:09→13:10)
[2018-10-18] MEDS ORDERED: fentaNYL Citrate Inj 250 MCG/5 ML Ampul ONE (13:29)
[2018-10-18] MEDS ORDERED: Midazolam Inj 5 MG/ML 1 ML Vial ONE (13:29)
[2018-10-18] MEDS ORDERED: Cardioplegic Irr Soln 2,000 ML IRRIGATION ONE (13:45)
[2018-10-18] MEDS ORDERED: Potassium Chloride Inj 40 MEQ/20 ML Vial ONE (13:45)
[2018-10-18] MEDS ORDERED: Albumin Human 25% Inj 50 ML IV.SIG ONE (13:45)
[2018-10-18] MEDS ORDERED: Heparin 10,000 UNITS/10 ML Vial (for IV use) ONE (13:46)
[2018-10-18] MEDS ORDERED: Calcium Chloride Inj 1 GM/10 ML Syringe ONE (13:47)
[2018-10-18] MEDS ORDERED: ceFAZolin 1 GM Premix Inj 2 GM/100 ML FROZ.PIGGY IV.SIG ONE (14:47)
--- NOTE | 2018-10-18 15:33 | P.DCO ---
- Diagnosis (1) CAD (coronary artery disease), [place] coronary artery Status: Acute (2) Ischemic cardiomyopathy Status: Chronic (3) S/P CABG (coronary artery bypass graft) Status: Acute (4) Unstable angina Status: Acute - Home Health Nursing Order: Medical education, Signs/symptoms of disease process, Wound care and dressing changes, Nursing assessment with vital signs Instructions: Heart and Vascular Surgery patients *Special attention to sternal dressing Mandatory frequency Assess and evaluation, 4 days in a row The next week 3X week 2 times a week for 4 weeks 1 time a week for 5 weeks Schedule Heart and Vascular patients for full 60 day certification period Initial visit Review Open Heart Surgery Discharge Instructions (Sternal precautions, Activity, Elastic hose, Incision care, Driving, Incentive spirometry, Smoking, [place], Work and other) Need Betadine to paint incision Medication reconciliation Importance of follow up care/ check on appointments Make calendar record temperature daily When to call [facility] at Home nurse, review instructions, phone list Incentive Spirometry, demonstration Visit 1- Begin discharge instruction for patient family and/ or caregiver using teach back method- Signs and symptoms of infection Disease characteristics Medicines and side effects Foods and nutrition/ appetite Infection control/ hand washing/ hygiene Visit 2- Continue teaching Discharge instructions- include additional information on smoking cessation , sternal dressing (sternal vac) Visit 3- Continue teaching- Cough and deep breathing, incision monitoring. Choose my plate Visit 4- Continue teaching- Discuss limitations Discuss how they are feeling Discuss progress toward goals Remaining visits- continue teaching and monitoring For any questions please call : Monday 8am-5pm Heart & Vascular Surgery Office ( Dr. Araujo & Dr. Williamson), After Hours / Nights (5pm -8am) Weekends and Holidays Please call [facility] ([facility]) Charge Nurse PREVENA Single Use Negative Wound Therapy System Caregiver Instruction Sheet 1. A Prevena dressing system was applied to the chest incision during surgery , to promote wound healing. It works via a suction device (negative pressure wound therapy) to remove low to moderate levels of exudate (drainage) and infectious materials. We recommend that the device stay in place for up to seven days, from day of surgery. 2. Day of Surgery___10/18/18 Day of Removal ___10/25/18 3. The dressing should only be removed by a health primary care provider. Please arrange removal of device to coincide with Home Health visit and or with Nursing staff at Rehab 4. If skin reddening or irritation of skin occurs, or excessive drainage, please notify the Cardiovascular Surgeons office at [phone]. 5. Light showering is permissible; however the pump should be disconnected and placed in safe location, where it will not get wet. The dressing should not be exposed to direct spray or submerged in water. No bath tub / shower only. Ensure the end of the tubing attached to the dressing is facing down so that water does not enter the top of the tube. 6. To remove Prevena dressing: press purple button to turn off device / remove the suction. Then disconnect the tubing from the pump. The fixation strips should be stretched away from the skin and the dressing lifted at one corner and peeled back until it has been fully removed. 7. After removal, it is ok to shower daily using liquid dial soap and clean wash cloth, rinse and pat dry, and leave incision open to air dry. For any concerns regarding Prevena dressing, and or wounds, please contact Eden Peters, patient navigator at [phone] or notify the Cardiovascular Surgeons office at [phone]. Incentive spirometry Q1 hr x 10, while awake, also use acapella device hourly whole awake Sternal Breast Bone Precautions: NO pushing or pulling, ( pt must use sternal pillow to support chest with all activities and with coughing ( takes up to 3 months breast bone to heal ) Daily incision care: ok to shower daily, no tub bath. Wash all incisions with liquid dial soap, clean wash cloth to each site, rinse and pat dry. Observe for any signs of infection, such as drainage which is dark yellow, [place], green or foul smelling. Immediately report to the surgeon any drainage from the chest incision, or legs, and for any abnormal drainage from the chest tube sites. Notify surgeon if any temp >101.5 degrees F. When specialty dressing removed/ or if you do not have one, continue to shower daily as above, then rinse and pat incision dry and paint with betadine daily x 5 days. Allow steri strips to fall off if you have any. Avoid lotions, creams, salves, oils, etc. for the first month Please see attached forms for additional instructions regarding post Open Heart specialty wound vacuum dressings. SON or Prevena , Dressing to be removed by Nursing staff on For Dr. Williamson patients , please obtain CBC, BMP, PA & Lat CXR in 2 weeks, results to Dr. Williamson ( prescription will be given) ( ) (Tele: [phone]) , F/U appointment: as per DC instructions: PCP in 2 weeks, CV surgeon 2 weeks, Finished Cigar Maker 3-4 weeks For any questions regarding incisions/ dressing / meds / post op care or above Symptoms, Monday 8am-5pm Heart & Vascular Surgery Office ( Dr. Araujo & Dr. Williamson), After Hours / Nights (5pm -8am) Weekends and Holidays Please call [facility] ([facility]) Charge Nurse - Case Management Consult Case Management Consult-Home Health: Yes - Certification I have seen patient Capo Hernandez on 10/18/18. My clinical findings support the need for the requested home health care services because: Deconditioned with increased weakness I certify that my clinical findings support that this patient is homebound because: Post-op weakness
--- NOTE | 2018-10-18 17:42 | P.PNCA ---
Subjective Interval history: No events overnight For surgery today Medications and Allergies Active Medications: Active Medications Aspirin (Aspirin Chew) 81 mg PO DAILY [facility] Last Admin: 10/18/18 09:00 Dose: 81 mg Atorvastatin Calcium (Lipitor) 40 mg PO DAILY [facility] Last Admin: 10/18/18 09:00 Dose: 40 mg Carvedilol (Coreg) 12.5 mg PO BID [facility] Last Admin: 10/18/18 09:00 Dose: 12.5 mg Chlorhexidine Gluconate (Hibiclens 4% Topical) 1 applicatio TOPICAL BULB TESTER [facility] Stop: 10/22/18 10:31 Sodium Chloride 77.5 ml/Papaverine HCl 60 mg/Nitroglycerin 100 mcg/Diltiazem HCl 100 mg 0 ml IRRIGATION BULB TESTER [facility] Stop: 10/22/18 10:31 Sodium Chloride 500 ml/ (Cefazolin Sodium 500 mg) 0 ml IRRIGATION BULB TESTER [facility] Stop: 10/22/18 10:32 Dextrose (D50w Vial) 50 ml IV.PUSH UNSCH PRN PRN Reason: PER HYPOGLYCEMIA PROTOCOL Furosemide (Lasix) 20 mg PO DAILY [facility] Last Admin: 10/18/18 09:00 Dose: 20 mg Heparin Sodium/Dextrose (Heparin/D5w 25,000 U/250 Ml) 25,000 unit in 250 mls @ 0 mls/hr IV.CONT TITRATE PRN; Protocol PRN Reason: Per Protocol Last Titration: 10/18/18 09:04 Dose: Infused Cefazolin Sodium 2,000 mg/ (Sodium Chloride) 100 mls @ 200 mls/hr IV.SIG BULB TESTER [facility] Stop: 10/22/18 10:32 Insulin Human Regular 100 unit (/ Sodium Chloride) 100 mls @ 3 mls/hr IV.CONT TITRATE PRN; Protocol PRN Reason: See Protocol Lactated Ringer's (Lr 1000 Ml Inj) 1,000 mls @ 30 mls/hr IV.CONT .Q24H ONE Stop: 10/19/18 09:14 Sodium Chloride (Ns Inj) 500 mls @ 30 mls/hr IV.CONT .[id number] ONE Stop: 10/19/18 01:54 Sodium Chloride (Ns Flush) 2 ml IV.FLUSH BID [facility] Last Admin: 10/18/18 09:00 Dose: 2 ml Sodium Chloride (Ns Flush) 2 ml IV.FLUSH PRN PRN PRN Reason: FLUSH AFTER USING IV ACCESS Allergies Allergy/AdvReac Type Severity Reaction Status Date / Time No Known Allergies Allergy Verified 10/16/18 06:46 Home Medications Medication Instructions Recorded Confirmed Type atorvastatin 40 mg PO DAILY 10/16/18 10/16/18 History carvedilol 12.5 mg PO BID 10/16/18 10/16/18 History furosemide 20 mg PO DAILY 10/16/18 10/16/18 History lisinopril 40 mg PO DAILY 10/16/18 10/16/18 History Physical Exam Vital signs: Vital Signs 10/17/18 18:00 10/17/18 19:00 10/17/18 20:00 Temperature 98.8 F Pulse Rate 90 80 70 Respiratory Rate 16 Blood Pressure 140/64 Pulse Oximetry 99 98 10/17/18 21:00 10/17/18 22:00 10/17/18 23:00 Temperature 98.3 F Pulse Rate 74 76 73 Respiratory Rate 18 Blood Pressure 121/55 L Pulse Oximetry 98 10/18/18 00:00 10/18/18 01:00 10/18/18 02:00 Temperature Pulse Rate 64 82 66 Respiratory Rate Blood Pressure Pulse Oximetry 10/18/18 03:00 10/18/18 04:00 10/18/18 05:00 Temperature 98.6 F Pulse Rate 78 64 66 Respiratory Rate 18 Blood Pressure 132/63 Pulse Oximetry 97 10/18/18 06:00 10/18/18 07:00 10/18/18 08:00 Temperature 98.0 F Pulse Rate 81 71 62 Respiratory Rate 16 Blood Pressure 134/65 Pulse Oximetry 96 96 10/18/18 09:00 10/18/18 10:00 10/18/18 11:00 Temperature 98.3 F Pulse Rate 92 H 80 74 Respiratory Rate 16 Blood Pressure 156/80 H Pulse Oximetry 99 Intake & Output 10/17/18 10/18/18 10/18/18 18:59 06:59 18:59 Intake Total 610 / 610 240 / 240 150 / 150 Output Total 450 / 450 Balance 610 / 610 -210 / -210 150 / 150 Weight 88.5 kg Intake: IV 250 / 250 150 / 150 Heparin/D5W 25,000 U/250 mL 25, 250 / 250 150 / 150 000 unit In 250 ml @ Per Protocol IV.CONT TITRATE PRN Rx #:[id number] Oral 360 / 360 240 / 240 Output: Urine 450 / 450 Other: # Voids 6 Narrative: GENERAL: Awake alert and oriented x3 talkative and cooperative no acute distress at this time SKIN: Warm and dry. HEAD: Atraumatic. Normocephalic. EYES: Pupils equal and round. No scleral icterus. No injection or drainage. ENT: No nasal bleeding or discharge. Mucous membranes pink and moist. EOMI wears glasses NECK: Trachea midline. No JVD. Supple CARDIOVASCULAR: Regular rate and rhythm. S1-S2 no S3 or S4 RESPIRATORY: No accessory muscle use. Clear to auscultation. Breath sounds equal bilaterally. GASTROINTESTINAL: Abdomen soft, non-tender, nondistended. Hepatic and splenic margins not palpable. MUSCULOSKELETAL: Extremities without clubbing, cyanosis, or edema. No obvious deformities. NEUROLOGICAL: Awake and alert. No obvious cranial nerve deficits. Motor grossly within normal limits. Five out of 5 muscle strength in the arms and legs. Normal speech. PSYCHIATRIC: Appropriate mood and affect; insight and judgment normal. Results 10/18/18 07:45 10/18/18 07:45 Cardiac Enzymes 10/18/18 Range/Units 07:45 AST 38 H (15-37) U/L Coagulation 10/16/18 10/17/18 10/18/18 Range/Units 21:09 02:57 07:45 PT 11.0 (9.8-11.6) sec APTT 48.4 H D 57.3 H 58.3 H (23.4-31.7) sec CBC 10/17/18 10/18/18 Range/Units 04:19 07:45 WBC 8.4 7.3 (4.0-11.0) th/mm3 RBC 4.60 4.31 L (4.50-5.90) mil/mm3 Hgb 15.1 14.2 (13.0-17.0) gm/dL Hct 44.6 42.1 (39.0-51.0) % Plt Count 134 L 123 L (150-450) th/mm3 Neut # (Auto) 4.4 4.1 (1.8-7.7) th/mm3 Lymph # (Auto) 2.9 2.1 (1.0-4.8) th/mm3 [place] # (Auto) 0.9 0.9 (0.0-0.9) th/mm3 Eos # (Auto) 0.1 0.1 (0.0-0.4) th/mm3 Baso # (Auto) 0.0 0.0 (0.0-0.2) th/mm3 Comprehensive Metabolic Panel 10/17/18 10/18/18 Range/Units 04:19 07:45 Sodium 137 137 (136-145) meq/L Potassium 4.1 4.4 (3.5-5.1) meq/L Chloride 106 106 (98-107) meq/L Carbon Dioxide 23.2 25.4 (21.0-32.0) meq/L BUN 23 H 24 H (7-18) mg/dL Creatinine 1.48 H 1.42 H (0.60-1.30) mg/dL Calcium 9.2 8.9 (8.5-10.1) mg/dL AST 38 H (15-37) U/L ALT 41 (12-78) U/L Alkaline Phosphatase 65 (45-117) U/L Total Protein 7.6 (6.4-8.2) g/dL Albumin 3.5 (3.4-5.0) g/dL Intake and Output 10/18/18 10/18/18 10/18/18 06:59 14:59 22:59 Intake Total 240 / 240 150 / 150 Output Total 450 / 450 Balance -210 / -210 150 / 150 Intake: IV 150 / 150 Heparin/D5W 25,000 U/250 mL 25, 150 / 150 000 unit In 250 ml @ Per Protocol IV.CONT TITRATE PRN Rx #:[id number] Oral 240 / 240 Output: Urine 450 / 450 Other: Weight 88.5 kg Assessment and Plan - Assessment (1) Unstable angina Code(s): I20.0 - Unstable angina Status: Acute (2) CAD (coronary artery disease), [place] coronary artery Code(s): I25.10 - Atherosclerotic heart disease of [place] coronary artery without angina pectoris Status: Acute (3) Ischemic cardiomyopathy Code(s): I25.5 - Ischemic cardiomyopathy Status: Chronic - Plan 1) CAD/[place] Multi-vessel CAD For CABG today Will see post-op 2) ICM EF 35-40% Better than previous cardiomyopathy 3) Con't heparin drip Off before surgery Progress Note: Quality - AMI Clinical Trial Participant: No
[2018-10-18] MEDS ORDERED: Clevidipine Inj 25 MG/50 ML VIAL IV.CONT PRN (17:59)
[2018-10-18] MEDS ORDERED: Potassium Chlor 20 mEq Premix 20 MEQ/100 ML PIGGYBACK IV.SIG PRN ×3 (17:59)
[2018-10-18] MEDS ORDERED: Calcium Chloride Inj 1 GM in Sodium Chlor 0.9% Inj 100 ML IV.SIG PRN (17:59)
[2018-10-18] MEDS ORDERED: Metoprolol Inj 5 MG/5 ML Vial IV.PUSH PRN (17:59)
[2018-10-18] MEDS ORDERED: Dexmedetomidine Inj 200 MCG in Sodium Chlor 0.9% Inj 48 ML IV.CONT PRN (17:59)
[2018-10-18] MEDS ORDERED: Calcium Chloride Inj 1 GM/10 ML Syringe IV.PUSH PRN (17:59)
[2018-10-18] MEDS ORDERED: Insulin Regular (For Infusion) 100 UNIT in Sodium Chlor 0.9% Inj 99 ML IV.CONT PRN (17:59)
[2018-10-18] MEDS ORDERED: Post-op Orders (for Pharmacy) OTHER STA (17:59)
[2018-10-18] MEDS ORDERED: Albumin Human 5% Inj 250 ML IV.SIG PRN (17:59)
[2018-10-18] MEDS ORDERED: RESP: Racemic Epinephrine 2.25% 0.5 ML Neb NEB PRN (17:59)
[2018-10-18] MEDS ORDERED: Magnesium Sulfate Inj 2 GM in Sodium Chlor 0.9% Inj 96 ML IV.SIG PRN ×4 (17:59)
[2018-10-18] MEDS ORDERED: Dextrose 50% in Water 50 ML Vial IV.PUSH PRN (17:59)
[2018-10-18] MEDS ORDERED: ceFAZolin 1 GM Premix Inj 1 GM/50 ML FROZ.PIGGY IV.SIG ONE (18:04)
--- NOTE | 2018-10-18 18:11 | P.OP ---
- Preoperative Diagnosis (1) CAD (coronary artery disease), [place] coronary artery (2) Ischemic cardiomyopathy (3) Combined systolic and diastolic congestive heart failure, NYHA class 3 (4) Unstable angina Postoperative Diagnosis: same Date of procedure: 10/18/18 Procedure: CABG x 4 LUA to LAd - fair SVG to OM1 - good SVG to OM2 - good SVG to RCA - good EVH DEIRDRE Anesthesia: GETA Surgeon: Brenda Williamson MD Hydro Plant Operator: Anna Oswald Operation and Findings: The risks, benefits, complications, treatment options, and expected outcomes were discussed with the patient. The possibilities of reaction to medication, pulmonary aspiration, perforation of viscus, bleeding, recurrent infection, the need for additional procedures, failure to diagnose a condition, and creating a complication requiring transfusion or operation were discussed with the patient. The patient concurred with the proposed plan, giving informed consent. The site of surgery properly noted/marked. The patient was taken to Operating Room, identified as Capo Hernandez and the procedure verified as CABG, EVH, DEIRDRE. A Time Out was held and the above information confirmed. Standard monitoring lines and Bello catheter were placed. General anesthesia was induced. The patient was prepped and draped in a sterile fashion. A median sternotomy was performed and electrocautery was used to obtain hemostasis. The left internal mammary artery was procured as a pedicle from the 7th rib to the 1st rib in the usual manner. Simultaneously left greater saphenous vein was procured from the left leg using a minimally invasive endoscopic technique. The vein was prepared for anastomosis and the leg wound was irrigated and closed in 2 layers. The pericardium was opened and a pericardial sling was created using interrupted 0 silk sutures. The patient was heparinized for cardiopulmonary bypass and the distal mammary pedicle was instrumented for anastomosis. The heart was instrumented for cardiopulmonary bypass in the usual manner. Antegrade blood cardioplegia was employed. The patient was placed on cardiopulmonary bypass. An aortic cross-clamp was applied and the heart was arrested using cold blood cardioplegia. Antegrade cardioplegia was administered after he each anastomosis. After adequate arrest, the distal right coronary circulation was investigated and the distal RCA was opened with a [place] blade and found to be a 1.5 millimeter good target. Saphenous vein was approximated to the RCA artery using a running 7 0 Prolene suture. The graft was measured for length and orientation and the proximal anastomosis was constructed to the ascending aorta using a running 5 0 Prolene suture after creating an aortotomy with a 5 millimeter punch. The OM2 artery was opened with a [place] blade and found to be a 1.5 millimeter good target. Saphenous vein was approximated to the Om2 artery using a running 7 0 Prolene suture. The graft was measured for length and orientation and the proximal anastomosis was constructed to the ascending aorta using a running 5 0 Prolene suture after creating an aortotomy with a 5 millimeter punch. The 1st circumflex marginal artery was then opened with a [place] blade and found to be a 1.5 millimeter good target. Saphenous vein was approximated to the OM1 artery using a running 7 0 Prolene suture. The graft was measured for length and orientation and was suspended from the pericardium. The distal LAD was opened with a [place] blade and found to be a 1.5 millimeter diffusely diseased fair target. The left internal mammary artery was approximated to the LAD using a running 7 0 Prolene suture. The pedicle was attached to the epicardium using interrupted 5 0 silk suture. The patient was systemically rewarmed and received a hotshot dose of warm blood cardioplegia. The aorta was vented and the proximal anastomosis to the OM1 graft was accomplished using a running 5 0 Prolene suture after creating an aortotomy was a 5 millimeter punch. The cross-clamp was removed and all proximal and distal anastomoses were examined for hemostasis. The patient was weaned from cardiopulmonary bypass. Protamine was given. There was no adverse reaction. Decannulation was carried out without incident. Wound was checked for hemostasis which was obtained using electrocautery. A 36 [place] mediastinal and 32 [place] left pleural chest tubes were placed and secured to the skin with 0 silk suture. The sternum was closed with stainless steel wire. The fascia was closed with 1. PDS. The subcutaneous tissue was closed using a running 2-0 Vicryl suture. The skin was closed with 4-0 Monocryl. Sterile dressings were placed. At the end of the operation, all sponge, instruments, and needle counts were correct. The patient was transferred to the CVICU in stable condition. Findings: No significant improvement in LV function (EF 25%) following revascularization. XC: 65 min CPB: 79 min Drains: mediastinal x 1 pleural x 1 Complications: none
--- NOTE | 2018-10-18 19:32 | XR ---
EXAM DATE: 10/18/2018 7:28 PM EST AGE/SEX: 63 years / Male INDICATIONS: Cardiac disease. CLINICAL DATA: This is the patient's subsequent encounter. Patient reports that signs and symptoms h ave been present for 2 days and indicates a pain score of Nonresponsive. MEDICAL/SURGICAL HISTORY: Hepatitis C. Carotid stent. COMPARISON: [facility], CHEST 1V SINGLE AP, 10/16/2018. . FINDINGS: Central and left chest tube present. No pneumothorax. Right central line in superior vena cava. Endot randy tube in good position. Nasogastric tube tip in the distal esophagus. Basilar airspace disease and small left effusion. CONCLUSION: Support apparatus in good position. Basilar airspace disease and small left effusion. No pneumothorax . Electronically signed by: Ozzy Patel MD 10/18/2018 7:31 PM EST
[2018-10-18] MEDS: fentaNYL Citrate Inj 100 MCG/2 ML Ampul IV.PUSH PRN ×3 (19:44→23:00)
[2018-10-18] MEDS: Amiodarone 200 MG Tablet PO SCH (22:32)
[2018-10-19] MEDS: fentaNYL Citrate Inj 100 MCG/2 ML Ampul IV.PUSH PRN ×3 (01:00→04:50)
[2018-10-19] MEDS: ceFAZolin 1 GM Premix Inj 1 GM/50 ML FROZ.PIGGY IV.SIG SCH ×3 (02:17→17:09)
[2018-10-19 04:46] LABS: Baso % (Auto) 0.1 % (0.0-2.0); Hematocrit 34.1 % (39.0-51.0); Hemoglobin 11.6 gm/dL (13.0-17.0); Lymph # (Auto) 0.8 th/mm3 (1.0-4.8); Lymph % (Auto) 7.3 % (9.0-44.0); Mean Corpuscular HGB Conc 34.1 % (32.0-36.0); Mean Corpuscular Volume 96.9 fL (80.0-100.0); Mean Platelet Volume 10.3 fL (7.0-11.0); Mono # (Auto) 0.6 th/mm3 (0.0-0.9); Neut # (Auto) 9.4 th/mm3 (1.8-7.7); Neut % (Auto) 86.6 % (16.0-70.0); Platelet Count 95 th/mm3 (150-450); Red Blood Count 3.52 mil/mm3 (4.50-5.90); Red Cell Distribution Width 12.8 % (11.6-17.2); White Blood Count 10.9 th/mm3 (4.0-11.0)
[2018-10-19 05:16] LABS: Alanine Aminotransferase 33 U/L (12-78); Albumin 3.1 g/dL (3.4-5.0); Anion Gap 9 meq/L (5-15); Aspartate Aminotransferase 46 U/L (15-37); Blood Urea Nitrogen 24 mg/dL (7-18); Calcium 7.9 mg/dL (8.5-10.1); Carbon Dioxide 22.6 meq/L (21.0-32.0); Chloride 107 meq/L (98-107); Glomerular Filtration Rate 59 mL/min (>89); Glucose,Random 140 mg/dL (74-106); Magnesium 2.4 mg/dL (1.5-2.5); Phosphorus 4.8 mg/dL (2.5-4.9); Potassium 4.6 meq/L (3.5-5.1); Sodium 139 meq/L (136-145)
[2018-10-19 05:21] LABS: Alkaline Phosphatase 41 U/L (45-117); Total Protein 6.1 g/dL (6.4-8.2)
--- NOTE | 2018-10-19 06:37 | XR ---
EXAM DATE: 10/19/2018 5:49 AM EST AGE/SEX: 63 years / Male INDICATIONS: S/P CABG. CLINICAL DATA: This is the patient's subsequent encounter. Patient reports that signs and symptoms h ave been present for 3 days and indicates a pain score of Nonresponsive. MEDICAL/SURGICAL HISTORY: . Hepatitis C. . Carotid stent. COMPARISON: [facility] [place], CHEST 1V SINGLE AP, 10/18/2018. . FINDINGS: Portable AP view of the chest demonstrates a normal-sized cardiac silhouette this patient post median sternotomy. The endotracheal tube and nasogastric tube have been removed. The right IJ line, mediast inal drain, and left chest tube remain present. No pneumothorax is identified. No pleural effusion or airspace consolidation is seen. CONCLUSION: Left chest tube remains present and no pneumothorax is visualized. Otherwise, no significant abnormal ity is identified. Electronically signed by: Yung Joseph MD 10/19/2018 6:36 AM EST
[2018-10-19] MEDS: Amiodarone 200 MG Tablet PO SCH ×3 (07:17→22:12)
[2018-10-19] MEDS ORDERED: Bisacodyl 10 MG Supp RECTAL PRN (09:03)
[2018-10-19] MEDS ORDERED: Dextrose 50% in Water 50 ML Vial IV.PUSH PRN (09:03)
[2018-10-19] MEDS ORDERED: Sod Phosphate/Sod Biphosphate (Adult) Enema 133 ML Bottle RECTAL PRN (09:03)
--- NOTE | 2018-10-19 09:41 | P.PNCV ---
- Note Subjective/Hospital Course: A 63-year-old male transferred from [facility] secondary to chest pain. Chest pain apparently starts in his hands, moves of his arms and then comes to retrosternal chest pain. He has had this chest pain off and on for the past few days to a week, which last 2-5 minutes. More noticeable with exertion, relieved with rest. He was previously seen in 02/2018 and was found to have a very low ejection fraction of 20%. He was recommended an ischemic workup, but then he was concerned about insurance, which he is now under Medicaid plan. There was initially concern for ST elevation; however, STEMI was ruled out. He had negative troponins. He underwent cardiac catheterization by Dr. Butler today , which showed ejection fraction of 20% by his prior echo 03/2018, left main disease of 80%, the proximal LAD 70%, the mid distal LAD 100%, the diagonal 100% , the RCA 100%, the ramus 60%. We were consulted to evaluate for coronary artery bypass graft. Repeat echo EF 35-40% PAST MEDICAL HISTORY: Includes ischemic cardiomyopathy, hypertension, hyperlipidemia, history of hepatitis, which was apparently treated with medication, tobacco abuse. The patient has been smoking since the age of 16. Now, he is down to half a pack. He was up to a pack per day. The patient has chronic kidney disease with GFR 55. 10/17 pt pain free, scheduled for surgery second case in am 2500cc crystalloid Date of procedure: 10/18/18 Procedure: CABG x 4 LUA to LAd - fair SVG to OM1 - good SVG to OM2 - good SVG to RCA - good EVH DEIRDRE extubated after surgery 10/19 doing well, up in chair weaning 02 start BB, on amiodarone , ASA Objective: Vital Signs - 24 hr 10/18/18 10:00 10/18/18 11:00 10/18/18 18:47 Temperature 98.3 F Pulse Rate 80 74 Respiratory Rate 16 12 Blood Pressure 156/80 H Pulse Oximetry 99 97 10/18/18 19:00 10/18/18 19:57 10/18/18 20:00 Temperature 97.8 F Pulse Rate 80 Respiratory Rate 12 12 12 Blood Pressure 102/56 L Pulse Oximetry 99 99 98 10/18/18 21:45 10/18/18 23:00 10/19/18 00:00 Temperature 98.2 F Pulse Rate 76 Respiratory Rate 10 L Blood Pressure 131/69 Pulse Oximetry 99 98 98 10/19/18 00:08 10/19/18 00:12 10/19/18 03:00 Temperature 98.4 F Pulse Rate 82 83 Respiratory Rate 18 16 Blood Pressure 128/72 Pulse Oximetry 99 97 10/19/18 04:27 10/19/18 07:00 Temperature 98.8 F Pulse Rate 80 84 Respiratory Rate 16 16 Blood Pressure 124/63 Pulse Oximetry 98 GENERAL: A&O x 3 SKIN: Warm and dry. prevena dressing to chest , edna wrap to left leg HEAD: Normocephalic. EYES: No scleral icterus. No injection or drainage. NECK: Supple, trachea midline. No JVD or lymphadenopathy. CARDIOVASCULAR: Regular rate and rhythm without murmurs, gallops, or rubs. RESPIRATORY: Breath sounds equal bilaterally. No accessory muscle use. chest tube to wall suction, no air leak / drained 470cc/ 24 hrs GASTROINTESTINAL: Abdomen soft, non-tender, nondistended. MUSCULOSKELETAL: No cyanosis, or edema. BACK: Nontender without obvious deformity. No CVA tenderness. Labs: Laboratory Results - last 12 hr 10/18/18 10/18/18 10/18/18 07:45 22:29 23:15 WBC RBC Hgb Hct MCV MCH MCHC RDW Plt Count MPV Prelim Diff (Auto) Neut % (Auto) Lymph % (Auto) [place] % (Auto) Eos % (Auto) Baso % (Auto) Neut # (Auto) Lymph # (Auto) [place] # (Auto) Eos # (Auto) Baso # (Auto) WBC Differential Diff Scan Differential Comment Sodium Potassium Chloride Carbon Dioxide Anion Gap BUN Creatinine Estimated GFR POC Glucose 120 H 108 Random Glucose Calcium Phosphorus Magnesium Total Bilirubin AST ALT Alkaline Phosphatase Total Protein Albumin Blood Type O Negative Antibody Screen Negative MTS Gel Crossmatch See Detail 10/19/18 10/19/18 10/19/18 01:22 03:27 04:12 WBC 10.9 RBC 3.52 L Hgb 11.6 L D Hct 34.1 L MCV 96.9 MCH 33.0 MCHC 34.1 RDW 12.8 Plt Count 95 L MPV 10.3 Prelim Diff (Auto) Slide review pending Neut % (Auto) 86.6 H Lymph % (Auto) 7.3 L [place] % (Auto) 6.0 Eos % (Auto) 0.0 Baso % (Auto) 0.1 Neut # (Auto) 9.4 H Lymph # (Auto) 0.8 L [place] # (Auto) 0.6 Eos # (Auto) 0.0 Baso # (Auto) 0.0 WBC Differential . Diff Scan Auto diff confirmed Differential Comment . Sodium Potassium Chloride Carbon Dioxide Anion Gap BUN Creatinine Estimated GFR POC Glucose 104 132 H Random Glucose Calcium Phosphorus Magnesium Total Bilirubin AST ALT Alkaline Phosphatase Total Protein Albumin Blood Type Antibody Screen MTS Gel Crossmatch 10/19/18 10/19/18 10/19/18 04:12 04:58 07:55 WBC RBC Hgb Hct MCV MCH MCHC RDW Plt Count MPV Prelim Diff (Auto) Neut % (Auto) Lymph % (Auto) [place] % (Auto) Eos % (Auto) Baso % (Auto) Neut # (Auto) Lymph # (Auto) [place] # (Auto) Eos # (Auto) Baso # (Auto) WBC Differential Diff Scan Differential Comment Sodium 139 Potassium 4.6 Chloride 107 Carbon Dioxide 22.6 Anion Gap 9 BUN 24 H Creatinine 1.23 Estimated GFR 59 L POC Glucose 118 H 144 H Random Glucose 140 H Calcium 7.9 L D Phosphorus 4.8 D Magnesium 2.4 Total Bilirubin 0.8 AST 46 H ALT 33 Alkaline Phosphatase 41 L Total Protein 6.1 L D Albumin 3.1 L Blood Type Antibody Screen MTS Gel Crossmatch Result Diagrams: 10/19/18 04:12 10/19/18 04:12 Telemetry: NSR - Plan (4) Unstable angina Plan: on ASA, statin BB OOB ambulate pain control leave chest tubes in stable to transfer to stepdown wean 02 as tolerated
--- NOTE | 2018-10-19 10:04 | P.DIET ---
Nutritional Evaluation Screening comments: MDC for diet education s/p CABG x 4 on 10/18 received. Patient Navigator to provide education. Consult RD if complexities with diet education arise.
[2018-10-19] MEDS: Insulin NovoLOG Aspart Correctional Sugar Inj SQ SCH ×4 (10:48→22:11)
[2018-10-19] MEDS: Metoprolol Tartrate 25 MG Tablet PO SCH ×2 (10:49→20:54)
--- NOTE | 2018-10-19 11:49 | P.PN ---
Subjective Interval history: Follow-up for multivessel CAD status post CABG x4. Patient is currently doing well. He complains of some pain but overall well controlled. Shortness of breath, fever or chills. Chest tube is in place. He tolerated food well. Physical Exam Vital signs: Vital Signs 10/18/18 18:47 10/18/18 19:00 10/18/18 19:57 Temperature 97.8 F Pulse Rate 80 Respiratory Rate 12 12 12 Blood Pressure 102/56 L Pulse Oximetry 97 99 99 10/18/18 20:00 10/18/18 21:45 10/18/18 23:00 Temperature 98.2 F Pulse Rate 76 Respiratory Rate 12 10 L Blood Pressure 131/69 Pulse Oximetry 98 99 98 10/19/18 00:00 10/19/18 00:08 10/19/18 00:12 Temperature Pulse Rate 82 Respiratory Rate 18 Blood Pressure Pulse Oximetry 98 99 10/19/18 03:00 10/19/18 04:27 10/19/18 07:00 Temperature 98.4 F 98.8 F Pulse Rate 83 80 84 Respiratory Rate 16 16 16 Blood Pressure 128/72 124/63 Pulse Oximetry 97 98 Intake & Output 10/18/18 10/19/18 10/19/18 18:59 06:59 18:59 Intake Total 250 / 250 3930 / 3930 100 / 100 Output Total 3500 / 3500 Balance 250 / 250 430 / 430 100 / 100 Weight 94 kg Intake: IV 250 / 250 450 / 450 100 / 100 Precedex Inj 200 MCG In NS Inj 50 / 50 48 ML @ 0.2 MCG/KG/HR 4.42 mls/ hr IV.CONT TITRATE PRN Rx#: [id number] Heparin/D5W 25,000 U/250 mL 25, 150 / 150 000 unit In 250 ml @ Per Protocol IV.CONT TITRATE PRN Rx #:[id number] Ofirmev Inj 1,000 mg In 100 ml 100 / 100 @ 400 mls/hr IV.SIG Q6H TARUN Rx# :[id number] Buminate 5% Inj 250 ML @ 250 250 / 250 mls/hr IV.SIG UNSCH PRN Rx#: [id number] Ancef 1 GM Premix Inj 1 gm In 100 / 100 50 / 50 50 / 50 50 ml @ 200 mls/hr IV.SIG Q8H TARUN Rx#:[id number] Oral 480 / 480 Anesthesia Amount 2500 / 2500 Cell Saver Amount 500 / 500 Output: Estimated Blood Loss 1000 / 1000 Urine Amount (Catheter) 2029 Indwelling Temp Sensing 2029 Catheter Chest Tube Drainage 470 / 470 #2 Left Pleural Y Connected 470 / 470 Narrative: GENERAL: Alert, oriented x3, NAD. Status post CABG x4 SKIN: Warm and dry. HEAD: Normocephalic. EYES: No scleral icterus. No injection or drainage. NECK: Supple, trachea midline. No JVD or lymphadenopathy. CARDIOVASCULAR: Regular rate and rhythm without murmurs, gallops, or rubs. Status post CABG x4. Prevana dressing to the chest present. RESPIRATORY: Breath sounds equal bilaterally. No accessory muscle use. GASTROINTESTINAL: Abdomen soft, non-tender, nondistended. MUSCULOSKELETAL: No cyanosis, or edema. BACK: Nontender without obvious deformity. No CVA tenderness. - Urinary Catheter Management Indwelling Temp Sensing Catheter Cath placed during this visit: yes, but has since been removed by the nurse Reason for continuing: Decision to DC catheter Insertion date: 10/18/18 Insertion time: 14:00 Removal date: 10/19/18 Removal time: 06:00 Results - Labs CBC & Chem 7: 10/19/18 04:12 10/19/18 04:12 Laboratory Results - last 24 hr 10/18/18 10/18/18 10/18/18 07:45 20:14 22:29 WBC RBC Hgb Hct MCV MCH MCHC RDW Plt Count MPV Prelim Diff (Auto) Neut % (Auto) Lymph % (Auto) [place] % (Auto) Eos % (Auto) Baso % (Auto) Neut # (Auto) Lymph # (Auto) [place] # (Auto) Eos # (Auto) Baso # (Auto) WBC Differential Diff Scan Differential Comment Sodium Potassium Chloride Carbon Dioxide Anion Gap BUN Creatinine Estimated GFR POC Glucose 116 H 120 H Random Glucose Calcium Phosphorus Magnesium Total Bilirubin AST ALT Alkaline Phosphatase Total Protein Albumin Blood Type O Negative Antibody Screen Negative MTS Gel Crossmatch See Detail 10/18/18 10/19/18 10/19/18 23:15 01:22 03:27 WBC RBC Hgb Hct MCV MCH MCHC RDW Plt Count MPV Prelim Diff (Auto) Neut % (Auto) Lymph % (Auto) [place] % (Auto) Eos % (Auto) Baso % (Auto) Neut # (Auto) Lymph # (Auto) [place] # (Auto) Eos # (Auto) Baso # (Auto) WBC Differential Diff Scan Differential Comment Sodium Potassium Chloride Carbon Dioxide Anion Gap BUN Creatinine Estimated GFR POC Glucose 108 104 132 H Random Glucose Calcium Phosphorus Magnesium Total Bilirubin AST ALT Alkaline Phosphatase Total Protein Albumin Blood Type Antibody Screen MTS Gel Crossmatch 10/19/18 10/19/18 10/19/18 04:12 04:12 04:58 WBC 10.9 RBC 3.52 L Hgb 11.6 L D Hct 34.1 L MCV 96.9 MCH 33.0 MCHC 34.1 RDW 12.8 Plt Count 95 L MPV 10.3 Prelim Diff (Auto) Slide review pending Neut % (Auto) 86.6 H Lymph % (Auto) 7.3 L [place] % (Auto) 6.0 Eos % (Auto) 0.0 Baso % (Auto) 0.1 Neut # (Auto) 9.4 H Lymph # (Auto) 0.8 L [place] # (Auto) 0.6 Eos # (Auto) 0.0 Baso # (Auto) 0.0 WBC Differential . Diff Scan Auto diff confirmed Differential Comment . Sodium 139 Potassium 4.6 Chloride 107 Carbon Dioxide 22.6 Anion Gap 9 BUN 24 H Creatinine 1.23 Estimated GFR 59 L POC Glucose 118 H Random Glucose 140 H Calcium 7.9 L D Phosphorus 4.8 D Magnesium 2.4 Total Bilirubin 0.8 AST 46 H ALT 33 Alkaline Phosphatase 41 L Total Protein 6.1 L D Albumin 3.1 L Blood Type Antibody Screen MTS Gel Crossmatch 10/19/18 10/19/18 07:55 09:11 WBC RBC Hgb Hct MCV MCH MCHC RDW Plt Count MPV Prelim Diff (Auto) Neut % (Auto) Lymph % (Auto) [place] % (Auto) Eos % (Auto) Baso % (Auto) Neut # (Auto) Lymph # (Auto) [place] # (Auto) Eos # (Auto) Baso # (Auto) WBC Differential Diff Scan Differential Comment Sodium Potassium Chloride Carbon Dioxide Anion Gap BUN Creatinine Estimated GFR POC Glucose 144 H 133 H Random Glucose Calcium Phosphorus Magnesium Total Bilirubin AST ALT Alkaline Phosphatase Total Protein Albumin Blood Type Antibody Screen MTS Gel Crossmatch - Imaging Impressions Chest X-Ray 10/18/18 18:00 CONCLUSION: Support apparatus in good position. Basilar airspace disease and small left effusion. No pneumothorax. Chest X-Ray 10/19/18 05:00 CONCLUSION: Left chest tube remains present and no pneumothorax is visualized. Otherwise, no significant abnormality is identified. - Procedures 10/16/2018 PROCEDURES: Left heart catheterization, coronary angiogram, ultrasound-guided access, moderate sedation 30 minutes. PREPROCEDURE DIAGNOSES: EKG changes concerning for possible ST elevation myocardial infarction, chest pain concerning for coronary insufficiency. POSTPROCEDURE DIAGNOSES: Infarction of the anterior and inferior wall with a chronic total occlusions, ischemic cardiomyopathy. CONTRAST USED: 80 mL. FLUOROSCOPY: 2.6 minutes. MODERATE SEDATION: 30 minutes. FRAILTY SCORE: 4. ESTIMATED BLOOD LOSS: 10 mL. PROCEDURAL SUMMARY: Capo Hernandez is a 63-year-old male who presented to [facility] Emergency Room this morning due to chest pain. He states that he has had chest pain on and off for the past week or so. He was found to have previously had an ejection fraction of 20% and recommended an ischemic evaluation in February, but refused at that time. On arrival, an EKG was done and there was concern for some minimal ST elevation, although not much different from his previous EKG in February. He was sent to the slab depiler operator due to concern for ST elevations. Upon leaving the Emergency Room in [place], his chest pain was now gone. On arrival here, he continued to not have chest pain. I discussed with him the need for cardiac catheterization due to his previous cardiomyopathy including risks, benefits, and alternatives; and he agreed to proceed with the case. He was brought to the lab and prepped in the usual sterile fashion. The right femoral artery was accessed using a modified Seldinger technique with ultrasound guidance and placement of a 6-Trinidadian sheath. This was easily aspirated and flushed. A JR4 was advanced over a J-wire to the ascending aorta and across the aortic valve for measurement of left ventricular pressure. This was pulled back across the aortic valve showing no significant gradient of aortic stenosis. JR4 was used for selective angiography of the right coronary artery system. This was exchanged out for a JL4, which was used for selective angiography of the left coronary artery system. JL4 was removed over a J wire. ACT was checked and was 174 and so sheath was pulled and pressure held for hemostasis. The patient left the slab depiler operator cardiovascularly stable. FINDINGS: LEFT MAIN: Moderate-sized vessel, which distally tapers to 70%-80%. It trifurcates into an LAD, ramus, and circumflex. LAD: There is 80% disease at the ostial portion with 100% in the mid portion. There are [id number] collaterals which supply the mid and distal LAD as well as the diagonal. RAMUS: Moderate-sized vessel, which has a 60% lesion of the proximal portion and diffusely 30% disease throughout. LEFT CIRCUMFLEX: Moderate-sized vessel with 30% disease throughout. It supplies 2 obtuse marginals with no significant disease. RCA: It was 100% occluded in the mid portion with [id number] and [id number] collaterals. LVEDP: 10. IMPRESSION: 1. Possible ST elevation myocardial infarction, more likely EKG changes consistent with previous anterior septal myocardial infarction. 2. Multivessel coronary artery disease with 100% occlusion of the right coronary artery as well as the left anterior descending and significant left main disease. 3. Ischemic cardiomyopathy with a previous ejection fraction of 20%. RECOMMENDATIONS: 1. Capo Hernandez presented as a STEMI alert, but ultimately his EKG looks similar to previous, more likely that this is an old anterior septal myocardial infarction 2. During his cardiac catheterization, he was found to have multivessel disease with occlusions of the RCA and LAD, which appeared to be chronic in nature. Upon arrival to the slab depiler operator, he was no longer having chest pain, which would not be consistent with an acute STEMI presentation. 3. This is probably what led to his ischemic cardiomyopathy. 4. He will be admitted and seen by CT surgery for further consideration of coronary artery bypass grafting. 5. We will plan on placing him on a heparin drip 6 hours after sheath was pulled. 6. We will recheck an echo to further evaluate his overall ejection fraction. Thank you for allowing me to see Capo Hernandez. If there are any questions, please do not hesitate to call. DO YAQUELIN Carroll/marcio , 08:05 AM , 08:15 AM Assessment and Plan - Plan This patient is a 63 y/o Male with htn, dyslipidemia, history of tobacco abuse and Systolic chf with an ef of 20%. Patient presented to our ED with complaints of left sided chest pain. ED workup indicated lateral STEMI. Patient was emergently taken to cardiac Insurance Business Analyst where he was found to have multivessel coronary artery disease. Patient subsequently underwent CABG x4 on 10/18/2018. ST elevation myocardial infarction Ischemic cardiomyopathy EKG consistent with lateral ischemic changes. Status post cardiac cath which showed multivessel disease. Patient is a status post CABG x4 (LUA to LAD, SVG to OM1, OM2, RCA). Continue aspirin 81 mg, atorvastatin 40 mg. Need for Plavix would be left up to CV surgery. Continue metoprolol 12.5 mg twice daily as well as amiodarone 400 mg p.o. every 8 hours. Echocardiogram on 10/17/2018 showed ejection fraction 35-40%. This is before revascularization. Chronic kidney disease stage III A Baseline creatinine appears to be 1.3-1.6. Avoid nephrotoxins. Full code. SCDs. Pharmacological DVT prophylaxis when okay with CV surgery. Progress Note: Quality - AMI Clinical Trial Participant: No
--- NOTE | 2018-10-19 12:11 | P.PNCA ---
Subjective Interval history: s/p CABGx4 [facility] Chest pain with deep breaths Chest tubes in place Medications and Allergies Active Medications: Active Medications Al Hydroxide/Mg Hydroxide (Milk Of Magnrandolph Liq) 30 ml PO DAILY [facility] Albuterol (Duoneb Neb (Prn)) 1 ampul NEB Q2HR NEB PRN PRN Reason: WHEEZING Albuterol (Duoneb Neb (Tarun)) 1 ampul NEB Q6HR WHILE AWAKE NEB [facility] Stop: 10/21/18 13:59 Amiodarone HCl (Cordarone) 400 mg PO Q8HR [facility] Last Admin: 10/19/18 07:17 Dose: 400 mg Aspirin (Aspirin Chew) 81 mg PO DAILY [facility] Last Admin: 10/19/18 09:47 Dose: 81 mg Atorvastatin Calcium (Lipitor) 40 mg PO DAILY [facility] Last Admin: 10/19/18 09:47 Dose: 40 mg Bisacodyl (Dulcolax Supp) 10 mg RECTAL PRN PRN PRN Reason: SEE LABEL COMMENTS Chlorhexidine Gluconate (Hibiclens 4% Topical) 1 applicatio TOPICAL GIVER [facility] Stop: 10/22/18 10:31 Dextrose (D50w Vial) 50 ml IV.PUSH UNSCH PRN PRN Reason: PER HYPOGLYCEMIA PROTOCOL Docusate Sodium (Colace) 100 mg PO BID [facility] Glucagon (Glucagon Inj) 1 mg OTHER PRN PRN PRN Reason: For hypoglycemia Acetaminophen (Ofirmev Inj) 1,000 mg in 100 mls @ 400 mls/hr IV.SIG Q6H [facility] Stop: 10/19/18 12:44 Last Admin: 10/19/18 11:53 Dose: 400 mls/hr Cefazolin Sodium/Dextrose (Ancef 1 Gm Premix Inj) 1 gm in 50 mls @ 200 mls/hr IV.SIG Q8H [facility] Stop: 10/20/18 10:14 Last Infusion: 10/19/18 10:54 Dose: Infused Insulin Aspart (Novolog Insulin Correctional Sugar Inj) 0 unit SQ 02,06,10,14, 18,22 [facility]; Protocol Last Admin: 10/19/18 10:48 Dose: 3 unit Metoprolol Tartrate (Lopressor) 12.5 mg PO BID [facility] Last Admin: 10/19/18 10:49 Dose: 12.5 mg Multivitamins/Minerals (Theragran-M) 1 tab PO DAILY [facility] Ondansetron HCl (Zofran Inj) 4 mg IV.PUSH Q6H PRN PRN Reason: NAUSEA OR VOMITING Oxycodone/Acetaminophen (Percocet 5/325 Mg) 1 tab PO Q3H PRN PRN Reason: PAIN SCALE 1 TO 5 Last Admin: 10/19/18 09:47 Dose: 1 tab Pantoprazole Sodium (Protonix) 40 mg PO DAILY@06 [facility] Last Admin: 10/19/18 07:17 Dose: 40 mg Polyethylene Glycol (Miralax) 17 gm PO DAILY [facility] Sennosides (Senokot) 8.6 mg PO HS [facility] Sodium Biphosphate/Sodium Phosphate (Fleets Enema (Adult)) 118 ml RECTAL UNSCH PRN PRN Reason: SEE LABEL COMMENTS Sodium Chloride (Ns Flush) 2 ml IV.FLUSH BID [facility] Last Admin: 10/19/18 10:49 Dose: 2 ml Sodium Chloride (Ns Flush) 2 ml IV.FLUSH PRN PRN PRN Reason: FLUSH AFTER USING IV ACCESS Allergies Allergy/AdvReac Type Severity Reaction Status Date / Time No Known Allergies Allergy Verified 10/16/18 06:46 Home Medications Medication Instructions Recorded Confirmed Type atorvastatin 40 mg PO DAILY 10/16/18 10/16/18 History carvedilol 12.5 mg PO BID 10/16/18 10/16/18 History furosemide 20 mg PO DAILY 10/16/18 10/16/18 History lisinopril 40 mg PO DAILY 10/16/18 10/16/18 History Physical Exam Vital signs: Vital Signs 10/18/18 18:47 10/18/18 19:00 10/18/18 19:57 Temperature 97.8 F Pulse Rate 80 Respiratory Rate 12 12 12 Blood Pressure 102/56 L Pulse Oximetry 97 99 99 10/18/18 20:00 10/18/18 21:45 10/18/18 23:00 Temperature 98.2 F Pulse Rate 76 Respiratory Rate 12 10 L Blood Pressure 131/69 Pulse Oximetry 98 99 98 10/19/18 00:00 10/19/18 00:08 10/19/18 00:12 Temperature Pulse Rate 82 Respiratory Rate 18 Blood Pressure Pulse Oximetry 98 99 10/19/18 03:00 10/19/18 04:27 10/19/18 07:00 Temperature 98.4 F 98.8 F Pulse Rate 83 80 84 Respiratory Rate 16 16 16 Blood Pressure 128/72 124/63 Pulse Oximetry 97 98 Intake & Output 10/18/18 10/19/18 10/19/18 18:59 06:59 18:59 Intake Total 250 / 250 3930 / 3930 100 / 100 Output Total 3500 / 3500 Balance 250 / 250 430 / 430 100 / 100 Weight 94 kg Intake: IV 250 / 250 450 / 450 100 / 100 Precedex Inj 200 MCG In NS Inj 50 / 50 48 ML @ 0.2 MCG/KG/HR 4.42 mls/ hr IV.CONT TITRATE PRN Rx#: [id number] Heparin/D5W 25,000 U/250 mL 25, 150 / 150 000 unit In 250 ml @ Per Protocol IV.CONT TITRATE PRN Rx #:[id number] Ofirmev Inj 1,000 mg In 100 ml 100 / 100 @ 400 mls/hr IV.SIG Q6H [facility] Rx# :[id number] Buminate 5% Inj 250 ML @ 250 250 / 250 mls/hr IV.SIG UNSCH PRN Rx#: [id number] Ancef 1 GM Premix Inj 1 gm In 100 / 100 50 / 50 50 / 50 50 ml @ 200 mls/hr IV.SIG Q8H [facility] Rx#:[id number] Oral 480 / 480 Anesthesia Amount 2500 / 2500 Cell Saver Amount 500 / 500 Output: Estimated Blood Loss 1000 / 1000 Urine Amount (Catheter) 2029 Indwelling Temp Sensing 2029 Catheter Chest Tube Drainage 470 / 470 #2 Left Pleural Y Connected 470 / 470 Narrative: GENERAL: Alert, oriented x3, NAD. Status post CABG x4 SKIN: Warm and dry. HEAD: Normocephalic. EYES: No scleral icterus. No injection or drainage. NECK: Supple, trachea midline. No JVD or lymphadenopathy. CARDIOVASCULAR: Regular rate and rhythm without murmurs, gallops, or rubs. Status post CABG x4. Prevana dressing to the chest present. RESPIRATORY: Breath sounds equal bilaterally. No accessory muscle use. GASTROINTESTINAL: Abdomen soft, non-tender, nondistended. MUSCULOSKELETAL: No cyanosis, or edema. BACK: Nontender without obvious deformity. No CVA tenderness. - Urinary Catheter Management Indwelling Temp Sensing Catheter Cath placed during this visit: yes, but has since been removed by the nurse Reason for continuing: Decision to DC catheter Insertion date: 10/18/18 Insertion time: 14:00 Removal date: 10/19/18 Removal time: 06:00 Results 10/19/18 04:12 10/19/18 04:12 Cardiac Enzymes 10/18/18 10/19/18 Range/Units 07:45 04:12 AST 38 H 46 H (15-37) U/L Coagulation 10/18/18 Range/Units 07:45 PT 11.0 (9.8-11.6) sec APTT 58.3 H (23.4-31.7) sec CBC 10/18/18 10/19/18 Range/Units 07:45 04:12 WBC 7.3 10.9 (4.0-11.0) th/mm3 RBC 4.31 L 3.52 L (4.50-5.90) mil/mm3 Hgb 14.2 11.6 L D (13.0-17.0) gm/dL Hct 42.1 34.1 L (39.0-51.0) % Plt Count 123 L 95 L (150-450) th/mm3 Neut # (Auto) 4.1 9.4 H (1.8-7.7) th/mm3 Lymph # (Auto) 2.1 0.8 L (1.0-4.8) th/mm3 [place] # (Auto) 0.9 0.6 (0.0-0.9) th/mm3 Eos # (Auto) 0.1 0.0 (0.0-0.4) th/mm3 Baso # (Auto) 0.0 0.0 (0.0-0.2) th/mm3 Comprehensive Metabolic Panel 10/18/18 10/19/18 Range/Units 07:45 04:12 Sodium 137 139 (136-145) meq/L Potassium 4.4 4.6 (3.5-5.1) meq/L Chloride 106 107 (98-107) meq/L Carbon Dioxide 25.4 22.6 (21.0-32.0) meq/L BUN 24 H 24 H (7-18) mg/dL Creatinine 1.42 H 1.23 (0.60-1.30) mg/dL Calcium 8.9 7.9 L D (8.5-10.1) mg/dL AST 38 H 46 H (15-37) U/L ALT 41 33 (12-78) U/L Alkaline Phosphatase 65 41 L (45-117) U/L Total Protein 7.6 6.1 L D (6.4-8.2) g/dL Albumin 3.5 3.1 L (3.4-5.0) g/dL Intake and Output 10/18/18 10/19/18 10/19/18 22:59 06:59 14:59 Intake Total 3150 / 3150 880 / 880 100 / 100 Output Total 1800 / 1800 1700 / 1700 Balance 1350 / 1350 -820 / -820 100 / 100 Intake: IV 150 / 150 400 / 400 100 / 100 Precedex Inj 200 MCG In NS Inj 50 / 50 48 ML @ 0.2 MCG/KG/HR 4.42 mls/ hr IV.CONT TITRATE PRN Rx#: [id number] Ofirmev Inj 1,000 mg In 100 ml 100 / 100 @ 400 mls/hr IV.SIG Q6H [facility] Rx# :[id number] Buminate 5% Inj 250 ML @ 250 250 / 250 mls/hr IV.SIG UNSCH PRN Rx#: [id number] Ancef 1 GM Premix Inj 1 gm In 100 / 100 50 / 50 50 / 50 50 ml @ 200 mls/hr IV.SIG Q8H [facility] Rx#:[id number] Oral 480 / 480 Anesthesia Amount 2500 / 2500 Cell Saver Amount 500 / 500 Output: Estimated Blood Loss 1000 / 1000 Urine Amount (Catheter) 800 / 800 1230 / 1230 Indwelling Temp Sensing 800 / 800 1230 / 1230 Catheter Chest Tube Drainage 470 / 470 #2 Left Pleural Y Connected 470 / 470 Other: Weight 94 kg - Imaging and Cardiology Imaging: Impressions Chest X-Ray 10/18/18 18:00 CONCLUSION: Support apparatus in good position. Basilar airspace disease and small left effusion. No pneumothorax. Chest X-Ray 10/19/18 05:00 CONCLUSION: Left chest tube remains present and no pneumothorax is visualized. Otherwise, no significant abnormality is identified. Assessment and Plan - Assessment (1) Unstable angina Code(s): I20.0 - Unstable angina Status: Acute (2) CAD (coronary artery disease), [place] coronary artery Code(s): I25.10 - Atherosclerotic heart disease of [place] coronary artery without angina pectoris Status: Acute (3) Ischemic cardiomyopathy Code(s): I25.5 - Ischemic cardiomyopathy Status: Chronic - Plan 1) CAD/[place] Multi-vessel CAD CABGx4 Doing well 2) ICM EF 35-40% Better than previous cardiomyopathy 3) ASA/BB/Statin/Amiodarone Question of Plavix Progress Note: Quality - AMI Clinical Trial Participant: No
--- NOTE | 2018-10-19 14:00 | ECG ---
Date Performed: 10/19/2018 Time Performed: 04:23:54 PTAGE: 63 years EKG: Sinus rhythm . Possible inferior infarct - age undetermined Possible anteroseptal infarct - age undetermined Later al ST-T changes are nonspecific Abnormal ECG Since the PREVIOUS TRACING , no significant change noted PREVIOUS TRACIN10/16/2018 06.00 DOCTOR: Deyvi Kelly Interpretating Date/Time 10/19/2018 13:53:53
[2018-10-19] MEDS: Docusate Sodium 100 MG Capsule PO SCH (20:53)
[2018-10-20] MEDS: Insulin NovoLOG Aspart Correctional Sugar Inj SQ SCH ×6 (01:55→20:31)
[2018-10-20] MEDS: ceFAZolin 1 GM Premix Inj 1 GM/50 ML FROZ.PIGGY IV.SIG SCH ×2 (01:55→09:37)
[2018-10-20] MEDS: Amiodarone 200 MG Tablet PO SCH ×3 (05:01→21:30)
[2018-10-20 05:09] LABS: Baso % (Auto) 0.1 % (0.0-2.0); Eos % (Auto) 0.1 % (0.0-4.0); Hematocrit 33.2 % (39.0-51.0); Hemoglobin 11.1 gm/dL (13.0-17.0); Lymph # (Auto) 2.1 th/mm3 (1.0-4.8); Lymph % (Auto) 11.8 % (9.0-44.0); Mean Corpuscular HGB Conc 33.4 % (32.0-36.0); Mean Corpuscular Hemoglobin 31.7 pg (27.0-34.0); Mean Platelet Volume 9.8 fL (7.0-11.0); Mono # (Auto) 2.2 th/mm3 (0.0-0.9); Mono % (Auto) 12.7 % (0.0-8.0); Neut # (Auto) 13.2 th/mm3 (1.8-7.7); Neut % (Auto) 75.3 % (16.0-70.0); Platelet Count 122 th/mm3 (150-450); Red Cell Distribution Width 13.1 % (11.6-17.2); White Blood Count 17.5 th/mm3 (4.0-11.0)
[2018-10-20 05:41] LABS: Calcium 8.5 mg/dL (8.5-10.1); Carbon Dioxide 25.6 meq/L (21.0-32.0); Magnesium 2.2 mg/dL (1.5-2.5); Potassium 4.5 meq/L (3.5-5.1)
[2018-10-20 05:50] LABS: Platelet Morphology Normal (Normal); RBC Morphology Normal (Normal)
--- NOTE | 2018-10-20 08:44 | P.PN ---
Subjective Interval history: Follow-up for multivessel CAD status post CABG x4. Patient is doing well. No acute concerns. Continues to have some sternal area pain. Afebrile. Physical Exam Vital signs: Vital Signs 10/19/18 12:00 10/19/18 12:46 10/19/18 12:52 Temperature 98.6 F Pulse Rate 81 75 Respiratory Rate 16 18 Blood Pressure 128/62 Pulse Oximetry 96 96 10/19/18 13:45 10/19/18 14:00 10/19/18 14:36 Temperature Pulse Rate 74 95 H 86 Respiratory Rate 18 Blood Pressure Pulse Oximetry 10/19/18 15:00 10/19/18 15:46 10/19/18 16:00 Temperature 98.2 F Pulse Rate 82 75 Respiratory Rate 18 18 Blood Pressure 135/68 Pulse Oximetry 95 10/19/18 17:00 10/19/18 18:00 10/19/18 19:00 Temperature Pulse Rate 79 81 77 Respiratory Rate Blood Pressure Pulse Oximetry 10/19/18 20:00 10/19/18 21:00 10/19/18 21:03 Temperature 98.9 F Pulse Rate 86 94 H 91 H Respiratory Rate 18 19 Blood Pressure 135/68 Pulse Oximetry 96 94 L 10/19/18 22:00 10/19/18 23:00 10/20/18 00:00 Temperature 99 F Pulse Rate 102 H 73 79 Respiratory Rate 18 Blood Pressure 134/63 Pulse Oximetry 97 10/20/18 01:00 10/20/18 02:00 10/20/18 03:00 Temperature Pulse Rate 90 90 78 Respiratory Rate Blood Pressure Pulse Oximetry 10/20/18 04:00 10/20/18 05:00 10/20/18 05:41 Temperature 98.7 F Pulse Rate 88 86 78 Respiratory Rate 18 Blood Pressure 141/65 H Pulse Oximetry 92 L 10/20/18 07:00 10/20/18 07:50 Temperature Pulse Rate 83 99 H Respiratory Rate 16 Blood Pressure Pulse Oximetry 93 L Intake & Output 10/19/18 10/20/18 10/20/18 18:59 06:59 18:59 Intake Total 670 / 670 530 / 530 Output Total 720 / 720 640 / 640 Balance -50 / -50 -110 / -110 Weight 92.3 kg Intake: IV 250 / 250 50 / 50 Precedex Inj 200 MCG In NS Inj 50 / 50 48 ML @ 0.2 MCG/KG/HR 4.42 mls/ hr IV.CONT TITRATE PRN Rx#: [id number] Ofirmev Inj 1,000 mg In 100 ml 100 / 100 @ 400 mls/hr IV.SIG Q6H [facility] Rx# :[id number] Ancef 1 GM Premix Inj 1 gm In 100 / 100 50 / 50 50 ml @ 200 mls/hr IV.SIG Q8H TARUN Rx#:[id number] Oral 420 / 420 480 / 480 Output: Urine 400 / 400 500 / 500 Chest Tube Drainage 320 / 320 140 / 140 #1 Mediastinal Y Connected 160 / 160 #2 Left Pleural Y Connected 160 / 160 140 / 140 Other: # Bowel Movements 0 Narrative: GENERAL: Alert, oriented x3, NAD. Status post CABG x4 SKIN: Warm and dry. HEAD: Normocephalic. EYES: No scleral icterus. No injection or drainage. NECK: Supple, trachea midline. No JVD or lymphadenopathy. CARDIOVASCULAR: Regular rate and rhythm without murmurs, gallops, or rubs. Status post CABG x4. Prevana dressing to the chest present. RESPIRATORY: Breath sounds equal bilaterally. No accessory muscle use. GASTROINTESTINAL: Abdomen soft, non-tender, nondistended. MUSCULOSKELETAL: No cyanosis, or edema. BACK: Nontender without obvious deformity. No CVA tenderness. - Urinary Catheter Management Indwelling Temp Sensing Catheter Cath placed during this visit: yes, but has since been removed by the nurse Reason for continuing: Decision to DC catheter Insertion date: 10/18/18 Insertion time: 14:00 Removal date: 10/19/18 Removal time: 06:00 Results - Labs CBC & Chem 7: 10/20/18 04:45 10/20/18 04:45 Laboratory Results - last 24 hr 10/19/18 10/19/18 10/19/18 09:11 13:59 17:07 WBC RBC Hgb Hct MCV MCH MCHC RDW Plt Count MPV Prelim Diff (Auto) Neut % (Auto) Lymph % (Auto) [place] % (Auto) Eos % (Auto) Baso % (Auto) Neut # (Auto) Lymph # (Auto) [place] # (Auto) Eos # (Auto) Baso # (Auto) WBC Differential Diff Scan Differential Comment Platelet Estimate Platelet Morphology RBC Morphology Sodium Potassium Chloride Carbon Dioxide Anion Gap BUN Creatinine Estimated GFR POC Glucose 133 H 164 H 121 H Random Glucose Calcium Magnesium 10/19/18 10/20/18 10/20/18 21:56 01:53 04:45 WBC 17.5 H RBC 3.50 L Hgb 11.1 L Hct 33.2 L MCV 95.0 MCH 31.7 MCHC 33.4 RDW 13.1 Plt Count 122 L MPV 9.8 Prelim Diff (Auto) Slide review pending Neut % (Auto) 75.3 H Lymph % (Auto) 11.8 [place] % (Auto) 12.7 H Eos % (Auto) 0.1 Baso % (Auto) 0.1 Neut # (Auto) 13.2 H Lymph # (Auto) 2.1 [place] # (Auto) 2.2 H Eos # (Auto) 0.0 Baso # (Auto) 0.0 WBC Differential . Diff Scan Auto diff confirmed Differential Comment . Platelet Estimate Low L Platelet Morphology Normal RBC Morphology Normal Sodium Potassium Chloride Carbon Dioxide Anion Gap BUN Creatinine Estimated GFR POC Glucose 144 H 108 Random Glucose Calcium Magnesium 10/20/18 04:45 WBC RBC Hgb Hct MCV MCH MCHC RDW Plt Count MPV Prelim Diff (Auto) Neut % (Auto) Lymph % (Auto) [place] % (Auto) Eos % (Auto) Baso % (Auto) Neut # (Auto) Lymph # (Auto) [place] # (Auto) Eos # (Auto) Baso # (Auto) WBC Differential Diff Scan Differential Comment Platelet Estimate Platelet Morphology RBC Morphology Sodium 134 L Potassium 4.5 Chloride 102 Carbon Dioxide 25.6 Anion Gap 6 BUN 24 H Creatinine 1.26 Estimated GFR 58 L POC Glucose Random Glucose 110 H Calcium 8.5 Magnesium 2.2 - Procedures 10/16/2018 PROCEDURES: Left heart catheterization, coronary angiogram, ultrasound-guided access, moderate sedation 30 minutes. IMPRESSION: 1. Possible ST elevation myocardial infarction, more likely EKG changes consistent with previous anterior septal myocardial infarction. 2. Multivessel coronary artery disease with 100% occlusion of the right coronary artery as well as the left anterior descending and significant left main disease. 3. Ischemic cardiomyopathy with a previous ejection fraction of 20%. Assessment and Plan - Plan This patient is a 63 y/o Male with htn, dyslipidemia, history of tobacco abuse and Systolic chf with an ef of 20%. Patient presented to our ED with complaints of left sided chest pain. ED workup indicated lateral STEMI. Patient was emergently taken to cardiac Adjudication Specialist where he was found to have multivessel coronary artery disease. Patient subsequently underwent CABG x4 on 10/18/2018. ST elevation myocardial infarction Ischemic cardiomyopathy EKG consistent with lateral ischemic changes. Status post cardiac cath which showed multivessel disease. Patient is a status post CABG x4 (LUA to LAD, SVG to OM1, OM2, RCA). Chest tube in place. Continue aspirin 81 mg, atorvastatin 40 mg. Need for Plavix would be left up to CV surgery. Continue metoprolol 12.5 mg twice daily as well as amiodarone 400 mg p.o. every 8 hours. Echocardiogram on 10/17/2018 showed ejection fraction 35-40% (before revascularization ) Chronic kidney disease stage III A Baseline creatinine appears to be 1.3-1.6. Avoid nephrotoxins. Full code. SCDs. Pharmacological DVT prophylaxis when okay with CV surgery. Progress Note: Quality - AMI Clinical Trial Participant: No
--- NOTE | 2018-10-20 08:55 | P.PNCV ---
- Note Subjective/Hospital Course: A 63-year-old male transferred from [facility] secondary to chest pain. Chest pain apparently starts in his hands, moves of his arms and then comes to retrosternal chest pain. He has had this chest pain off and on for the past few days to a week, which last 2-5 minutes. More noticeable with exertion, relieved with rest. He was previously seen in 02/2018 and was found to have a very low ejection fraction of 20%. He was recommended an ischemic workup, but then he was concerned about insurance, which he is now under Medicaid plan. There was initially concern for ST elevation; however, STEMI was ruled out. He had negative troponins. He underwent cardiac catheterization by Dr. Butler today , which showed ejection fraction of 20% by his prior echo 03/2018, left main disease of 80%, the proximal LAD 70%, the mid distal LAD 100%, the diagonal 100% , the RCA 100%, the ramus 60%. We were consulted to evaluate for coronary artery bypass graft. Repeat echo EF 35-40% PAST MEDICAL HISTORY: Includes ischemic cardiomyopathy, hypertension, hyperlipidemia, history of hepatitis, which was apparently treated with medication, tobacco abuse. The patient has been smoking since the age of 16. Now, he is down to half a pack. He was up to a pack per day. The patient has chronic kidney disease with GFR 55. 10/17 pt pain free, scheduled for surgery second case in am 2500cc crystalloid Date of procedure: 10/18/18 Procedure: CABG x 4 LUA to LAd - fair SVG to OM1 - good SVG to OM2 - good SVG to RCA - good EVH DEIRDRE extubated after surgery 10/19 doing well, up in chair weaning 02 start BB, on amiodarone , ASA 12/1 Doing well Chest tubes continue to drain To reevaluate for removal in a.m. Discharge planning Objective: Vital Signs - 24 hr 10/19/18 12:00 10/19/18 12:46 10/19/18 12:52 Temperature 98.6 F Pulse Rate 81 75 Respiratory Rate 16 18 Blood Pressure 128/62 Pulse Oximetry 96 96 10/19/18 13:45 10/19/18 14:00 10/19/18 14:36 Temperature Pulse Rate 74 95 H 86 Respiratory Rate 18 Blood Pressure Pulse Oximetry 10/19/18 15:00 10/19/18 15:46 10/19/18 16:00 Temperature 98.2 F Pulse Rate 82 75 Respiratory Rate 18 18 Blood Pressure 135/68 Pulse Oximetry 95 10/19/18 17:00 10/19/18 18:00 10/19/18 19:00 Temperature Pulse Rate 79 81 77 Respiratory Rate Blood Pressure Pulse Oximetry 10/19/18 20:00 10/19/18 21:00 10/19/18 21:03 Temperature 98.9 F Pulse Rate 86 94 H 91 H Respiratory Rate 18 19 Blood Pressure 135/68 Pulse Oximetry 96 94 L 10/19/18 22:00 10/19/18 23:00 10/20/18 00:00 Temperature 99 F Pulse Rate 102 H 73 79 Respiratory Rate 18 Blood Pressure 134/63 Pulse Oximetry 97 10/20/18 01:00 10/20/18 02:00 10/20/18 03:00 Temperature Pulse Rate 90 90 78 Respiratory Rate Blood Pressure Pulse Oximetry 10/20/18 04:00 10/20/18 05:00 10/20/18 05:41 Temperature 98.7 F Pulse Rate 88 86 78 Respiratory Rate 18 Blood Pressure 141/65 H Pulse Oximetry 92 L 10/20/18 07:00 10/20/18 07:50 Temperature Pulse Rate 83 99 H Respiratory Rate 16 Blood Pressure Pulse Oximetry 93 L Labs: Laboratory Results - last 12 hr 10/19/18 10/20/18 10/20/18 21:56 01:53 04:45 WBC 17.5 H RBC 3.50 L Hgb 11.1 L Hct 33.2 L MCV 95.0 MCH 31.7 MCHC 33.4 RDW 13.1 Plt Count 122 L MPV 9.8 Prelim Diff (Auto) Slide review pending Neut % (Auto) 75.3 H Lymph % (Auto) 11.8 [place] % (Auto) 12.7 H Eos % (Auto) 0.1 Baso % (Auto) 0.1 Neut # (Auto) 13.2 H Lymph # (Auto) 2.1 [place] # (Auto) 2.2 H Eos # (Auto) 0.0 Baso # (Auto) 0.0 WBC Differential . Diff Scan Auto diff confirmed Differential Comment . Platelet Estimate Low L Platelet Morphology Normal RBC Morphology Normal Sodium Potassium Chloride Carbon Dioxide Anion Gap BUN Creatinine Estimated GFR POC Glucose 144 H 108 Random Glucose Calcium Magnesium 10/20/18 04:45 WBC RBC Hgb Hct MCV MCH MCHC RDW Plt Count MPV Prelim Diff (Auto) Neut % (Auto) Lymph % (Auto) [place] % (Auto) Eos % (Auto) Baso % (Auto) Neut # (Auto) Lymph # (Auto) [place] # (Auto) Eos # (Auto) Baso # (Auto) WBC Differential Diff Scan Differential Comment Platelet Estimate Platelet Morphology RBC Morphology Sodium 134 L Potassium 4.5 Chloride 102 Carbon Dioxide 25.6 Anion Gap 6 BUN 24 H Creatinine 1.26 Estimated GFR 58 L POC Glucose Random Glucose 110 H Calcium 8.5 Magnesium 2.2 Result Diagrams: 10/20/18 04:45 10/20/18 04:45 - Plan (4) Unstable angina Plan: on ASA, statin BB OOB ambulate pain control leave chest tubes in stable to transfer to stepdown wean 02 as tolerated
[2018-10-20] MEDS: Polyethylene Glycol 3350 17 GM Packet PO SCH (09:36)
[2018-10-20] MEDS: Metoprolol Tartrate 25 MG Tablet PO SCH ×2 (09:38→20:25)
[2018-10-20] MEDS: Multivitamin/Minerals Therapeutic Tablet PO SCH (09:39)
[2018-10-20] MEDS: Docusate Sodium 100 MG Capsule PO SCH ×2 (09:39→20:25)
--- NOTE | 2018-10-20 15:39 | P.PNCA ---
Subjective Interval history: No events overnight Feels well Chest tubes in place Medications and Allergies Active Medications: Active Medications Al Hydroxide/Mg Hydroxide (Milk Of [place] Liq) 30 ml PO DAILY [facility] Last Admin: 10/20/18 09:37 Dose: 30 ml Albuterol (Duoneb Neb (Prn)) 1 ampul NEB Q2HR NEB PRN PRN Reason: WHEEZING Albuterol (Duoneb Neb (Tarun)) 1 ampul NEB Q6HR WHILE AWAKE NEB [facility] Stop: 10/21/18 13:59 Last Admin: 10/20/18 12:57 Dose: 1 ampul Amiodarone HCl (Cordarone) 400 mg PO Q8HR [facility] Last Admin: 10/20/18 13:24 Dose: 400 mg Aspirin (Aspirin Chew) 81 mg PO DAILY [facility] Last Admin: 10/20/18 09:39 Dose: 81 mg Atorvastatin Calcium (Lipitor) 40 mg PO DAILY [facility] Last Admin: 10/20/18 09:39 Dose: 40 mg Bisacodyl (Dulcolax Supp) 10 mg RECTAL PRN PRN PRN Reason: SEE LABEL COMMENTS Chlorhexidine Gluconate (Hibiclens 4% Topical) 1 applicatio 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 [facility] Stop: 10/22/18 10:31 Dextrose (D50w Vial) 50 ml IV.PUSH UNSCH PRN PRN Reason: PER HYPOGLYCEMIA PROTOCOL Docusate Sodium (Colace) 100 mg PO BID [facility] Last Admin: 10/20/18 09:39 Dose: 100 mg Glucagon (Glucagon Inj) 1 mg OTHER PRN PRN PRN Reason: For hypoglycemia Insulin Aspart (Novolog Insulin Correctional Sugar Inj) 0 unit SQ ACHS [facility]; Protocol Last Admin: 10/20/18 13:24 Dose: 3 unit Metoprolol Tartrate (Lopressor) 12.5 mg PO BID [facility] Last Admin: 10/20/18 09:38 Dose: 12.5 mg Multivitamins/Minerals (Theragran-M) 1 tab PO DAILY [facility] Last Admin: 10/20/18 09:39 Dose: 1 tab Ondansetron HCl (Zofran Inj) 4 mg IV.PUSH Q6H PRN PRN Reason: NAUSEA OR VOMITING Oxycodone/Acetaminophen (Percocet 5/325 Mg) 1 tab PO Q3H PRN PRN Reason: PAIN SCALE 1 TO 5 Last Admin: 10/20/18 08:18 Dose: 1 tab Pantoprazole Sodium (Protonix) 40 mg PO DAILY@06 [facility] Last Admin: 10/20/18 05:00 Dose: 40 mg Polyethylene Glycol (Miralax) 17 gm PO DAILY [facility] Last Admin: 10/20/18 09:36 Dose: 17 gm Sennosides (Senokot) 8.6 mg PO HS [facility] Last Admin: 10/19/18 20:54 Dose: 8.6 mg Sodium Biphosphate/Sodium Phosphate (Fleets Enema (Adult)) 118 ml RECTAL UNSCH PRN PRN Reason: SEE LABEL COMMENTS Sodium Chloride (Ns Flush) 2 ml IV.FLUSH BID [facility] Last Admin: 10/20/18 09:40 Dose: 2 ml Sodium Chloride (Ns Flush) 2 ml IV.FLUSH PRN PRN PRN Reason: FLUSH AFTER USING IV ACCESS Allergies Allergy/AdvReac Type Severity Reaction Status Date / Time No Known Allergies Allergy Verified 10/16/18 06:46 Home Medications Medication Instructions Recorded Confirmed Type atorvastatin 40 mg PO DAILY 10/16/18 10/16/18 History carvedilol 12.5 mg PO BID 10/16/18 10/16/18 History furosemide 20 mg PO DAILY 10/16/18 10/16/18 History lisinopril 40 mg PO DAILY 10/16/18 10/16/18 History Physical Exam Vital signs: Vital Signs 10/19/18 15:46 10/19/18 16:00 10/19/18 17:00 Temperature 98.2 F Pulse Rate 75 79 Respiratory Rate 18 18 Blood Pressure 135/68 Pulse Oximetry 95 10/19/18 18:00 10/19/18 19:00 10/19/18 20:00 Temperature 98.9 F Pulse Rate 81 77 86 Respiratory Rate 18 Blood Pressure 135/68 Pulse Oximetry 96 10/19/18 21:00 10/19/18 21:03 10/19/18 22:00 Temperature Pulse Rate 94 H 91 H 102 H Respiratory Rate 19 Blood Pressure Pulse Oximetry 94 L 10/19/18 23:00 10/20/18 00:00 10/20/18 01:00 Temperature 99 F Pulse Rate 73 79 90 Respiratory Rate 18 Blood Pressure 134/63 Pulse Oximetry 97 10/20/18 02:00 10/20/18 03:00 10/20/18 04:00 Temperature 98.7 F Pulse Rate 90 78 88 Respiratory Rate 18 Blood Pressure 141/65 H Pulse Oximetry 92 L 10/20/18 05:00 10/20/18 05:41 10/20/18 07:00 Temperature Pulse Rate 86 78 83 Respiratory Rate Blood Pressure Pulse Oximetry 10/20/18 07:50 10/20/18 08:00 10/20/18 09:00 Temperature 98.6 F Pulse Rate 99 H 86 82 Respiratory Rate 16 18 Blood Pressure 166/72 H Pulse Oximetry 93 L 97 Intake & Output 10/19/18 10/20/18 10/20/18 18:59 06:59 18:59 Intake Total 670 / 670 530 / 530 Output Total 720 / 720 640 / 640 Balance -50 / -50 -110 / -110 Weight 92.3 kg Intake: IV 250 / 250 50 / 50 Precedex Inj 200 MCG In NS Inj 50 / 50 48 ML @ 0.2 MCG/KG/HR 4.42 mls/ hr IV.CONT TITRATE PRN Rx#: [id number] Ofirmev Inj 1,000 mg In 100 ml 100 / 100 @ 400 mls/hr IV.SIG Q6H TARUN Rx# :[id number] Ancef 1 GM Premix Inj 1 gm In 100 / 100 50 / 50 50 ml @ 200 mls/hr IV.SIG Q8H TARUN Rx#:[id number] Oral 420 / 420 480 / 480 Output: Urine 400 / 400 500 / 500 Chest Tube Drainage 320 / 320 140 / 140 #1 Mediastinal Y Connected 160 / 160 #2 Left Pleural Y Connected 160 / 160 140 / 140 Other: # Bowel Movements 0 Narrative: GENERAL: Alert, oriented x3, NAD. Status post CABG x4 SKIN: Warm and dry. HEAD: Normocephalic. EYES: No scleral icterus. No injection or drainage. NECK: Supple, trachea midline. No JVD or lymphadenopathy. CARDIOVASCULAR: Regular rate and rhythm without murmurs, gallops, or rubs. Status post CABG x4. Prevana dressing to the chest present. RESPIRATORY: Breath sounds equal bilaterally. No accessory muscle use. GASTROINTESTINAL: Abdomen soft, non-tender, nondistended. MUSCULOSKELETAL: No cyanosis, or edema. BACK: Nontender without obvious deformity. No CVA tenderness. - Urinary Catheter Management Indwelling Temp Sensing Catheter Cath placed during this visit: yes, but has since been removed by the nurse Reason for continuing: Decision to DC catheter Insertion date: 10/18/18 Insertion time: 14:00 Removal date: 10/19/18 Removal time: 06:00 Results 10/20/18 04:45 10/20/18 04:45 Cardiac Enzymes 10/19/18 Range/Units 04:12 AST 46 H (15-37) U/L CBC 10/19/18 10/20/18 Range/Units 04:12 04:45 WBC 10.9 17.5 H (4.0-11.0) th/mm3 RBC 3.52 L 3.50 L (4.50-5.90) mil/mm3 Hgb 11.6 L D 11.1 L (13.0-17.0) gm/dL Hct 34.1 L 33.2 L (39.0-51.0) % Plt Count 95 L 122 L (150-450) th/mm3 Neut # (Auto) 9.4 H 13.2 H (1.8-7.7) th/mm3 Lymph # (Auto) 0.8 L 2.1 (1.0-4.8) th/mm3 Story # (Auto) 0.6 2.2 H (0.0-0.9) th/mm3 Eos # (Auto) 0.0 0.0 (0.0-0.4) th/mm3 Baso # (Auto) 0.0 0.0 (0.0-0.2) th/mm3 Comprehensive Metabolic Panel 10/19/18 10/20/18 Range/Units 04:12 04:45 Sodium 139 134 L (136-145) meq/L Potassium 4.6 4.5 (3.5-5.1) meq/L Chloride 107 102 (98-107) meq/L Carbon Dioxide 22.6 25.6 (21.0-32.0) meq/L BUN 24 H 24 H (7-18) mg/dL Creatinine 1.23 1.26 (0.60-1.30) mg/dL Calcium 7.9 L D 8.5 (8.5-10.1) mg/dL AST 46 H (15-37) U/L ALT 33 (12-78) U/L Alkaline Phosphatase 41 L (45-117) U/L Total Protein 6.1 L D (6.4-8.2) g/dL Albumin 3.1 L (3.4-5.0) g/dL Intake and Output 10/20/18 10/20/18 10/20/18 06:59 14:59 22:59 Intake Total 530 / 530 Output Total 640 / 640 Balance -110 / -110 Intake: IV 50 / 50 Ancef 1 GM Premix Inj 1 gm In 50 / 50 50 ml @ 200 mls/hr IV.SIG Q8H TARUN Rx#:[id number] Oral 480 / 480 Output: Urine 500 / 500 Chest Tube Drainage 140 / 140 #2 Left Pleural Y Connected 140 / 140 Other: Weight 92.3 kg - Imaging and Cardiology Imaging: Impressions Chest X-Ray 10/18/18 18:00 CONCLUSION: Support apparatus in good position. Basilar airspace disease and small left effusion. No pneumothorax. Chest X-Ray 10/19/18 05:00 CONCLUSION: Left chest tube remains present and no pneumothorax is visualized. Otherwise, no significant abnormality is identified. Assessment and Plan - Assessment (1) Unstable angina Code(s): I20.0 - Unstable angina Status: Acute (2) CAD (coronary artery disease), [place] coronary artery Code(s): I25.10 - Atherosclerotic heart disease of [place] coronary artery without angina pectoris Status: Acute (3) Ischemic cardiomyopathy Code(s): I25.5 - Ischemic cardiomyopathy Status: Chronic - Plan 1) CAD/[place] Multi-vessel CAD CABGx4 Doing well 2) ICM EF 35-40% Better than previous cardiomyopathy 3) ASA/BB/Statin/Amiodarone 4) Chest tubes possible out tomorrow Progress Note: Quality - AMI Clinical Trial Participant: No
[2018-10-21] MEDS: Amiodarone 200 MG Tablet PO SCH ×3 (05:29→21:35)
--- NOTE | 2018-10-21 07:55 | P.PN ---
Subjective Interval history: Follow up for multivessel CAD status post CABG x4. Patient is currently doing well. Chest tube is in place. No significant chest pain, shortness of breath, fever or chills. Physical Exam Vital signs: Vital Signs 10/20/18 08:00 10/20/18 09:00 10/20/18 10:00 Temperature 98.6 F Pulse Rate 86 82 84 Respiratory Rate 18 Blood Pressure 166/72 H Pulse Oximetry 97 10/20/18 11:00 10/20/18 12:00 10/20/18 12:57 Temperature 98.7 F Pulse Rate 90 90 89 Respiratory Rate 18 16 Blood Pressure 148/68 H Pulse Oximetry 97 10/20/18 13:00 10/20/18 14:00 10/20/18 15:00 Temperature 98.6 F Pulse Rate 86 85 102 H Respiratory Rate 18 Blood Pressure 132/62 Pulse Oximetry 96 10/20/18 16:00 10/20/18 17:00 10/20/18 18:00 Temperature Pulse Rate 85 85 85 Respiratory Rate Blood Pressure Pulse Oximetry 10/20/18 19:00 10/20/18 20:00 10/20/18 20:47 Temperature 98.9 F Pulse Rate 97 H 82 83 Respiratory Rate 18 18 Blood Pressure 137/65 Pulse Oximetry 96 90 L 10/20/18 21:00 10/20/18 22:00 10/20/18 23:00 Temperature 99 F Pulse Rate 80 76 73 Respiratory Rate 18 Blood Pressure 143/67 H Pulse Oximetry 96 10/21/18 00:00 10/21/18 01:00 10/21/18 02:00 Temperature Pulse Rate 98 H 74 76 Respiratory Rate Blood Pressure Pulse Oximetry 10/21/18 03:00 10/21/18 04:00 10/21/18 05:00 Temperature 99.2 F Pulse Rate 77 76 74 Respiratory Rate 18 Blood Pressure 140/63 Pulse Oximetry 92 L 10/21/18 06:00 Temperature Pulse Rate 76 Respiratory Rate Blood Pressure Pulse Oximetry Intake & Output 10/20/18 10/21/18 10/21/18 18:59 06:59 18:59 Intake Total 1025 / 1025 480 / 480 Output Total 1000 / 1000 1030 / 1030 Balance 25 / 25 -550 / -550 Weight 91 kg Intake: IV 50 / 50 Ancef 1 GM Premix Inj 1 gm In 50 / 50 50 ml @ 200 mls/hr IV.SIG Q8H TARUN Rx#:[id number] Oral 975 / 975 480 / 480 Output: Urine 850 / 850 950 / 950 Chest Tube Drainage 150 / 150 80 / 80 #1 Mediastinal Y Connected 150 / 150 #2 Left Pleural Y Connected 80 / 80 Other: # Bowel Movements 0 0 Narrative: GENERAL: Alert, oriented x3, NAD. Status post CABG x4 SKIN: Warm and dry. HEAD: Normocephalic. EYES: No scleral icterus. No injection or drainage. NECK: Supple, trachea midline. No JVD or lymphadenopathy. CARDIOVASCULAR: Regular rate and rhythm without murmurs, gallops, or rubs. Status post CABG x4. Prevana dressing to the chest present. RESPIRATORY: Breath sounds equal bilaterally. No accessory muscle use. GASTROINTESTINAL: Abdomen soft, non-tender, nondistended. MUSCULOSKELETAL: No cyanosis, or edema. BACK: Nontender without obvious deformity. No CVA tenderness. - Urinary Catheter Management Indwelling Temp Sensing Catheter Cath placed during this visit: yes, but has since been removed by the nurse Reason for continuing: Decision to DC catheter Insertion date: 10/18/18 Insertion time: 14:00 Removal date: 10/19/18 Removal time: 06:00 Results - Labs CBC & Chem 7: 10/20/18 04:45 10/20/18 04:45 Laboratory Results - last 24 hr 10/18/18 10/20/18 10/20/18 07:45 11:26 16:51 POC Glucose 134 H 90 MTS Gel Crossmatch See Detail 10/20/18 20:30 POC Glucose 117 H MTS Gel Crossmatch - Procedures 10/16/2018 PROCEDURES: Left heart catheterization, coronary angiogram, ultrasound-guided access, moderate sedation 30 minutes. IMPRESSION: 1. Possible ST elevation myocardial infarction, more likely EKG changes consistent with previous anterior septal myocardial infarction. 2. Multivessel coronary artery disease with 100% occlusion of the right coronary artery as well as the left anterior descending and significant left main disease. 3. Ischemic cardiomyopathy with a previous ejection fraction of 20%. Assessment and Plan - Plan This patient is a 63 y/o Male with htn, dyslipidemia, history of tobacco abuse and Systolic chf with an ef of 20%. Patient presented to our ED with complaints of left sided chest pain. ED workup indicated lateral STEMI. Patient was emergently taken to cardiac Computer Training Specialist where he was found to have multivessel coronary artery disease. Patient subsequently underwent CABG x4 on 10/18/2018. ST elevation myocardial infarction Ischemic cardiomyopathy EKG consistent with lateral ischemic changes. Status post cardiac cath which showed multivessel disease. Patient is a status post CABG x4 (LUA to LAD, SVG to OM1, OM2, RCA). Chest tube likely to be discontinued today Continue aspirin 81 mg, atorvastatin 40 mg. Need for Plavix would be left up to CV surgery. Continue metoprolol 12.5 mg twice daily as well as amiodarone 400 mg p.o. every 8 hours. Echocardiogram on 10/17/2018 showed ejection fraction 35-40% (before revascularization ) Chronic kidney disease stage III A Baseline creatinine appears to be 1.3-1.6. Avoid nephrotoxins. Full code. SCDs. Discharge plan: Chest tube to be discontinued today. Likely discharge home tomorrow. Progress Note: Quality - AMI Clinical Trial Participant: No
--- NOTE | 2018-10-21 08:23 | P.PNCV ---
- Note Subjective/Hospital Course: A 63-year-old male transferred from [facility] secondary to chest pain. Chest pain apparently starts in his hands, moves of his arms and then comes to retrosternal chest pain. He has had this chest pain off and on for the past few days to a week, which last 2-5 minutes. More noticeable with exertion, relieved with rest. He was previously seen in 02/2018 and was found to have a very low ejection fraction of 20%. He was recommended an ischemic workup, but then he was concerned about insurance, which he is now under Medicaid plan. There was initially concern for ST elevation; however, STEMI was ruled out. He had negative troponins. He underwent cardiac catheterization by Dr. Butler today , which showed ejection fraction of 20% by his prior echo 03/2018, left main disease of 80%, the proximal LAD 70%, the mid distal LAD 100%, the diagonal 100% , the RCA 100%, the ramus 60%. We were consulted to evaluate for coronary artery bypass graft. Repeat echo EF 35-40% PAST MEDICAL HISTORY: Includes ischemic cardiomyopathy, hypertension, hyperlipidemia, history of hepatitis, which was apparently treated with medication, tobacco abuse. The patient has been smoking since the age of 16. Now, he is down to half a pack. He was up to a pack per day. The patient has chronic kidney disease with GFR 55. 10/17 pt pain free, scheduled for surgery second case in am 2500cc crystalloid Date of procedure: 10/18/18 Procedure: CABG x 4 LUA to LAd - fair SVG to OM1 - good SVG to OM2 - good SVG to RCA - good EVH DEIRDRE extubated after surgery 10/19 doing well, up in chair weaning 02 start BB, on amiodarone , ASA 12/1 Doing well Chest tubes continue to drain To reevaluate for removal in a.m. Discharge planning 10/21 Doing well Remove chest tubes today Likely discharge in a.m. Objective: Vital Signs - 24 hr 10/20/18 09:00 10/20/18 10:00 10/20/18 11:00 Temperature Pulse Rate 82 84 90 Respiratory Rate Blood Pressure Pulse Oximetry 10/20/18 12:00 10/20/18 12:57 10/20/18 13:00 Temperature 98.7 F Pulse Rate 90 89 86 Respiratory Rate 18 16 Blood Pressure 148/68 H Pulse Oximetry 97 10/20/18 14:00 10/20/18 15:00 10/20/18 16:00 Temperature 98.6 F Pulse Rate 85 102 H 85 Respiratory Rate 18 Blood Pressure 132/62 Pulse Oximetry 96 10/20/18 17:00 10/20/18 18:00 10/20/18 19:00 Temperature 98.9 F Pulse Rate 85 85 97 H Respiratory Rate 18 Blood Pressure 137/65 Pulse Oximetry 96 10/20/18 20:00 10/20/18 20:47 10/20/18 21:00 Temperature Pulse Rate 82 83 80 Respiratory Rate 18 Blood Pressure Pulse Oximetry 90 L 10/20/18 22:00 10/20/18 23:00 10/21/18 00:00 Temperature 99 F Pulse Rate 76 73 98 H Respiratory Rate 18 Blood Pressure 143/67 H Pulse Oximetry 96 10/21/18 01:00 10/21/18 02:00 10/21/18 03:00 Temperature 99.2 F Pulse Rate 74 76 77 Respiratory Rate 18 Blood Pressure 140/63 Pulse Oximetry 92 L 10/21/18 04:00 10/21/18 05:00 10/21/18 06:00 Temperature Pulse Rate 76 74 76 Respiratory Rate Blood Pressure Pulse Oximetry Labs: Laboratory Results - last 12 hr 10/18/18 10/20/18 07:45 20:30 POC Glucose 117 H MTS Gel Crossmatch See Detail Result Diagrams: 10/20/18 04:45 10/20/18 04:45 - Plan (4) Unstable angina Plan: on ASA, statin BB OOB ambulate pain control leave chest tubes in stable to transfer to stepdown wean 02 as tolerated
[2018-10-21] MEDS: Metoprolol Tartrate 25 MG Tablet PO SCH ×2 (09:22→20:30)
[2018-10-21] MEDS: Multivitamin/Minerals Therapeutic Tablet PO SCH (09:22)
[2018-10-21] MEDS: Docusate Sodium 100 MG Capsule PO SCH ×2 (09:22→20:29)
[2018-10-21] MEDS: Insulin NovoLOG Aspart Correctional Sugar Inj SQ SCH ×4 (09:22→21:34)
[2018-10-21] MEDS: Polyethylene Glycol 3350 17 GM Packet PO SCH (09:23)
--- NOTE | 2018-10-21 13:17 | P.PNCA ---
Subjective Interval history: No events overnight Chest tube out Medications and Allergies Active Medications: Active Medications Al Hydroxide/Mg Hydroxide (Milk Of [place] Nicoleq) [address] [facility] Last Admin: 10/21/18 09:23 Dose: Not Given Albuterol (Duoneb Neb (Prn)) 1 ampul NEB Q2HR NEB PRN PRN Reason: WHEEZING Albuterol (Duoneb Neb (Cindy)) 1 ampul NEB Q6HR WHILE AWAKE NEB [facility] Stop: 10/21/18 13:59 Last Admin: 10/21/18 08:32 Dose: 1 ampul Amiodarone HCl (Cordarone) [address] [facility] Last Admin: 10/21/18 13:10 Dose: 400 mg Aspirin (Aspirin Chew) [address] [facility] Last Admin: 10/21/18 09:22 Dose: 81 mg Atorvastatin Calcium (Lipitor) [address] 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 Stop: 10/22/18 10:31 Dextrose (D50w Vial) 50 ml IV.PUSH UNSCH PRN PRN Reason: PER HYPOGLYCEMIA PROTOCOL Docusate Sodium (Colace) [address] [facility] Last Admin: 10/21/18 09:22 Dose: 100 mg Glucagon (Glucagon Inj) 1 mg OTHER PRN PRN PRN Reason: For hypoglycemia Insulin Aspart (Novolog Insulin Correctional Sugar Inj) [address] [facility]; Protocol Last Admin: 10/21/18 12:35 Dose: Not Given Metoprolol Tartrate (Lopressor) 12.[address] [facility] Last Admin: 10/21/18 09:22 Dose: 12.5 mg Multivitamins/Minerals (Theragran-M) [address] [facility] Last Admin: 10/21/18 09:22 Dose: 1 tab Ondansetron HCl (Zofran Inj) 4 mg IV.PUSH Q6H PRN PRN Reason: NAUSEA OR VOMITING Oxycodone/Acetaminophen (Percocet 5/325 Mg) 1 tab PO Q3H PRN PRN Reason: PAIN SCALE 1 TO 5 Last Admin: 10/21/18 02:19 Dose: 1 tab Pantoprazole Sodium (Protonix) 40 mg PO DAILY@06 [facility] Last Admin: 10/21/18 05:29 Dose: 40 mg Polyethylene Glycol (Miralax) [address] [facility] Last Admin: 10/21/18 09:23 Dose: Not Given Sennosides (Senokot) 8.[address] [facility] Last Admin: 10/20/18 20:26 Dose: Not Given Sodium Biphosphate/Sodium Phosphate (Fleets Enema (Adult)) 118 ml RECTAL UNSCH PRN PRN Reason: SEE LABEL COMMENTS Sodium Chloride (Ns Flush) [address] [facility] Last Admin: 10/21/18 09:23 Dose: 2 ml Sodium Chloride (Ns Flush) 2 ml IV.FLUSH PRN PRN PRN Reason: FLUSH AFTER USING IV ACCESS Allergies Allergy/AdvReac Type Severity Reaction Status Date / Time No Known Allergies Allergy Verified 10/16/18 06:46 Home Medications Medication Instructions Recorded Confirmed Type atorvastatin 40 mg PO DAILY 10/16/18 10/16/18 History carvedilol 12.5 mg PO BID 10/16/18 10/16/18 History furosemide 20 mg PO DAILY 10/16/18 10/16/18 History lisinopril 40 mg PO DAILY 10/16/18 10/16/18 History Physical Exam Vital signs: Vital Signs 10/20/18 14:00 10/20/18 15:00 10/20/18 16:00 Temperature 98.6 F Pulse Rate 85 102 H 85 Respiratory Rate 18 Blood Pressure 132/62 Pulse Oximetry 96 10/20/18 17:00 10/20/18 18:00 10/20/18 19:00 Temperature 98.9 F Pulse Rate 85 85 97 H Respiratory Rate 18 Blood Pressure 137/65 Pulse Oximetry 96 10/20/18 20:00 10/20/18 20:47 10/20/18 21:00 Temperature Pulse Rate 82 83 80 Respiratory Rate 18 Blood Pressure Pulse Oximetry 90 L 10/20/18 22:00 10/20/18 23:00 10/21/18 00:00 Temperature 99 F Pulse Rate 76 73 98 H Respiratory Rate 18 Blood Pressure 143/67 H Pulse Oximetry 96 10/21/18 01:00 10/21/18 02:00 10/21/18 03:00 Temperature 99.2 F Pulse Rate 74 76 77 Respiratory Rate 18 Blood Pressure 140/63 Pulse Oximetry 92 L 10/21/18 04:00 10/21/18 05:00 10/21/18 06:00 Temperature Pulse Rate 76 74 76 Respiratory Rate Blood Pressure Pulse Oximetry 10/21/18 07:00 10/21/18 08:00 10/21/18 08:32 Temperature 99.4 F Pulse Rate 95 H 79 84 Respiratory Rate 16 16 Blood Pressure 144/67 H Pulse Oximetry 94 L 94 L 10/21/18 09:00 10/21/18 10:00 10/21/18 11:00 Temperature 98.7 F Pulse Rate 95 H 78 87 Respiratory Rate 21 Blood Pressure 113/57 L Pulse Oximetry 94 L 10/21/18 12:00 Temperature Pulse Rate 76 Respiratory Rate Blood Pressure Pulse Oximetry Intake & Output 10/20/18 10/21/18 10/21/18 18:59 06:59 18:59 Intake Total 1025 / 1025 480 / 480 Output Total 1000 / 1000 1030 / 1030 Balance 25 / 25 -550 / -550 Weight 91 kg Intake: IV 50 / 50 Ancef 1 GM Premix Inj 1 gm In 50 / 50 50 ml @ 200 mls/hr IV.SIG Q8H CINDY Rx#:[id number] Oral 975 / 975 480 / 480 Output: Urine 850 / 850 950 / 950 Chest Tube Drainage 150 / 150 80 / 80 #1 Mediastinal Y Connected 150 / 150 #2 Left Pleural Y Connected 80 / 80 Other: # Bowel Movements 0 0 Narrative: GENERAL: Alert, oriented x3, NAD. Status post CABG x4 SKIN: Warm and dry. HEAD: Normocephalic. EYES: No scleral icterus. No injection or drainage. NECK: Supple, trachea midline. No JVD or lymphadenopathy. CARDIOVASCULAR: Regular rate and rhythm without murmurs, gallops, or rubs. Status post CABG x4. Prevana dressing to the chest present. RESPIRATORY: Breath sounds equal bilaterally. No accessory muscle use. GASTROINTESTINAL: Abdomen soft, non-tender, nondistended. MUSCULOSKELETAL: No cyanosis, or edema. BACK: Nontender without obvious deformity. No CVA tenderness. - Urinary Catheter Management Indwelling Temp Sensing Catheter Cath placed during this visit: yes, but has since been removed by the nurse Reason for continuing: Decision to DC catheter Insertion date: 10/18/18 Insertion time: 14:00 Removal date: 10/19/18 Removal time: 06:00 Results 10/20/18 04:45 10/20/18 04:45 CBC 10/20/18 Range/Units 04:45 WBC 17.5 H (4.0-11.0) th/mm3 RBC 3.50 L (4.50-5.90) mil/mm3 Hgb 11.1 L (13.0-17.0) gm/dL Hct 33.2 L (39.0-51.0) % Plt Count 122 L (150-450) th/mm3 Neut # (Auto) 13.2 H (1.8-7.7) th/mm3 Lymph # (Auto) 2.1 (1.0-4.8) th/mm3 [place] # (Auto) 2.2 H (0.0-0.9) th/mm3 Eos # (Auto) 0.0 (0.0-0.4) th/mm3 Baso # (Auto) 0.0 (0.0-0.2) th/mm3 Comprehensive Metabolic Panel 10/20/18 Range/Units 04:45 Sodium 134 L (136-145) meq/L Potassium 4.5 (3.5-5.1) meq/L Chloride 102 (98-107) meq/L Carbon Dioxide 25.6 (21.0-32.0) meq/L BUN 24 H (7-18) mg/dL Creatinine 1.26 (0.60-1.30) mg/dL Calcium 8.5 (8.5-10.1) mg/dL Intake and Output 10/20/18 10/21/18 10/21/18 22:59 06:59 14:59 Intake Total 975 / 975 480 / 480 Output Total 1000 / 1000 1030 / 1030 Balance -25 / -25 -550 / -550 Intake: Oral 975 / 975 480 / 480 Output: Urine 850 / 850 950 / 950 Chest Tube Drainage 150 / 150 80 / 80 #1 Mediastinal Y Connected 150 / 150 #2 Left Pleural Y Connected 80 / 80 Other: # Bowel Movements 0 0 Weight 91 kg Assessment and Plan - Assessment (1) Unstable angina Code(s): I20.0 - Unstable angina Status: Acute (2) CAD (coronary artery disease), [place] coronary artery Code(s): I25.10 - Atherosclerotic heart disease of [place] coronary artery without angina pectoris Status: Acute (3) Ischemic cardiomyopathy Code(s): I25.5 - Ischemic cardiomyopathy Status: Chronic - Plan 1) CAD/[place] Multi-vessel CAD CABGx4 Doing well 2) ICM EF 35-40% Better than previous cardiomyopathy 3) ASA/BB/Statin/Amiodarone 4) Chest tubes out 5) Possible discharge tomorrow Progress Note: Quality - AMI Clinical Trial Participant: No
[2018-10-22] MEDS ORDERED: Amiodarone Inj 150 MG in Dextrose 5% in Water Inj 97 ML IV.SIG ONE ×2 (00:25)
[2018-10-22] MEDS: Amiodarone 200 MG Tablet PO SCH ×3 (05:23→22:08)
[2018-10-22] MEDS: Insulin NovoLOG Aspart Correctional Sugar Inj SQ SCH ×4 (08:49→21:05)
[2018-10-22] MEDS: Docusate Sodium 100 MG Capsule PO SCH ×2 (08:50→21:01)
[2018-10-22] MEDS: Multivitamin/Minerals Therapeutic Tablet PO SCH (08:50)
[2018-10-22] MEDS: Metoprolol Tartrate 25 MG Tablet PO SCH ×2 (08:51→21:02)
[2018-10-22] MEDS: Polyethylene Glycol 3350 17 GM Packet PO SCH (08:51)
[2018-10-22 09:35] LABS: Hematocrit 35.2 % (39.0-51.0); Hemoglobin 11.8 gm/dL (13.0-17.0); Mean Corpuscular HGB Conc 33.4 % (32.0-36.0); Mean Corpuscular Hemoglobin 32.7 pg (27.0-34.0); Mean Corpuscular Volume 97.7 fL (80.0-100.0); Mean Platelet Volume 9.7 fL (7.0-11.0); Platelet Count 141 th/mm3 (150-450); Red Blood Count 3.61 mil/mm3 (4.50-5.90); Red Cell Distribution Width 13.6 % (11.6-17.2); White Blood Count 9.5 th/mm3 (4.0-11.0)
--- NOTE | 2018-10-22 09:53 | XR ---
EXAM DATE: 10/22/2018 9:28 AM EST AGE/SEX: 63 years / Male INDICATIONS: Leukocytosis. CLINICAL DATA: This is the patient's initial encounter. Patient reports that signs and symptoms have been present for 4 - 6 days and indicates a pain score of 0/10. MEDICAL/SURGICAL HISTORY: Hypertension. Chronic obstructive pulmonary disease. CABG. [place] [facility] [place] [facility] [place], [place]18[place]. [facility], EST PA & LAT, 01/19/2018. . FINDINGS: 2 portable AP views of the chest demonstrate normal size cardiac silhouette post median sternotomy. E KG lines overlie the patient. No pneumothorax is identified. There is questionable hazy pleural-based opacity on the left. There is a linear opacities at the lung bases. Bones demonstrate no acute findi ng. CONCLUSION: Linear opacities at the lung bases favoring subsegmental atelectasis. Questionable hazy pleural-based opacity on the left could indicate a small effusion. These findings could be further characterized w ith good inspiratory formal PA and lateral views of the chest, if needed. Electronically signed by: Yung Joseph MD 10/22/2018 9:52 AM EST
[2018-10-22 10:19] LABS: Calcium 8.6 mg/dL (8.5-10.1); Carbon Dioxide 26.4 meq/L (21.0-32.0); Magnesium 2.2 mg/dL (1.5-2.5); Potassium 4.3 meq/L (3.5-5.1)
[2018-10-22 10:30] LABS: Phosphorus 2.9 mg/dL (2.5-4.9)
--- NOTE | 2018-10-22 11:27 | P.PN ---
Subjective Interval history: Follow up for multivessel CAD status post CABG x4. HEENT is currently doing well. Denies any significant chest pain, shortness of breath, fever or chills. Physical Exam Vital signs: Vital Signs 10/21/18 12:00 10/21/18 13:00 10/21/18 14:00 Temperature Pulse Rate 76 80 74 Respiratory Rate Blood Pressure Pulse Oximetry 10/21/18 15:00 10/21/18 16:00 10/21/18 17:00 Temperature 97.9 F Pulse Rate 87 87 111 H Respiratory Rate 17 Blood Pressure 125/62 Pulse Oximetry 92 L 10/21/18 19:00 10/21/18 19:25 10/21/18 19:59 Temperature 98 F Pulse Rate 87 133 H Respiratory Rate 18 Blood Pressure 134/68 Pulse Oximetry 93 L 93 L 10/21/18 20:00 10/21/18 20:04 10/21/18 21:00 Temperature Pulse Rate 116 H 132 H Respiratory Rate Blood Pressure Pulse Oximetry 92 L 10/21/18 22:00 10/21/18 23:00 10/22/18 00:00 Temperature 98.1 F Pulse Rate 118 H 122 H 122 H Respiratory Rate 18 Blood Pressure 111/64 Pulse Oximetry 94 L 10/22/18 01:00 10/22/18 01:15 10/22/18 01:30 Temperature Pulse Rate 122 H Respiratory Rate Blood Pressure 111/67 116/66 113/61 Pulse Oximetry 10/22/18 01:45 10/22/18 02:00 10/22/18 03:00 Temperature 97.9 F Pulse Rate 122 H 119 H Respiratory Rate 20 Blood Pressure 113/69 119/69 104/58 L Pulse Oximetry 97 10/22/18 04:00 10/22/18 05:00 10/22/18 06:00 Temperature Pulse Rate 120 H 126 H 120 H Respiratory Rate Blood Pressure Pulse Oximetry 10/22/18 07:00 10/22/18 08:00 10/22/18 09:00 Temperature 97.9 F Pulse Rate 102 H 136 H 124 H Respiratory Rate 18 Blood Pressure 136/77 Pulse Oximetry 97 97 10/22/18 10:00 Temperature Pulse Rate 124 H Respiratory Rate Blood Pressure Pulse Oximetry Intake & Output 10/21/18 10/22/18 10/22/18 18:59 06:59 18:59 Intake Total 960 / 960 820 / 820 250 / 250 Output Total 200 / 200 1700 / 1700 Balance 760 / 760 -880 / -880 250 / 250 Weight 90 kg Intake: IV 250 / 250 Cordarone Inj 450 MG In D5W Inj 250 / 250 241 ML @ 1 MG/MIN 33.33 mls/hr IV.CONT TITRATE PRN Rx#: [id number] Oral 960 / 960 820 / 820 Output: Urine 200 / 200 1700 / 1700 Other: # Voids 4 Date of Last Bowel Movement 10/20/18 10/20/18 Narrative: GENERAL: Alert, oriented x3, NAD. Status post CABG x4 SKIN: Warm and dry. HEAD: Normocephalic. EYES: No scleral icterus. No injection or drainage. NECK: Supple, trachea midline. No JVD or lymphadenopathy. CARDIOVASCULAR: Regular rate and rhythm without murmurs, gallops, or rubs. Status post CABG x4. Prevana dressing to the chest present. RESPIRATORY: Breath sounds equal bilaterally. No accessory muscle use. GASTROINTESTINAL: Abdomen soft, non-tender, nondistended. MUSCULOSKELETAL: No cyanosis, or edema. BACK: Nontender without obvious deformity. No CVA tenderness. - Urinary Catheter Management Indwelling Temp Sensing Catheter Cath placed during this visit: yes, but has since been removed by the nurse Reason for continuing: Decision to DC catheter Insertion date: 10/18/18 Insertion time: 14:00 Removal date: 10/19/18 Removal time: 06:00 Results - Labs CBC & Chem 7: 10/22/18 09:21 10/22/18 09:21 Laboratory Results - last 24 hr 10/21/18 10/21/18 10/21/18 11:59 16:11 21:33 WBC RBC Hgb Hct MCV MCH MCHC RDW Plt Count MPV Sodium Potassium Chloride Carbon Dioxide Anion Gap BUN Creatinine Estimated GFR POC Glucose 115 H 100 102 Random Glucose Calcium Phosphorus Magnesium 10/22/18 10/22/18 10/22/18 07:54 09:21 09:21 WBC 9.5 RBC 3.61 L Hgb 11.8 L Hct 35.2 L MCV 97.7 MCH 32.7 MCHC 33.4 RDW 13.6 Plt Count 141 L MPV 9.7 Sodium 134 L Potassium 4.3 Chloride 102 Carbon Dioxide 26.4 Anion Gap 6 BUN 20 H Creatinine 1.34 H Estimated GFR 54 L POC Glucose 111 H Random Glucose 145 H Calcium 8.6 Phosphorus 2.9 Magnesium 2.2 - Imaging Impressions Chest X-Ray 10/22/18 00:00 CONCLUSION: Linear opacities at the lung bases favoring subsegmental atelectasis. Questionable hazy pleural-based opacity on the left could indicate a small effusion. These findings could be further characterized with good inspiratory formal PA and lateral views of the chest, if needed. - Procedures 10/16/2018 PROCEDURES: Left heart catheterization, coronary angiogram, ultrasound-guided access, moderate sedation 30 minutes. IMPRESSION: 1. Possible ST elevation myocardial infarction, more likely EKG changes consistent with previous anterior septal myocardial infarction. 2. Multivessel coronary artery disease with 100% occlusion of the right coronary artery as well as the left anterior descending and significant left main disease. 3. Ischemic cardiomyopathy with a previous ejection fraction of 20%. Assessment and Plan - Plan This patient is a 63 y/o Male with htn, dyslipidemia, history of tobacco abuse and Systolic chf with an ef of 20%. Patient presented to our ED with complaints of left sided chest pain. ED workup indicated lateral STEMI. Patient was emergently taken to cardiac [facility] [employer] [facility] where he was found to have multivessel coronary artery disease. Patient subsequently underwent CABG x4 on 10/18/2018. ST elevation myocardial infarction Ischemic cardiomyopathy EKG consistent with lateral ischemic changes. Status post cardiac cath which showed multivessel disease. Patient is a status post CABG x4 (LUA to LAD, SVG to OM1, OM2, RCA). Chest tube discontinued. Continue aspirin 81 mg, atorvastatin 40 mg. Need for Plavix would be left up to CV surgery. Continue metoprolol 12.5 mg twice daily as well as amiodarone 400 mg p.o. every 8 hours. -Heart rate continues to be in the 120's range. Will get an EKG. -we can likely increase beta magdi to 25 to 50mg BID. Cardiology, CV surgery following. Chronic kidney disease stage III A Baseline creatinine appears to be 1.3-1.6. Avoid nephrotoxins. Full code. SCDs. Discharge plan: Probable discharge today or tomorrow. Progress Note: Quality - AMI Clinical Trial Participant: No
--- NOTE | 2018-10-22 12:17 | P.PNCV ---
- Note Subjective/Hospital Course: A 63-year-old male transferred from [facility] secondary to chest pain. Chest pain apparently starts in his hands, moves of his arms and then comes to retrosternal chest pain. He has had this chest pain off and on for the past few days to a week, which last 2-5 minutes. More noticeable with exertion, relieved with rest. He was previously seen in 02/2018 and was found to have a very low ejection fraction of 20%. He was recommended an ischemic workup, but then he was concerned about insurance, which he is now under Medicaid plan. There was initially concern for ST elevation; however, STEMI was ruled out. He had negative troponins. He underwent cardiac catheterization by Dr. Butler today , which showed ejection fraction of 20% by his prior echo 03/2018, left main disease of 80%, the proximal LAD 70%, the mid distal LAD 100%, the diagonal 100% , the RCA 100%, the ramus 60%. We were consulted to evaluate for coronary artery bypass graft. Repeat echo EF 35-40% PAST MEDICAL HISTORY: Includes ischemic cardiomyopathy, hypertension, hyperlipidemia, history of hepatitis, which was apparently treated with medication, tobacco abuse. The patient has been smoking since the age of 16. Now, he is down to half a pack. He was up to a pack per day. The patient has chronic kidney disease with GFR 55. 10/17 pt pain free, scheduled for surgery second case in am 2500cc crystalloid Date of procedure: 10/18/18 Procedure: CABG x 4 LUA to LAd - fair SVG to OM1 - good SVG to OM2 - good SVG to RCA - good EVH DEIRDRE extubated after surgery 10/19 doing well, up in chair weaning 02 start BB, on amiodarone , ASA 12/1 Doing well Chest tubes continue to drain To reevaluate for removal in a.m. Discharge planning 10/21 Doing well Remove chest tubes today Likely discharge in a.m. 10/22 pt went into afib RVR last pm Objective: Vital Signs - 24 hr 10/21/18 13:00 10/21/18 14:00 10/21/18 15:00 Temperature 97.9 F Pulse Rate 80 74 87 Respiratory Rate 17 Blood Pressure 125/62 Pulse Oximetry 92 L 10/21/18 16:00 10/21/18 17:00 10/21/18 19:00 Temperature Pulse Rate 87 111 H 87 Respiratory Rate Blood Pressure Pulse Oximetry 10/21/18 19:25 10/21/18 19:59 10/21/18 20:00 Temperature 98 F Pulse Rate 133 H 116 H Respiratory Rate 18 Blood Pressure 134/68 Pulse Oximetry 93 L 93 L 10/21/18 20:04 10/21/18 21:00 10/21/18 22:00 Temperature Pulse Rate 132 H 118 H Respiratory Rate Blood Pressure Pulse Oximetry 92 L 10/21/18 23:00 10/22/18 00:00 10/22/18 01:00 Temperature 98.1 F Pulse Rate 122 H 122 H 122 H Respiratory Rate 18 Blood Pressure 111/64 111/67 Pulse Oximetry 94 L 10/22/18 01:15 10/22/18 01:30 10/22/18 01:45 Temperature Pulse Rate Respiratory Rate Blood Pressure 116/66 113/61 113/69 Pulse Oximetry 10/22/18 02:00 10/22/18 03:00 10/22/18 04:00 Temperature 97.9 F Pulse Rate 122 H 119 H 120 H Respiratory Rate 20 Blood Pressure 119/69 104/58 L Pulse Oximetry 97 10/22/18 05:00 10/22/18 06:00 10/22/18 07:00 Temperature 97.9 F Pulse Rate 126 H 120 H 102 H Respiratory Rate 18 Blood Pressure 136/77 Pulse Oximetry 97 10/22/18 08:00 10/22/18 09:00 10/22/18 10:00 Temperature Pulse Rate 136 H 124 H 124 H Respiratory Rate Blood Pressure Pulse Oximetry 97 Labs: Laboratory Results - last 12 hr 10/22/18 10/22/18 10/22/18 07:54 09:21 09:21 WBC 9.5 RBC 3.61 L Hgb 11.8 L Hct 35.2 L MCV 97.7 MCH 32.7 MCHC 33.4 RDW 13.6 Plt Count 141 L MPV 9.7 Sodium 134 L Potassium 4.3 Chloride 102 Carbon Dioxide 26.4 Anion Gap 6 BUN 20 H Creatinine 1.34 H Estimated GFR 54 L POC Glucose 111 H Random Glucose 145 H Calcium 8.6 Phosphorus 2.9 Magnesium 2.2 10/22/18 11:49 WBC RBC Hgb Hct MCV MCH MCHC RDW Plt Count MPV Sodium Potassium Chloride Carbon Dioxide Anion Gap BUN Creatinine Estimated GFR POC Glucose 112 H Random Glucose Calcium Phosphorus Magnesium Result Diagrams: 10/22/18 09:21 10/22/18 09:21 - Plan (2) Ischemic cardiomyopathy Plan: EF 35-40 will need low dose MARGARITA prior to dc (3) S/P CABG (coronary artery bypass graft) Plan: ASA, statin , BB OOB ambulate pulm toileting eval for HHC at discharge (4) Unstable angina Plan: on ASA, statin BB OOB ambulate pain control leave chest tubes in stable to transfer to stepdown wean 02 as tolerated (5) Atrial fibrillation Plan: on amiodarone gtt increase BB merary score 2 mod-high risk / will discuss with cardiology
[2018-10-22] MEDS ORDERED: Metoprolol Tartrate 25 MG Tablet PO ONE (12:30)
--- NOTE | 2018-10-22 14:54 | ECG ---
Date Performed: 10/22/2018 Time Performed: 12:20:32 PTAGE: 63 years EKG: Sinus rhythm . Possible inferior infarct - age undetermined Possible anteroseptal infarct - age undetermined Later al ST-T changes are nonspecific Abnormal ECG No significant change from prior electrocardiogram. DOCTOR: Ron Moura Interpretating Date/Time 10/22/2018 14:52:50
--- NOTE | 2018-10-22 15:36 | P.PNCA ---
Subjective Interval history: Afib with RVR overnight Converted back to sinus rhythm Medications and Allergies Active Medications: Active Medications Al Hydroxide/Mg Hydroxide (Milk Of Magnrandolph Liq) 30 ml PO DAILY [facility], [facility] Last Admin: 10/22/18 08:51 Dose: Not Given Albuterol (Duoneb Neb (Prn)) 1 ampul NEB Q2HR NEB PRN PRN Reason: WHEEZING Amiodarone HCl (Cordarone) 400 mg PO Q8HR [facility], [facility] Last Admin: 10/22/18 13:58 Dose: 400 mg Apixaban (Eliquis) 5 mg PO BID [facility], [facility]1983 Aspirin (Aspirin Chew) 81 mg PO DAILY [facility], [facility] Last Admin: 10/22/18 08:50 Dose: 81 mg Atorvastatin Calcium (Lipitor) 40 mg PO DAILY [facility], [facility] Last Admin: 10/22/18 08:50 Dose: 40 mg Bisacodyl (Dulcolax Supp) 10 mg RECTAL PRN PRN PRN Reason: SEE LABEL COMMENTS Dextrose (D50w Vial) 50 ml IV.PUSH UNSCH PRN PRN Reason: PER HYPOGLYCEMIA PROTOCOL Docusate Sodium (Colace) 100 mg PO BID [facility] Last Admin: 10/22/18 08:50 Dose: 100 mg Glucagon (Glucagon Inj) 1 mg OTHER PRN PRN PRN Reason: For hypoglycemia Insulin Aspart (Novolog Insulin Correctional Sugar Inj) 0 unit SQ [facility]; Protocol Last Admin: 10/22/18 12:34 Dose: Not Given Lisinopril (Prinivil) 5 mg PO DAILY [facility] Metoprolol Tartrate (Lopressor) 25 mg PO BID [facility] Multivitamins/Minerals (Theragran-M) 1 tab PO DAILY [facility] Last Admin: 10/22/18 08:50 Dose: 1 tab Ondansetron HCl (Zofran Inj) 4 mg IV.PUSH Q6H PRN PRN Reason: NAUSEA OR VOMITING Oxycodone/Acetaminophen (Percocet 5/325 Mg) 1 tab PO Q3H PRN PRN Reason: PAIN SCALE 1 TO 5 Last Admin: 10/22/18 05:23 Dose: 1 tab Pantoprazole Sodium (Protonix) 40 mg PO DAILY@06 [facility] Last Admin: 10/22/18 05:23 Dose: 40 mg Polyethylene Glycol (Miralax) 17 gm PO DAILY [facility] Last Admin: 10/22/18 08:51 Dose: Not Given Sennosides (Senokot) 8.6 mg PO HS [facility] Last Admin: 10/21/18 20:30 Dose: Not Given Sodium Biphosphate/Sodium Phosphate (Fleets Enema (Adult)) 118 ml RECTAL UNSCH PRN PRN Reason: SEE LABEL COMMENTS Sodium Chloride (Ns Flush) 2 ml IV.FLUSH BID [facility] Last Admin: 10/22/18 08:51 Dose: 2 ml Sodium Chloride (Ns Flush) 2 ml IV.FLUSH PRN PRN PRN Reason: FLUSH AFTER USING IV ACCESS Allergies Allergy/AdvReac Type Severity Reaction Status Date / Time No Known Allergies Allergy Verified 10/16/18 06:46 Home Medications Medication Instructions Recorded Confirmed Type atorvastatin 40 mg PO DAILY 10/16/18 10/16/18 History carvedilol 12.5 mg PO BID 10/16/18 10/16/18 History furosemide 20 mg PO DAILY 10/16/18 10/16/18 History lisinopril 40 mg PO DAILY 10/16/18 10/16/18 History Physical Exam Vital signs: Vital Signs 10/21/18 16:00 10/21/18 17:00 10/21/18 19:00 Temperature Pulse Rate 87 111 H 87 Respiratory Rate Blood Pressure Pulse Oximetry 10/21/18 19:25 10/21/18 19:59 10/21/18 20:00 Temperature 98 F Pulse Rate 133 H 116 H Respiratory Rate 18 Blood Pressure 134/68 Pulse Oximetry 93 L 93 L 10/21/18 20:04 10/21/18 21:00 10/21/18 22:00 Temperature Pulse Rate 132 H 118 H Respiratory Rate Blood Pressure Pulse Oximetry 92 L 10/21/18 23:00 10/22/18 00:00 10/22/18 01:00 Temperature 98.1 F Pulse Rate 122 H 122 H 122 H Respiratory Rate 18 Blood Pressure 111/64 111/67 Pulse Oximetry 94 L 10/22/18 01:15 10/22/18 01:30 10/22/18 01:45 Temperature Pulse Rate Respiratory Rate Blood Pressure 116/66 113/61 113/69 Pulse Oximetry 10/22/18 02:00 10/22/18 03:00 10/22/18 04:00 Temperature 97.9 F Pulse Rate 122 H 119 H 120 H Respiratory Rate 20 Blood Pressure 119/69 104/58 L Pulse Oximetry 97 10/22/18 05:00 10/22/18 06:00 10/22/18 07:00 Temperature 97.9 F Pulse Rate 126 H 120 H 102 H Respiratory Rate 18 Blood Pressure 136/77 Pulse Oximetry 97 10/22/18 08:00 10/22/18 09:00 10/22/18 10:00 Temperature Pulse Rate 136 H 124 H 124 H Respiratory Rate Blood Pressure Pulse Oximetry 97 10/22/18 11:00 Temperature 98.0 F Pulse Rate 80 Respiratory Rate 18 Blood Pressure 136/65 Pulse Oximetry 97 Intake & Output 10/21/18 10/22/18 10/22/18 18:59 06:59 18:59 Intake Total 960 / 960 820 / 820 250 / 250 Output Total 200 / 200 1700 / 1700 Balance 760 / 760 -880 / -880 250 / 250 Weight 90 kg Intake: IV 250 / 250 Cordarone Inj 450 MG In D5W Inj 250 / 250 241 ML @ 1 MG/MIN 33.33 mls/hr IV.CONT TITRATE PRN Rx#: [id number] Oral 960 / 960 820 / 820 Output: Urine 200 / 200 1700 / 1700 Other: # Voids 4 Date of Last Bowel Movement 10/20/18 10/20/18 Narrative: GENERAL: Alert, oriented x3, NAD. Status post CABG x4 SKIN: Warm and dry. HEAD: Normocephalic. EYES: No scleral icterus. No injection or drainage. NECK: Supple, trachea midline. No JVD or lymphadenopathy. CARDIOVASCULAR: Regular rate and rhythm without murmurs, gallops, or rubs. Status post CABG x4. Prevana dressing to the chest present. RESPIRATORY: Breath sounds equal bilaterally. No accessory muscle use. GASTROINTESTINAL: Abdomen soft, non-tender, nondistended. MUSCULOSKELETAL: No cyanosis, or edema. BACK: Nontender without obvious deformity. No CVA tenderness. - Urinary Catheter Management Indwelling Temp Sensing Catheter Cath placed during this visit: yes, but has since been removed by the nurse Reason for continuing: Decision to DC catheter Insertion date: 10/18/18 Insertion time: 14:00 Removal date: 10/19/18 Removal time: 06:00 Results 10/22/18 09:21 10/22/18 09:21 CBC 10/22/18 Range/Units 09:21 WBC 9.5 (4.0-11.0) th/mm3 RBC 3.61 L (4.50-5.90) mil/mm3 Hgb 11.8 L (13.0-17.0) gm/dL Hct 35.2 L (39.0-51.0) % Plt Count 141 L (150-450) th/mm3 Comprehensive Metabolic Panel 10/22/18 Range/Units 09:21 Sodium 134 L (136-145) meq/L Potassium 4.3 (3.5-5.1) meq/L Chloride 102 (98-107) meq/L Carbon Dioxide 26.4 (21.0-32.0) meq/L BUN 20 H (7-18) mg/dL Creatinine 1.34 H (0.60-1.30) mg/dL Calcium 8.6 (8.5-10.1) mg/dL Intake and Output 10/22/18 10/22/18 10/22/18 06:59 14:59 22:59 Intake Total 820 / 820 250 / 250 Output Total 1700 / 1700 Balance -880 / -880 250 / 250 Intake: IV 250 / 250 Cordarone Inj 450 MG In D5W Inj 250 / 250 241 ML @ 1 MG/MIN 33.33 mls/hr IV.CONT TITRATE PRN Rx#: [id number] Oral 820 / 820 Output: Urine 1700 / 1700 Other: Date of Last Bowel Movement 10/20/18 10/20/18 Weight 90 kg - Imaging and Cardiology Imaging: Impressions Chest X-Ray 10/22/18 00:00 CONCLUSION: Linear opacities at the lung bases favoring subsegmental atelectasis. Questionable hazy pleural-based opacity on the left could indicate a small effusion. These findings could be further characterized with good inspiratory formal PA and lateral views of the chest, if needed. Assessment and Plan - Assessment (1) Unstable angina Code(s): I20.0 - Unstable angina Status: Acute (2) CAD (coronary artery disease), burns [place] coronary artery Code(s): I25.10 - Atherosclerotic heart disease of [place] coronary artery without angina pectoris Status: Acute (3) Ischemic cardiomyopathy Code(s): I25.5 - Ischemic cardiomyopathy Status: Chronic - Plan 1) CAD/[place] Multi-vessel CAD CABGx4 Doing well 2) ICM EF 35-40% Better than previous cardiomyopathy 3) ASA/BB/Statin/Amiodarone 4) AFib with RVR Back in sinus rhythm Con't Amiodarone CHADSVASc = 2 Plan for Eliquis Progress Note: Quality - AMI Clinical Trial Participant: No
[2018-10-23 01:50] VITALS: TEMP 98.6; O2SAT 96
[2018-10-23] MEDS: Amiodarone 200 MG Tablet PO SCH (05:52)
[2018-10-23 06:33] VITALS: PULSE 71
[2018-10-23] MEDS: Multivitamin/Minerals Therapeutic Tablet PO SCH (08:59)
[2018-10-23] MEDS: Docusate Sodium 100 MG Capsule PO SCH (08:59)
[2018-10-23] MEDS: Metoprolol Tartrate 25 MG Tablet PO SCH (08:59)
[2018-10-23] MEDS ORDERED: Lisinopril 5 MG Tablet PO SCH (09:00)
[2018-10-23] MEDS: Polyethylene Glycol 3350 17 GM Packet PO SCH (09:01)
[2018-10-23] MEDS: Insulin NovoLOG Aspart Correctional Sugar Inj SQ SCH (09:06)
--- NOTE | 2018-10-23 09:41 | P.PN ---
Subjective Interval history: Follow up for multivessel CAD status post CABG x4, post op Afib. Patient is doing well. Back to NSR. No CP, SOB, fever, chills. Tolerating diet well, had BM. Wants to go home. Physical Exam Vital signs: Vital Signs 10/22/18 10:00 10/22/18 11:00 10/22/18 12:00 Temperature 98.0 F Pulse Rate 124 H 131 H 84 Respiratory Rate 18 Blood Pressure 136/65 Pulse Oximetry 97 10/22/18 13:00 10/22/18 14:00 10/22/18 15:00 Temperature 98.0 F Pulse Rate 78 82 87 Respiratory Rate 18 Blood Pressure 152/70 H Pulse Oximetry 94 L 10/22/18 16:00 10/22/18 17:00 10/22/18 18:00 Temperature Pulse Rate 80 94 H 86 Respiratory Rate Blood Pressure Pulse Oximetry 10/22/18 19:00 10/22/18 19:36 10/22/18 20:00 Temperature 99.4 F Pulse Rate 83 83 77 Respiratory Rate 18 Blood Pressure 144/69 H Pulse Oximetry 94 L 94 L 10/22/18 21:00 10/22/18 22:00 10/22/18 23:00 Temperature 98.6 F Pulse Rate 82 75 71 Respiratory Rate 19 Blood Pressure 115/66 Pulse Oximetry 96 10/23/18 00:00 10/23/18 01:00 10/23/18 02:00 Temperature Pulse Rate 71 82 70 Respiratory Rate Blood Pressure Pulse Oximetry 10/23/18 03:00 10/23/18 04:00 10/23/18 05:00 Temperature 98.6 F Pulse Rate 72 74 74 Respiratory Rate 16 Blood Pressure 148/70 H Pulse Oximetry 96 10/23/18 06:00 Temperature Pulse Rate 71 Respiratory Rate Blood Pressure Pulse Oximetry Intake & Output 10/22/18 10/23/18 10/23/18 18:59 06:59 18:59 Intake Total 1090 / 1090 420 / 420 Output Total 350 / 350 600 / 600 Balance 740 / 740 -180 / -180 Weight 89.9 kg Intake: IV 350 / 350 Cordarone Inj 450 MG In D5W Inj 250 / 250 241 ML @ 1 MG/MIN 33.33 mls/hr IV.CONT TITRATE PRN Rx#: [id number] Oral 740 / 740 420 / 420 Output: Urine 350 / 350 600 / 600 Other: Date of Last Bowel Movement 10/20/18 Narrative: GENERAL: Alert, oriented x3, NAD. Status post CABG x4 SKIN: Warm and dry. HEAD: Normocephalic. EYES: No scleral icterus. No injection or drainage. NECK: Supple, trachea midline. No JVD or lymphadenopathy. CARDIOVASCULAR: Regular rate and rhythm without murmurs, gallops, or rubs. Status post CABG x4. Prevana dressing to the chest present. RESPIRATORY: Breath sounds equal bilaterally. No accessory muscle use. GASTROINTESTINAL: Abdomen soft, non-tender, nondistended. MUSCULOSKELETAL: No cyanosis, or edema. BACK: Nontender without obvious deformity. No CVA tenderness. - Urinary Catheter Management Indwelling Temp Sensing Catheter Cath placed during this visit: yes, but has since been removed by the nurse Reason for continuing: Decision to DC catheter Insertion date: 10/18/18 Insertion time: 14:00 Removal date: 10/19/18 Removal time: 06:00 Results - Labs CBC & Chem 7: 10/22/18 09:21 10/22/18 09:21 Laboratory Results - last 24 hr 10/22/18 10/22/18 10/22/18 09:21 09:21 11:49 WBC 9.5 RBC 3.61 L Hgb 11.8 L Hct 35.2 L MCV 97.7 MCH 32.7 MCHC 33.4 RDW 13.6 Plt Count 141 L MPV 9.7 Sodium 134 L Potassium 4.3 Chloride 102 Carbon Dioxide 26.4 Anion Gap 6 BUN 20 H Creatinine 1.34 H Estimated GFR 54 L POC Glucose 112 H Random Glucose 145 H Calcium 8.6 Phosphorus 2.9 Magnesium 2.2 10/22/18 10/22/18 17:44 21:04 WBC RBC Hgb Hct MCV MCH MCHC RDW Plt Count MPV Sodium Potassium Chloride Carbon Dioxide Anion Gap BUN Creatinine Estimated GFR POC Glucose 123 H 106 Random Glucose Calcium Phosphorus Magnesium - Imaging Impressions Chest X-Ray 10/22/18 00:00 CONCLUSION: Linear opacities at the lung bases favoring subsegmental atelectasis. Questionable hazy pleural-based opacity on the left could indicate a small effusion. These findings could be further characterized with good inspiratory formal PA and lateral views of the chest, if needed. - Procedures 10/16/2018 PROCEDURES: Left heart catheterization, coronary angiogram, ultrasound-guided access, moderate sedation 30 minutes. IMPRESSION: 1. Possible ST elevation myocardial infarction, more likely EKG changes consistent with previous anterior septal myocardial infarction. 2. Multivessel coronary artery disease with 100% occlusion of the right coronary artery as well as the left anterior descending and significant left main disease. 3. Ischemic cardiomyopathy with a previous ejection fraction of 20%. Assessment and Plan - Plan This patient is a 63 y/o Male with htn, dyslipidemia, history of tobacco abuse and Systolic chf with an ef of 20%. Patient presented to our ED with complaints of left sided chest pain. ED workup indicated lateral STEMI. Patient was emergently taken to cardiac [employer] where he was found to have multivessel coronary artery disease. Patient subsequently underwent CABG x4 on 10/18/2018. ST elevation myocardial infarction Ischemic cardiomyopathy EKG consistent with lateral ischemic changes. Status post cardiac cath which showed multivessel disease. Patient is a status post CABG x4 (LUA to LAD, SVG to OM1, OM2, RCA). Chest tube discontinued. Continue aspirin 81 mg, atorvastatin 40 mg. Need for Plavix would be left up to CV surgery. Continue metoprolol 25 mg twice daily as well as amiodarone 400 mg p.o. every 8 hours. -Patient is on Apixaban now as well, probably should be continued for at least 4 weeks. Chronic kidney disease stage III A Baseline creatinine appears to be 1.3-1.6. Avoid nephrotoxins. Full code. SCDs. Discharge plan: Probable discharge today. Waiting for CV surgery clearance and recommendations on Amiodarone Progress Note: Quality - AMI Clinical Trial Participant: No
--- NOTE | 2018-10-23 10:09 | P.DS ---
Date of admission: 10/16/18 06:10 Primary care physician: No Primary Care Physician Attending physician on discharge: Swapnil Muñoz Anticipated date of discharge: 10/23/18 Brief History from admission: This patient is a 63 y/o Male with htn, dyslipidemia, history of tobacco abuse and Systolic chf with an ef of 20%. Patient presented to our ED with complaints of left sided chest pain that occured early this morning. The chest pain was constant and was not improving so he came into the ED for evaluation. He denies any fevers or chills. No abd pain. He did have some sob with exertion and worsening of the chest pain on exertion. He has had similar episodes to this over the past few weeks. pmh HTN, dyslipidemia, systolic chf ef 20% surg hx none family history HTN social hx extensive tobacco smoking hx Patient update on day of discharge: Patient is doing well. No CP, SOB, fever, chills. Wants to go home. CV surgery okay to discharge patient. DS: Medications - Discharge Medications Prescriptions: amiodarone [Pacerone] 200 mg PO DAILY #42 tab apixaban 5 mg PO BID #60 tab aspirin 81 mg PO DAILY #90 tab lisinopril 5 mg PO DAILY #30 tab metoprolol tartrate 25 mg PO BID #60 tab gmomvyma-djal-MM-calcium-mins [Thera M Plus (ferrous fumarat)] 1 tab PO DAILY # 30 tab oxycodone-acetaminophen 1 tab PO Q6H PRN #20 tab PRN Reason: Pain 5-10 pantoprazole 40 mg PO DAILY@06 #30 tab DS: Summary Hospital Course: This patient is a 63 y/o Male with htn, dyslipidemia, history of tobacco abuse and Systolic chf with an ef of 20%. Patient presented to our ED with complaints of left sided chest pain. ED workup indicated lateral STEMI. Patient was emergently taken to cardiac [employer] where he was found to have multivessel coronary artery disease. Patient subsequently underwent CABG x4 on 10/18/2018. ST elevation myocardial infarction Ischemic cardiomyopathy EKG consistent with lateral ischemic changes. Status post cardiac cath which showed multivessel disease. Patient is a status post CABG x4 (LUA to LAD, SVG to OM1, OM2, RCA). Chest tube discontinued. Continue aspirin 81 mg, atorvastatin 40 mg. Continue metoprolol 25 mg twice daily as well as amiodarone 400 mg p.o. every 8 hours. -Patient is on Apixaban now as well, probably should be continued for at least 4 weeks. -Further continuation of Apixaban would be upto patient's group burner machine/ cardiothoracic surgeon. Chronic kidney disease stage III A Baseline creatinine appears to be 1.3-1.6. Avoid nephrotoxins. Full code. SCDs. Discussed with CV surgery - okay to discharge. Checked [employer] database which shows his last prescription for Evarts filled on 01/19/2018. We will provide 5-day worth of pain medication due to acute pain exception status post surgery. - Time Spent with Patient Total time spent providing and/or coordinating discharge services: Greater than 30 minutes - Quality: AMI Clinical Trial Participant: No Exam Vital signs: Vital Signs 10/22/18 11:00 10/22/18 12:00 10/22/18 13:00 Temperature 98.0 F Pulse Rate 131 H 84 78 Respiratory Rate 18 Blood Pressure 136/65 Pulse Oximetry 97 10/22/18 14:00 10/22/18 15:00 10/22/18 16:00 Temperature 98.0 F Pulse Rate 82 87 80 Respiratory Rate 18 Blood Pressure 152/70 H Pulse Oximetry 94 L 10/22/18 17:00 10/22/18 18:00 10/22/18 19:00 Temperature Pulse Rate 94 H 86 83 Respiratory Rate Blood Pressure Pulse Oximetry 10/22/18 19:36 10/22/18 20:00 10/22/18 21:00 Temperature 99.4 F Pulse Rate 83 77 82 Respiratory Rate 18 Blood Pressure 144/69 H Pulse Oximetry 94 L 94 L 10/22/18 22:00 10/22/18 23:00 10/23/18 00:00 Temperature 98.6 F Pulse Rate 75 71 71 Respiratory Rate 19 Blood Pressure 115/66 Pulse Oximetry 96 10/23/18 01:00 10/23/18 02:00 10/23/18 03:00 Temperature 98.6 F Pulse Rate 82 70 72 Respiratory Rate 16 Blood Pressure 148/70 H Pulse Oximetry 96 10/23/18 04:00 10/23/18 05:00 10/23/18 06:00 Temperature Pulse Rate 74 74 71 Respiratory Rate Blood Pressure Pulse Oximetry Intake & Output 10/22/18 10/23/1810/23/18 18:59 06:59 18:59 Intake Total 1090 / 1090 420 / 420 Output Total 350 / 350 600 / 600 Balance 740 / 740 -180 / -180 Weight 89.9 kg Intake: IV 350 / 350 Cordarone Inj 450 MG In D5W Inj 250 / 250 241 ML @ 1 MG/MIN 33.33 mls/hr IV.CONT TITRATE PRN Rx#: [id number] Oral 740 / 740 420 / 420 Output: Urine 350 / 350 600 / 600 Other: Date of Last Bowel Movement 10/20/18 Narrative: GENERAL: Alert, oriented x3, NAD. Status post CABG x4 SKIN: Warm and dry. HEAD: Normocephalic. EYES: No scleral icterus. No injection or drainage. NECK: Supple, trachea midline. No JVD or lymphadenopathy. CARDIOVASCULAR: Regular rate and rhythm without murmurs, gallops, or rubs. Status post CABG x4. Prevana dressing to the chest present. RESPIRATORY: Breath sounds equal bilaterally. No accessory muscle use. GASTROINTESTINAL: Abdomen soft, non-tender, nondistended. MUSCULOSKELETAL: No cyanosis, or edema. BACK: Nontender without obvious deformity. No CVA tenderness. Results Procedures completed during hospitalization: 10/16/2018 PROCEDURES: Left heart catheterization, coronary angiogram, ultrasound-guided access, moderate sedation 30 minutes. IMPRESSION: 1. Possible ST elevation myocardial infarction, more likely EKG changes consistent with previous anterior septal myocardial infarction. 2. Multivessel coronary artery disease with 100% occlusion of the right coronary artery as well as the left anterior descending and significant left main disease. 3. Ischemic cardiomyopathy with a previous ejection fraction of 20%. Labs on day of discharge: Labs from last 24 hours 10/22/18 10/22/18 10/22/18 21:04 17:44 11:49 Sodium Potassium Chloride Carbon Dioxide Anion Gap BUN Creatinine Estimated GFR POC Glucose 106 123 H 112 H Random Glucose Calcium Phosphorus Magnesium 10/22/18 09:21 Sodium 134 L Potassium 4.3 Chloride 102 Carbon Dioxide 26.4 Anion Gap 6 BUN 20 H Creatinine 1.34 H Estimated GFR 54 L POC Glucose Random Glucose 145 H Calcium 8.6 Phosphorus 2.9 Magnesium 2.2 - Impressions ITS Impressions Carotid Doppler Study 10/16/18 10:31 CONCLUSION: 1. Right Internal Carotid Artery: Moderate atherosclerotic plaquing at the bifurcation. No hemodynamically significant stenosis identified in the internal carotid circulation. 2. Left Internal Carotid Artery: Moderate atherosclerotic plaquing at the bifurcation. No hemodynamically significant stenosis identified in the internal carotid circulation. 3. The exam does demonstrate elevated velocities within the origin of the external carotid circulation bilaterally. 4. There is antegrade flow within both vertebral arteries. Lower Extremity Ultrasound 10/16/18 10:31 CONCLUSION: 1. Venous mapping as above. Venous Doppler Study 10/16/18 10:31 CONCLUSION: 1. No DVT identified. Chest X-Ray 10/22/18 00:00 CONCLUSION: Linear opacities at the lung bases favoring subsegmental atelectasis. Questionable hazy pleural-based opacity on the left could indicate a small effusion. These findings could be further characterized with good inspiratory formal PA and lateral views of the chest, if needed. Discharge Plan - Discharge Disposition Patient Disposition: /Home Health Service - Discharge Condition Condition: Good - Discharge Order Discharge Orders: Discharge Order (Routine); Ordered 10/23/18 Ordered By: Swapnil Muñoz - Discharge Details Anticipated Discharge Date: 10/23/18 - Physicians Team Primary Care Provider: Primary Care Physici,No Attending Provider: Swapnil Muñoz Other Providers: Brenda Williamson MD ; Jeferson Butler DO
[2018-10-23 12:49] VITALS: RESP 19
[2018-10-23 12:50] VITALS: BP 120/72
--- NOTE | 2018-10-23 15:05 | P.PNCA ---
Subjective Interval history: No events overnight Heart rates stable Medications and Allergies Active Medications: Active Medications Al Hydroxide/Mg Hydroxide (Milk Of [place] Liq) 30 ml PO DAILY [facility] Last Admin: 10/23/18 09:01 Dose: Not Given Albuterol (Duoneb Neb (Prn)) 1 ampul NEB Q2HR NEB PRN PRN Reason: WHEEZING Amiodarone HCl (Cordarone) 400 mg PO Q8HR [facility] Last Admin: 10/23/18 05:52 Dose: 400 mg Apixaban (Eliquis) 5 mg PO BID [facility] Last Admin: 10/23/18 08:59 Dose: 5 mg Aspirin (Aspirin Chew) 81 mg PO DAILY [facility] Last Admin: 10/23/18 09:00 Dose: 81 mg Atorvastatin Calcium (Lipitor) 40 mg PO DAILY [facility] Last Admin: 10/23/18 08:59 Dose: 40 mg Bisacodyl (Dulcolax Supp) 10 mg RECTAL PRN PRN PRN Reason: SEE LABEL COMMENTS Dextrose (D50w Vial) 50 ml IV.PUSH UNSCH PRN PRN Reason: PER HYPOGLYCEMIA PROTOCOL Docusate Sodium (Colace) 100 mg PO BID [facility] Last Admin: 10/23/18 08:59 Dose: 100 mg Glucagon (Glucagon Inj) 1 mg OTHER PRN PRN PRN Reason: For hypoglycemia Insulin Aspart (Novolog Insulin Correctional Sugar Inj) 0 unit SQ [facility]; Protocol Last Admin: 10/23/18 09:06 Dose: Not Given Lisinopril (Prinivil) 5 mg PO DAILY [facility] Last Admin: 10/23/18 08:58 Dose: 5 mg Metoprolol Tartrate (Lopressor) 25 mg PO BID [facility] Last Admin: 10/23/18 08:59 Dose: 25 mg Multivitamins/Minerals (Theragran-M) 1 tab PO DAILY [facility] Last Admin: 10/23/18 08:59 Dose: 1 tab Ondansetron HCl (Zofran Inj) 4 mg IV.PUSH Q6H PRN PRN Reason: NAUSEA OR VOMITING Oxycodone/Acetaminophen (Percocet 5/325 Mg) 1 tab PO Q3H PRN PRN Reason: PAIN SCALE 1 TO 5 Last Admin: 10/23/18 08:59 Dose: 1 tab Pantoprazole Sodium (Protonix) 40 mg PO DAILY@06 [facility] Last Admin: 10/23/18 05:52 Dose: 40 mg Polyethylene Glycol (Miralax) 17 gm PO DAILY [facility] Last Admin: 10/23/18 09:01 Dose: 17 gm Sennosides (Senokot) 8.6 mg PO HS [facility] Last Admin: 10/22/18 21:02 Dose: 8.6 mg Sodium Biphosphate/Sodium Phosphate (Fleets Enema (Adult)) 118 ml RECTAL UNSCH PRN PRN Reason: SEE LABEL COMMENTS Sodium Chloride (Ns Flush) 2 ml IV.FLUSH BID [facility] Last Admin: 10/23/18 09:01 Dose: 2 ml Sodium Chloride (Ns Flush) 2 ml IV.FLUSH PRN PRN PRN Reason: FLUSH AFTER USING IV ACCESS Allergies Allergy/AdvReac Type Severity Reaction Status Date / Time No Known Allergies Allergy Verified 10/16/18 06:46 Home Medications Medication Instructions Recorded Confirmed Type atorvastatin 40 mg PO DAILY 10/16/18 10/16/18 History Physical Exam Vital signs: Vital Signs 10/22/18 16:00 10/22/18 17:00 10/22/18 18:00 Temperature Pulse Rate 80 94 H 86 Respiratory Rate Blood Pressure Pulse Oximetry 10/22/18 19:00 10/22/18 19:36 10/22/18 20:00 Temperature 99.4 F Pulse Rate 83 83 77 Respiratory Rate 18 Blood Pressure 144/69 H Pulse Oximetry 94 L 94 L 10/22/18 21:00 10/22/18 22:00 10/22/18 23:00 Temperature 98.6 F Pulse Rate 82 75 71 Respiratory Rate 19 Blood Pressure 115/66 Pulse Oximetry 96 10/23/18 00:00 10/23/18 01:00 10/23/18 02:00 Temperature Pulse Rate 71 82 70 Respiratory Rate Blood Pressure Pulse Oximetry 10/23/18 03:00 10/23/18 04:00 10/23/18 05:00 Temperature 98.6 F Pulse Rate 72 74 74 Respiratory Rate 16 Blood Pressure 148/70 H Pulse Oximetry 96 10/23/18 06:00 10/23/18 07:00 10/23/18 08:00 Temperature 98.6 F Pulse Rate 71 71 71 Respiratory Rate 19 Blood Pressure 130/68 Pulse Oximetry 96 10/23/18 10:50 10/23/18 11:00 Temperature 98.6 F Pulse Rate 71 Respiratory Rate 19 Blood Pressure 120/72 Pulse Oximetry 96 96 Intake & Output 10/22/18 10/23/18 10/23/18 18:59 06:59 18:59 Intake Total 1090 / 1090 420 / 420 Output Total 350 / 350 600 / 600 Balance 740 / 740 -180 / -180 Weight 89.9 kg Intake: IV 350 / 350 Cordarone Inj 450 MG In D5W Inj 250 / 250 241 ML @ 1 MG/MIN 33.33 mls/hr IV.CONT TITRATE PRN Rx#: [id number] Oral 740 / 740 420 / 420 Output: Urine 350 / 350 600 / 600 Other: Date of Last Bowel Movement 10/20/18 10/20/18 Narrative: GENERAL: Alert, oriented x3, NAD. Status post CABG x4 SKIN: Warm and dry. HEAD: Normocephalic. EYES: No scleral icterus. No injection or drainage. NECK: Supple, trachea midline. No JVD or lymphadenopathy. CARDIOVASCULAR: Regular rate and rhythm without murmurs, gallops, or rubs. Status post CABG x4. Prevana dressing to the chest present. RESPIRATORY: Breath sounds equal bilaterally. No accessory muscle use. GASTROINTESTINAL: Abdomen soft, non-tender, nondistended. MUSCULOSKELETAL: No cyanosis, or edema. BACK: Nontender without obvious deformity. No CVA tenderness. - Urinary Catheter Management Indwelling Temp Sensing Catheter Cath placed during this visit: yes, but has since been removed by the nurse Reason for continuing: Decision to DC catheter Insertion date: 10/18/18 Insertion time: 14:00 Removal date: 10/19/18 Removal time: 06:00 Results 10/22/18 09:21 10/22/18 09:21 CBC 10/22/18 Range/Units 09:21 WBC 9.5 (4.0-11.0) th/mm3 RBC 3.61 L (4.50-5.90) mil/mm3 Hgb 11.8 L (13.0-17.0) gm/dL Hct 35.2 L (39.0-51.0) % Plt Count 141 L (150-450) th/mm3 Comprehensive Metabolic Panel 10/22/18 Range/Units 09:21 Sodium 134 L (136-145) meq/L Potassium 4.3 (3.5-5.1) meq/L Chloride 102 (98-107) meq/L Carbon Dioxide 26.4 (21.0-32.0) meq/L BUN 20 H (7-18) mg/dL Creatinine 1.34 H (0.60-1.30) mg/dL Calcium 8.6 (8.5-10.1) mg/dL Intake and Output 10/23/18 10/23/18 10/23/18 06:59 14:59 22:59 Intake Total 420 / 420 Output Total 600 / 600 Balance -180 / -180 Intake: Oral 420 / 420 Output: Urine 600 / 600 Other: Date of Last Bowel Movement 10/20/18 Weight 89.9 kg - Imaging and Cardiology Imaging: Impressions Chest X-Ray 10/22/18 00:00 CONCLUSION: Linear opacities at the lung bases favoring subsegmental atelectasis. Questionable hazy pleural-based opacity on the left could indicate a small effusion. These findings could be further characterized with good inspiratory formal PA and lateral views of the chest, if needed. Assessment and Plan - Assessment (1) Unstable angina Code(s): I20.0 - Unstable angina Status: Acute (2) CAD (coronary artery disease), [place] coronary artery Code(s): I25.10 - Atherosclerotic heart disease of [place] coronary artery without angina pectoris Status: Acute (3) Ischemic cardiomyopathy Code(s): I25.5 - Ischemic cardiomyopathy Status: Chronic - Plan 1) CAD/[place] Multi-vessel CAD CABGx4 Doing well 2) ICM EF 35-40% Better than previous cardiomyopathy 3) ASA/BB/Statin/Amiodarone 4) AFib with RVR Back in sinus rhythm Con't Amiodarone CHADSVASc = 2 Plan for Eliquis 5) Cardiovascularly stable for discharge Progress Note: Quality - AMI Clinical Trial Participant: No
== END 2018-10-23 12:00 | disposition home health service (06) ==
LOC: PHED 05:48 → PHEDA 06:10 → HCIS 08:38 → HCVI 10-18 16:27 → HCPC 10-19 10:56
PROVIDERS: ADMIT Hospitalist; ATTEND Hospitalist